=== PATIENT | female | born 1995 | race Caucasian/White ===

== ENCOUNTER 2017-06-29 12:46 | Emergency (ER) | payer SELFPAY ==
[2017-06-29] MEDS ORDERED: METHYLPREDNISOLONE 125 MG INJ ONE (14:09)
[2017-06-29] MEDS ORDERED: ALBUTEROL 2.5 MG/3 ML NEB SOL ONE (14:09)
[2017-06-29] MEDS ORDERED: HYDROCODONE/CHLORPHEN 5 ML/OSYR ONE (14:10)
--- NOTE | 2017-06-29 14:14 | RAD REPORT ---
EXAM DESCRIPTION: RAD - Chest Single View - 06/29/2017 1:57 pm CLINICAL HISTORY: Cough and chest pain. COMPARISON: 09/28/2016 FINDINGS: Portable technique limits examination quality. The lungs are grossly clear. The heart is normal in size. No displaced fractures. IMPRESSION: No acute intrathoracic process suspected.
--- NOTE | 2017-06-29 14:25 | EDPHYS ---
Physician Documentation [facility] Name: Ben Rosa Age: 22 yrs Sex: Female : 1995 Arrival Date: 06/29/2017 Time: 12:50 Bed 25 Private MD: ED Physician Roman Florez HPI: 06/29 13:39 This 22 yrs old Female presents to ER via Ambulatory with complaints of jr8 Congestion. 13:39 The patient reports fever, with an emergency department temperature of 99.6 degrees jr8 Fahrenheit. Onset: The symptoms/episode began/occurred gradually, 2 day(s) ago. Modifying factors: The patient has had contact with sick son. Associated signs and symptoms: Pertinent positives: chest pain, cough, nausea, runny nose, sinus congestion, shortness of breath, sore throat, vomiting. Severity of symptoms: At their worst the symptoms were moderate in the emergency department the symptoms are unchanged. The patient has not experienced similar symptoms in the past. The patient has not recently seen a physician. 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 - Social history:: Smoking status: Patient uses tobacco products, smokes one-half pack cigarettes per day. ROS: 13:39 Eyes: Negative for injury, pain, redness, and discharge, Neck: Negative for injury, jr8 pain, and swelling, Back: Negative for injury and pain, MS/Extremity: Negative for injury and deformity, Skin: Negative for injury, rash, and discoloration, Neuro: Negative for headache, weakness, numbness, tingling, and seizure. 13:39 Constitutional: Positive for body aches, chills, fever, malaise. 13:39 ENT: Positive for rhinorrhea, sinus congestion, sore throat, Negative for drainage from ear(s), ear pain, nasal discharge. 13:39 Cardiovascular: Positive for chest pain, with cough, Negative for edema, orthopnea, palpitations, paroxysmal nocturnal dyspnea. 13:39 Respiratory: Positive for cough, shortness of breath. 13:39 Abdomen/GI: Positive for nausea and vomiting, Negative for abdominal pain, diarrhea, constipation, abdominal cramps, abdominal distension, anorexia, dysphagia, hematemesis, black/tarry stool, rectal pain, rectal bleeding, bowel incontinence, flatulence. Exam: 13:39 Head/Face: Normocephalic, atraumatic. Eyes: Pupils equal round and reactive to light, jr8 extra-ocular motions intact. Lids and lashes normal. Conjunctiva and sclera are non-icteric and not injected. Cornea within normal limits. Periorbital areas with no swelling, redness, or edema. Neck: Trachea midline, no thyromegaly or masses palpated, and no cervical lymphadenopathy. Supple, full range of motion without nuchal rigidity, or vertebral point tenderness. No Meningismus. Cardiovascular: Regular rate and rhythm with a normal S1 and S2. No gallops, murmurs, or rubs. Normal PMI, no JVD. No pulse deficits. Abdomen/GI: Soft, non-tender, with normal bowel sounds. No distension or tympany. No guarding or rebound. No evidence of tenderness throughout. Back: No spinal tenderness. No costovertebral tenderness. Full range of motion. Skin: Warm, dry with normal turgor. Normal color with no rashes, no lesions, and no evidence of cellulitis. MS/ Extremity: Pulses equal, no cyanosis. Neurovascular intact. Full, normal range of motion. Neuro: Awake and alert, GCS 15, oriented to person, place, time, and situation. Cranial nerves II-XII grossly intact. Motor strength 5/5 in all extremities. Sensory grossly intact. Cerebellar exam normal. Normal gait. 13:39 ENT: Exam is negative for earache, ear discharge, TM abnormalities, Nose: External nose: no obvious acute abnormality, Nasal septum: is midline, Nasal mucosa: erythematous, moist, Turbinates: are swollen bilaterally, Mouth: Lips: moist, Oral mucosa: pink and intact, moist, Gums: pink, Tongue: is moist, Posterior pharynx: Airway: patent, Tonsils: are normal in appearance, no enlargement, no erythema, no exudate, no ulcerations, Uvula: midline, non-edematous, no erythema, swelling, is not appreciated, erythema, that is mild. 13:39 Respiratory: the patient does not display signs of respiratory distress, Respirations: normal, symetrical, no use of accessory muscles, no grunting, no evidence of nasal flaring, no prolonged exhalations, no pursed lip breathing, no retractions, no shallow respirations, no splinting, no tachypnea, Breath sounds: bronchial sounds, that are mild, are heard diffusely. Vital Signs: 13:00 BP 128 / 95; Pulse 85; Resp 16; Temp 99.6(TE); Pulse Ox 100% ; Weight 74.84 kg; Height hb 5 ft. 4 in. (162.56 cm); Pain 4/10; 13:39 BP 114 / 68; Pulse 80; Resp 18; Temp 99.9; Pulse Ox 100% ; tl3 14:31 BP 102 / 82; Pulse 76; Resp 18; Pulse Ox 100% ; tl3 13:00 Body Mass Index 28.32 (74.84 kg, 162.56 cm) hb MDM: 13:14 Patient medically screened. jr8 14:24 Data reviewed: vital signs, nurses notes, lab test result(s), Flu: negative radiologic jr8 studies, plain films, and as a result, I will discharge patient. Data interpreted: Pulse oximetry: on room air is 100 %. Interpretation: normal. Counseling: I had a detailed discussion with the patient and/or guardian regarding: the historical points, exam findings, and any diagnostic results supporting the discharge/admit diagnosis, lab results, radiology results, the need for outpatient follow up, a family practitioner, to return to the emergency department if symptoms worsen or persist or if there are any questions or concerns that arise at home. 06/29 13:23 Order name: Flu; Complete Time: 14:25 jr8 06/29 13:23 Order name: Strep; Complete Time: 14:25 jr8 06/29 13:23 Order name: XRAY Chest (1 view); Complete Time: 14:15 jr8 06/29 14:25 Order name: Throat Culture EDMS Administered Medications: 13:53 Drug: Tussionex Pennkinetic ER 5 ml Route: PO; tl3 14:37 Follow up: Response: No adverse reaction; Marked relief of symptoms; Pain is decreased tl3 13:55 Drug: Albuterol 2.5 mg Route: Inhalation; tl3 14:38 Follow up: Response: No adverse reaction; Marked relief of symptoms tl3 14:02 Drug: SOLU-Medrol 125 mg Route: IM; Site: left gluteus; tl3 14:38 Follow up: Response: No adverse reaction; Marked relief of symptoms tl3 Disposition: 15:26 Co-signature as Attending Physician, Roman Florez MD I agree with the assessment and kdr plan of care. Disposition: 06/29/17 14:24 Discharged to Home. Impression: Acute bronchitis, Acute pharyngitis. - Condition is Stable. - Discharge Instructions: Acute Bronchitis. - Prescriptions for Zithromax Z- Real 250 mg Oral Tablet - take 1 tablet by ORAL route as directed for 5 days Day 1 - take two (2) tablets one time. Day 2, 3, 4 , 5 take one (1) tablet once daily.; 6 tablet. Albuterol Sulfate 90 mcg/actuation - inhale 1-2 puff by INHALATION route every 4-6 hours; 1 Inhaler. Guaifenesin AC 10- 100 mg/5 mL Oral Liquid - take 10 milliliter by ORAL route every 4 hours As needed; 240 milliliter. - Medication Reconciliation Form, Thank You Letter, Antibiotic Education, Prescription Opioid Use form. - Follow up: Private Physician; When: 2 - 3 days; Reason: Recheck today's complaints, Continuance of care, Re-evaluation by your physician. - Problem is new. - Symptoms have improved. Signatures: Dispatcher [employer] EDIN Roman Florez MD MD kdr Roszak, Josh, PA PA jr8 Bharati Bella RN RN Mary Mahoney RN RN tl3
--- NOTE | 2017-06-29 14:25 | ER ---
Nurse's Notes [facility] Name: Ben Rosa Age: 22 yrs Sex: Female : 1995 Arrival Date: 06/29/2017 Time: 12:50 Bed 25 Private MD: Diagnosis: Acute bronchitis;Acute pharyngitis Presentation: 06/29 13:01 Presenting complaint: Patient states: Nonproductive cough, pain with cough, sinus hb congestin x 4 days. 13:03 Transition of care: patient was not received from another setting of care. Onset of hb symptoms is unknown. Care prior to arrival: None. 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 - Social history:: Smoking status: Patient uses tobacco products, smokes one-half pack cigarettes per day. Screenin:39 Abuse screen: Denies threats or abuse. Nutritional screening: No deficits noted. tl3 Tuberculosis screening: No symptoms or risk factors identified. Fall Risk None identified. Assessment: 13:39 General: Appears uncomfortable, well groomed, well developed, well nourished, Behavior tl3 is cooperative, appropriate for age, anxious. Pain: Complains of pain in chest and throat Pain currently is 8 out of 10 on a pain scale. Neuro: Level of Consciousness is awake, alert, obeys commands, Oriented to person, place, time, situation, Appropriate for age. Cardiovascular: Denies Heart tones S1 S2 present Capillary refill < 3 seconds in right in left in bilateral. Respiratory: Reports cough that is productive, hacking, persistent. GI: No signs and/or symptoms were reported involving the gastrointestinal system. GI: No signs and/or symptoms were reported involving the gastrointestinal system. Reports posttussive emesis. : No signs and/or symptoms were reported regarding the genitourinary system. EENT: No signs and/or symptoms were reported regarding the EENT system. Derm: No signs and/or symptoms reported regarding the dermatologic system. Musculoskeletal: No signs and/or symptoms reported regarding the musculoskeletal system. 14:31 Reassessment: Patient and/or family updated on plan of care and expected duration. Pain tl3 level reassessed. Patient is alert, oriented x 3, equal unlabored respirations, skin warm/dry/pink. pt breathing much easier, states that throat is still a little sore from all the coughing but overall she was feeling much better Patient states feeling better. Vital Signs: 13:00 BP 128 / 95; Pulse 85; Resp 16; Temp 99.6(TE); Pulse Ox 100% ; Weight 74.84 kg; Height hb 5 ft. 4 in. (162.56 cm); Pain 4/10; 13:39 BP 114 / 68; Pulse 80; Resp 18; Temp 99.9; Pulse Ox 100% ; tl3 14:31 BP 102 / 82; Pulse 76; Resp 18; Pulse Ox 100% ; tl3 13:00 Body Mass Index 28.32 (74.84 kg, 162.56 cm) hb ED Course: 12:50 Patient arrived in ED. mr 13:03 Triage completed. hb 13:04 Arm band placed on right wrist. hb 13:14 Mj Smith PA is PHCP. jr8 13:14 Roman Florez MD is Attending Physician. jr8 13:39 Mary Mahoney, JORGE LUIS is Primary Nurse. tl3 13:39 No apparent distress. Resting quietly. tl3 13:39 Patient has correct armband on for positive identification. Bed in low position. Call tl3 light in reach. Side rails up X 1. Adult w/ patient. Warm blanket given. 13:39 No provider procedures requiring assistance completed. tl3 13:57 XRAY Chest (1 view) In Process Unspecified. EDMS 14:37 Throat Culture Sent. tl3 14:40 Patient did not have IV access during this emergency room visit. tl3 Administered Medications: 13:53 Drug: Tussionex Pennkinetic ER 5 ml Route: PO; tl3 14:37 Follow up: Response: No adverse reaction; Marked relief of symptoms; Pain is decreased tl3 13:55 Drug: Albuterol 2.5 mg Route: Inhalation; tl3 14:38 Follow up: Response: No adverse reaction; Marked relief of symptoms tl3 14:02 Drug: SOLU-Medrol 125 mg Route: IM; Site: left gluteus; tl3 14:38 Follow up: Response: No adverse reaction; Marked relief of symptoms tl3 Outcome: 14:24 Discharge ordered by MD. joel 14:38 Discharged to home ambulatory. tl3 14:38 Condition: good 14:38 Discharge instructions given to patient, Instructed on discharge instructions, follow up and referral plans. medication usage, Demonstrated understanding of instructions, follow-up care, medications, Prescriptions given X 3, demonstrated proper inhaler use, stressed fluid intake 14:40 Patient left the ED. tl3 Signatures: Dispatcher [employer] EDNupur Grant Josh, PA PA jr8 Bharati Bella, RN RN Mary Mahoney RN RN tl3 Corrections: (The following items were deleted from the chart) 13:59 13:39 BP 114 / 68; Pulse 80bpm; Resp 80bpm; Pulse Ox 100%; Temp 99.9F; tl3 tl3
== END 2017-06-29 14:40 | disposition home or self-care (01) ==
LOC: ER 12:46
DX: J20.9 Acute bronchitis, unspecified (principal); J02.9 Acute pharyngitis, unspecified; F17.210 Nicotine dependence, cigarettes, uncomplicated; Z88.0 Allergy status to penicillin; Z88.1 Allergy status to other antibiotic agents
CPT/HCPCS: 71045; 87070; 87081; 87804; 96372; 99284; J2930

== ENCOUNTER 2019-12-23 07:37 | Day surgery (SDC) | payer BC ==
--- OUTSIDE RECORDS SUMMARY | 2019-12-23 07:47 | XMS REPORT | Continuity of Care Document ---
:[address] [facility] t Address [address] [place] [address] Care Team Providers Name Role Phone Res-Colpo/Leep Attending Clinician Unavailable Doctor Unassigned, Name Attending Clinician Unavailable Problems This patient has no known problems. Allergies, Adverse Reactions, Alerts This patient has no known allergies or adverse reactions. Medications This patient has no known medications. Procedures This patient has no known procedures. Encounters Start End Encounter Admission Attending Care Care Encounter Source Date/Time Date/Time Type Type Clinicians Facility Department ID 2019-10-28 2019-10-30 Office Res-Colpo/L [facility] [id number] 10:03:42 10:59:07 Visit Roslyn campbell [id number] [facility] [id number] 2019-10-29 2019-10-29 Orders Doctor ZAMARRIPA [id number] 30 00:00:00 00:00:00 Only UnassignedYONATAN [id number] [place] [facility] [id number] Results This patient has no known results.
[2019-12-23] MEDS ORDERED: Ringers Lactate 1,000 ML IV ONE ×2 (08:18→10:17)
[2019-12-23] MEDS ORDERED: LIDOCAINE 2% MPF 5 ML VIAL ONE (09:07)
[2019-12-23] MEDS ORDERED: propofoL 200 MG/20 ML VIAL IV ONE (09:07)
[2019-12-23] MEDS ORDERED: FENTANYL CITR 100 MCG/2 ML ONE ×2 (09:07)
[2019-12-23] MEDS ORDERED: MIDAZOLAM HCL 2 MG/2 ML INJ ONE (09:07)
[2019-12-23] MEDS ORDERED: KETOROLAC 30 MG/ML INJ ONE (09:07)
[2019-12-23] MEDS ORDERED: KETAMINE HCL 500 MG/5 ML VIAL ONE (09:07)
[2019-12-23] MEDS ORDERED: ONDANSETRON 4 MG/2 ML VIAL ONE (09:07)
[2019-12-23] MEDS ORDERED: dexAMETHasone 10 MG/ML VIAL ONE (09:07)
[2019-12-23] MEDS ORDERED: HYDROMORPHONE HCL 1 MG/ML INJ ONE (09:09)
[2019-12-23] MEDS ORDERED: CIPROFLOXACIN 400mg IV 400 MG/200 ML BAG IV ONE (09:12)
[2019-12-23] MEDS ORDERED: NS 0.9% VIAL 10 ML ONE (09:31)
--- NOTE | 2019-12-23 09:35 | P.BOP ---
Preoperative diagnosis: perianal abscess Postoperative diagnosis: same Primary procedure: EUA, anoscopy, rigid proctoscopy, I &D perianal abscess Estimated blood loss: <10cc Specimen: pus Findings: abscess Anesthesia: General Complications: None Transferred to: Recovery Room Condition: Good
[2019-12-23] MEDS: HYDROMORPHONE HCL 1 MG/ML INJ ONE ×2 (10:35→10:40)
[2019-12-23] MEDS ORDERED: PROMETHAZINE INJ 25 MG/ML AMP ONE (10:49)
--- NOTE | 2019-12-23 11:31 | OP ---
Surgeon: Juan Carrion MD Diagnosis: Perianal abscess. Procedures: EUA, anoscopy, proctoscopy, incision and drainage of perianal abscess. Disposition: Home. Packing: Nu Gauze 1 quarter of an inch daily. The patient has taken already Cipro. We are going to give her Ultram for pain and a normal saline kyra ttle. MATTI/MERCEDES Voice ID: [id number] Report ID: [id number]
--- NOTE | 2019-12-23 11:34 | OP ---
Date of Procedure: 12/23/2019 Surgeon: Juan Carrion MD Preoperative Diagnosis: Perianal abscess. Postoperative Diagnosis: Perianal abscess. Procedures: Examination under anesthesia, anoscopy, rigid proctoscopy, incision and drainage of damian anal abscess. Anesthesia: General plus local. Packing: Iodoform quarter of an inch. Indications: This is the case of a female, who comes to us with history of Crohn disease, history of previous fistulas. Now, she has a perianal abscess. Not too long ago, we have to take care of 1 of her fistulous abscess and she improved from that when she healed completely. Now, this is a new 1 i n the anterior perianal region. It is tender. She can barely sit, so she was seen few hours ago. S he wants to have this done as soon as possible. So, we booked emergently for the above procedure wit h benefits, alternatives, and risks including, but not limited to infection, bleeding, damage to marky cent structures, anesthesia complication, recurrence, anal stricture and incontinence, bowel perforat ion, DC, and even . She also understands this may not relieve any symptoms. She might need mor e than one surgical intervention. She understands she should go back to the [employer] sure her Crohn disease or inflammatory bowel disease are treated properly to avoid flare-up in ca se this are related to fistulas or sometimes associated with inflammatory bowel disease. She underst ood and signed the consent. Description Of Procedure: The patient was brought to the operating room, placed in supine position, anesthesia was done without complication. The patient was placed in lithotomy position with proper p rotection. A time-out was called. Perianal area was prepped and draped in usual sterile fashion. R ectal examination was done followed by rigid proctoscopy all the way about a 13 cm limited by amount of stools present. After that, I proceeded to place an anoscope weaned on the side. This allowed me to visualize the anal canal. We did not see any connection of this abscess to the rectum. So, at t hat time, we made an incision in the anterior perianal region and we found a large amount of pus pres ent. The loculations were explored and opened. Irrigation was done. Hemostasis was obtained. Loca l anesthesia was applied. The area was packed with iodoform quarter of an inch. The patient tolerat ed the procedure well. The patient sent to recovery in stable condition. MATTI/MERCEDES Voice ID: [id number] Report ID: [id number]
[2019-12-23] MEDS ORDERED: TRAMADOL HCL 50 MG TAB ONE (12:41)
[2019-12-23 12:46] VITALS: BP 101/59; TEMP 97.6; O2SAT 96
== END 2019-12-23 12:45 | disposition home or self-care (01) ==
LOC: PRE 07:37 → DS 12:45
PROVIDERS: ATTEND Surgery
PROC: 0D9Q0ZZ Drainage of Anus, Open Approach (ICD-10-PCS; 2019-12-23)
PROC: 0DJD8ZZ Inspection of Lower Intestinal Tract, Via Natural or Artificial Opening Endoscopic (ICD-10-PCS; principal; 2019-12-23 09:00)
DX: K61.0 Anal abscess (principal); F17.210 Nicotine dependence, cigarettes, uncomplicated
CPT/HCPCS: 87070; 87205; 87075; 46050; 45300; J2704; J2550; J2250; J3010 ×2; J1100; J1170 ×2; J7120 ×2; J2405; J0744

== ENCOUNTER 2020-02-19 13:29 | Inpatient (IN) | payer BC ==
--- OUTSIDE RECORDS SUMMARY | 2020-02-19 14:05 | XMS REPORT | Continuity of Care Document ---
:[address] [facility] t Address [address] [place] [address] Care Team Providers Name Role Phone Res-Colpo/Leep [...] ID 2019-10-28 2019-10-30 Office Res-Colpo/L [facility] [id number] 10:03:42 10:59:07 Visit shannan [facility] [id number] [facility] [id number] 2019-10-29 2019-10-29 Orders Doctor ZAMARRIPA [id number] 30 00:00:00 00:00:00 Only UnassignedYONATAN [id number] [place] [facility] [id number] Results This patient has no known results.
[2020-02-19 15:11] LABS: Urine Blood NEGATIVE (NEG); Urine Glucose NEGATIVE (NEG); Urine Protein NEGATIVE (NEG); Urine Specific Gravity 1.015 (1.005-1.030)
[2020-02-19] MEDS ORDERED: ONDANSETRON 4 MG/2 ML VIAL ONE ×2 (15:15→19:30)
[2020-02-19] MEDS ORDERED: NA CHLORIDE 0.9% 1,000 ML ONE (15:15)
[2020-02-19] MEDS ORDERED: MORPHINE 4 MG/ML SYR ONE ×2 (15:15→20:05)
[2020-02-19] MEDS ORDERED: FAMOTIDINE 20 MG/2 ML VIAL IV ONE (15:15)
[2020-02-19 15:41] LABS: Absolute Lymphocytes (CBC) 2.9 K/uL (0.7-4.9); Basophils % 0.7 % (0-1.3); Hematocrit 39.3 % (36.0-45.0); Lymphocytes % 26.2 % (15.3-44.8); MPV 10.5 fL (7.6-11.3); RBC Red Blood Cell Count 4.29 M/uL (3.86-4.86)
[2020-02-19 15:51] LABS: ALT/SGPT 31 U/L (12-78); AST/SGOT 18 U/L (15-37); Albumin 3.8 g/dL (3.4-5.0); Alkaline Phosphatase 74 U/L (45-117); BUN Blood Urea Nitrogen 15 mg/dL (7-18); Bicarbonate 29 mmol/L (21-32); Bilirubin Direct < 0.1 mg/dL (0-0.2); Bilirubin Total 0.4 mg/dL (0.2-1.0); Glucose Level 78 mg/dL (74-106); Lipase 67 U/L (73-393); Potassium 3.7 mmol/L (3.5-5.1); Protein, Total 7.8 g/dL (6.4-8.2); Sodium Level 139 mmol/L (136-145)
--- NOTE | 2020-02-19 16:20 | RAD REPORT ---
EXAM DESCRIPTION: CTAbdomen Pelvis W Contrast - 02/19/2020 4:07 pm CLINICAL HISTORY: Abdominal pain. abdominal pain, rectal pain COMPARISON: Abdomen Pelvis W Contrast dated 10/30/2015; Abdomen Pelvis W Contrast dated 09/27/2015 TECHNIQUE: Biphasic CT imaging of the abdomen and pelvis was performed with 100 ml non-ionic IV cont rast. All CT scans are performed using dose optimization technique as appropriate and may include automated exposure control or mA/KV adjustment according to patient size. FINDINGS: The lung bases are clear. The liver, spleen, pancreas, adrenal glands and kidneys are within normal limits. No bowel obstruction, free air, free fluid or abscess. The appendix is normal. No evidence of signi ficant lymphadenopathy. No suspicious bony findings. 25 mm Bartholin's cyst along the right. Perianal soft tissues appear prominent without discrete perianal abscess seen. There may be a promine nt fistulous tract seen in the right medial buttock. IMPRESSION: Prominent perianal soft tissues are present probable fistulous tract in the medial right buttocks soft tissues. No evidence of perianal abscess.
[2020-02-19] MEDS ORDERED: Levofloxacin 750mg IV 750 MG/150 ML BAG IV ONE (17:51)
--- NOTE | 2020-02-19 18:41 | EDPHYS ---
Physician Documentation [facility] Name: Ben Rosa Age: 24 yrs Sex: Female : 1995 Arrival Date: 02/19/2020 Time: 13:30 Bed 16 Private MD: ED Physician Arcenio Chua HPI: 02/18 14:53 This 24 yrs old Female presents to ER via Ambulatory with complaints of jmm Nausea, Anal Fistula. 14:53 The patient presents to the emergency department with nausea, vomiting, abdominal pain. jmm Onset: The symptoms/episode began/occurred gradually. Possible causes: flare up of bowel problem. The symptoms are aggravated by nothing. The symptoms are alleviated by nothing. Associated signs and symptoms: Pertinent negatives: fever. The patient has experienced similar episodes in the past. 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 - Social history:: Smoking status: Patient denies any tobacco usage or history of. ROS: 14:53 Constitutional: Negative for fever, chills, and weight loss, Cardiovascular: Negative jmm for chest pain, palpitations, and edema, Respiratory: Negative for shortness of breath, cough, wheezing, and pleuritic chest pain. 14:53 Abdomen/GI: Positive for abdominal pain, rectal pain. 14:53 All other systems are negative. Exam: 14:53 Constitutional: This is a well developed, well nourished patient who is awake, alert, jmm and in no acute distress. Head/Face: atraumatic. Eyes: EOMI, no conjunctival erythema appreciated ENT: Moist Mucus Membranes Neck: Trachea midline, Supple Chest/axilla: Normal chest wall appearance and motion. Cardiovascular: Regular rate and rhythm. No edema appreciated Respiratory: Normal respirations, no respiratory distress appreciated Abdomen/GI: Non distended, soft Back: Normal ROM Skin: General appearance color normal MS/ Extremity: Moves all extremities, no obvious deformities appreciated, no edema noted to the lower extremities Neuro: Awake and alert, normal gait Psych: Behavior is normal, Mood is normal, Patient is cooperative and pleasant 14:53 Abdomen/GI: Palpation: soft, moderate abdominal tenderness, in the left upper quadrant and left lower quadrant. 14:53 Back: ROM is normal. 14:53 Musculoskeletal/extremity: ROM: intact in all extremities. 14:53 Skin: Appearance: Color: normal in color. 14:53 Neuro: Orientation: is normal, Mentation: is normal, Memory: is normal. 14:53 Psych: Behavior/mood is pleasant, cooperative. Vital Signs: 14:23 BP 115 / 67; Pulse 67; Resp 16; Temp 98.2; Pulse Ox 100% on R/A; Weight 91.63 kg (R); iw Height 5 ft. 4 in. (162.56 cm); Pain 4/10; 15:30 BP 110 / 81; Pulse 71; Resp 16 S; Pulse Ox 100% ; ca1 16:35 BP 109 / 53; Pulse 81; Resp 16 S; Pulse Ox 100% on R/A; ca1 17:35 BP 103 / 61; Pulse 79; Resp 16 S; Pulse Ox 100% on R/A; ca1 18:32 BP 122 / 86; Pulse 91; Resp 16 S; Pulse Ox 100% on R/A; ca1 19:50 BP 114 / 74; Pulse 70; Resp 16 S; Pulse Ox 100% on R/A; ca1 14:23 Body Mass Index 34.67 (91.63 kg, 162.56 cm) iw MDM: 14:31 Patient medically screened. caro 18:37 Data reviewed: vital signs, nurses notes. Counseling: I had a detailed discussion with jose l the patient and/or guardian regarding: the historical points, exam findings, and any diagnostic results supporting the discharge/admit diagnosis, radiology results, the need for further work-up and treatment in the hospital. ED course: I discussed the patient with Dr. Carrion whom will consult on admission. I discussed the patient with Mj Márquez PA-C whom accepted the patient to Dr. Souza's service. . 02/18 14:48 Order name: Basic Metabolic Panel; Complete Time: 15:54 [facility] 02/18 14:48 Order name: CBC with Diff; Complete Time: 15:54 [facility] 02/18 14:48 Order name: Hepatic Function; Complete Time: 15:54 [facility] 02/18 14:48 Order name: Lipase; Complete Time: 15:54 [facility] 02/18 15:08 Order name: Urine Dipstick--Ancillary (enter results); Complete Time: 15:46 [facility] 02/18 15:08 Order name: Urine --Ancillary (enter results); Complete Time: 15:46 [facility] 02/18 14:48 Order name: CT Abd/Pelvis - IV Contrast Only; Complete Time: 16:23 [facility] 02/18 14:48 Order name: IV Saline Lock; Complete Time: 15:10 [facility] 02/18 14:48 Order name: Labs collected and sent; Complete Time: 15:10 [facility] 02/18 14:48 Order name: Urine Dipstick-Ancillary (obtain specimen); Complete Time: 15:06 [facility] 02/18 14:48 Order name: Urine Test (obtain specimen); Complete Time: 15:06 [facility] 02/18 18:48 Order name: CONS Physician Consult EDMS Administered Medications: 15:09 Drug: NS 0.9% 1000 ml Route: IV; Rate: 1 bolus; Site: left antecubital; ca1 16:10 Follow up: Response: No adverse reaction; IV Status: Completed infusion; IV Intake: ca1 1000ml 15:10 Drug: Pepcid 20 mg Route: IVP; Site: left antecubital; ca1 16:00 Follow up: Response: No adverse reaction ca1 15:12 Drug: Zofran (Ondansetron) 4 mg Route: IVP; Site: left antecubital; ca1 17:35 Follow up: Response: No adverse reaction; Nausea is decreased; RASS: Alert and Calm (0) ca1 15:14 Drug: morphine 4 mg {Note: rass 0.} Route: IVP; Site: left antecubital; ca1 16:00 Follow up: Response: No adverse reaction; Pain is decreased; RASS: Alert and Calm (0) ca1 17:40 Drug: LevaQUIN 750 mg Volume: 150 ml; Route: IVPB; Infused Over: 90 mins; Site: left ca1 antecubital; 19:55 Follow up: Response: No adverse reaction; IV Status: Completed infusion ca1 19:21 Drug: Zofran (Ondansetron) 4 mg Route: IVP; Site: left antecubital; ca1 20:00 Follow up: Response: No adverse reaction; Nausea is decreased ca1 19:55 Drug: morphine 4 mg {Note: rass 0.} Route: IVP; Site: left antecubital; ca1 20:30 Follow up: Response: No adverse reaction; Pain is decreased; RASS: Alert and Calm (0) ca1 19:58 Drug: vancoMYCIN 1 grams Route: IVPB; Infused Over: 2 hrs; Site: left antecubital; ca1 20:55 Follow up: Response: No adverse reaction; IV Status: Infusion continued upon admission ca1 Disposition: 02/19 06:00 Co-signature as Attending Physician, Arcenio Chua MD I agree with the assessment and [facility] plan of care. Disposition: 02/19/20 18:40 Hospitalization ordered by Ascenc[facility] Souza for Observation. Preliminary diagnosis are Perineal Cellulitis, Intractable Pain, Vomiting. - Bed requested for Telemetry/MedSurg (observation). - Status is Observation. jd3 - Condition is Stable. - Problem is an acute exacerbation. - Symptoms are unchanged. Signatures: Dispatcher [employer] Alida Gonzales RN RN dw Anderson, Corey, MD MD cha Mickail, Joel, PA PA jmm Roszak, Josh, PA PA [id number] Alhaji Redman RN RN jd3 Cierra Sosa RN RN ca1 Corrections: (The following items were deleted from the chart) 02/18 19:52 18:40 Hospitalization Ordered by Ascencion Souza for Observation. Preliminary diagnosis dw is Perineal Cellulitis; Intractable Pain; Vomiting. Bed requested for Telemetry/MedSurg (observation). Status is Observation. Condition is Stable. Problem is an acute exacerbation. Symptoms are unchanged. [facility] 20:02 19:52 02/19/2020 18:40 Hospitalization Ordered by Ascencion Souza for Observation. dw Preliminary diagnosis is Perineal Cellulitis; Intractable Pain; Vomiting. Bed requested for Telemetry/MedSurg (observation). Status is Observation. Condition is Stable. Problem is an acute exacerbation. Symptoms are unchanged. 20:55 20:02 02/19/2020 18:40 Hospitalization Ordered by Ascencion Souza for Observation. jd3 Preliminary diagnosis is Perineal Cellulitis; Intractable Pain; Vomiting. Bed requested for Telemetry/MedSurg (observation). Status is Observation. Condition is Stable. Problem is an acute exacerbation. Symptoms are unchanged.
--- NOTE | 2020-02-19 18:41 | ER ---
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 i cant stop throwing up as well. I called the GI center and Dr. Carrion and they told me to come here. Coronavirus screen: At this time, unable to obtain information related to travel outside the [place] Ebola Screen: No symptoms or risks identified at this time. 14:21 Method Of Arrival: Ambulatory iw 14:23 Initial Sepsis Screen: Does the patient meet any 2 criteria? No. Patient's initial iw sepsis screen is negative. Does the patient have a suspected source of infection? No. Patient's initial sepsis screen is negative. Risk Assessment: Do you want to hurt yourself or someone else? Patient reports no desire to harm self or others. Onset of symptoms is unknown. 14:23 Acuity: JOSE 3 iw Triage Assessment: 20:05 GI: Reports. ca1 20:31 General: Behavior is. 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 - Social history:: Smoking status: Patient denies any tobacco usage or history of. Screenin:45 Abuse screen: Denies threats or abuse. Denies injuries from another. Nutritional ca1 screening: No deficits noted. Tuberculosis screening: No symptoms or risk factors identified. Fall Risk IV access (20 points). Assessment: 14:30 General: Appears in no apparent distress. comfortable. Pain: Complains of pain in left ca1 lower quadrant and left upper quadrant Pain currently is 7 out of 10 on a pain scale. Neuro: Level of Consciousness is awake, alert, obeys commands, Oriented to person, place, time, situation. Cardiovascular: Heart tones S1 S2 present Capillary refill < 3 seconds Patient's skin is warm and dry. Respiratory: Airway is patent Respiratory effort is even, unlabored, Respiratory pattern is regular, symmetrical, Breath sounds are clear bilaterally. GI: Abdomen is round non-distended, Bowel sounds present X 4 quads. Abd is soft and non tender X 4 quads. : No signs and/or symptoms were reported regarding the genitourinary system. EENT: No signs and/or symptoms were reported regarding the EENT system. Derm: Skin is intact, is healthy with good turgor, Skin is pink, warm \T\ dry. Musculoskeletal: Circulation, motion, and sensation intact. Capillary refill < 3 seconds. 15:30 Reassessment: Patient appears in no apparent distress at this time. Patient and/or ca1 family updated on plan of care and expected duration. Pain level reassessed. Patient is alert, oriented x 3, equal unlabored respirations, skin warm/dry/pink. 16:35 Reassessment: Patient appears in no apparent distress at this time. Patient and/or ca1 family updated on plan of care and expected duration. Pain level reassessed. Patient is alert, oriented x 3, equal unlabored respirations, skin warm/dry/pink. 17:35 Reassessment: Patient appears in no apparent distress at this time. Patient and/or ca1 family updated on plan of care and expected duration. Pain level reassessed. Patient is alert, oriented x 3, equal unlabored respirations, skin warm/dry/pink. 18:35 Reassessment: Patient appears in no apparent distress at this time. Patient and/or ca1 family updated on plan of care and expected duration. Pain level reassessed. Patient is alert, oriented x 3, equal unlabored respirations, skin warm/dry/pink. 19:35 Reassessment: Patient appears in no apparent distress at this time. Patient and/or ca1 family updated on plan of care and expected duration. Pain level reassessed. Patient is alert, oriented x 3, equal unlabored respirations, skin warm/dry/pink. Vital Signs: 14:23 BP 115 / 67; Pulse 67; Resp 16; Temp 98.2; Pulse Ox 100% on R/A; Weight 91.63 kg (R); iw Height 5 ft. 4 in. (162.56 cm); Pain 4/10; 15:30 BP 110 / 81; Pulse 71; Resp 16 S; Pulse Ox 100% ; ca1 16:35 BP 109 / 53; Pulse 81; Resp 16 S; Pulse Ox 100% on R/A; ca1 17:35 BP 103 / 61; Pulse 79; Resp 16 S; Pulse Ox 100% on R/A; ca1 18:32 BP 122 / 86; Pulse 91; Resp 16 S; Pulse Ox 100% on R/A; ca1 19:50 BP 114 / 74; Pulse 70; Resp 16 S; Pulse Ox 100% on R/A; ca1 14:23 Body Mass Index 34.67 (91.63 kg, 162.56 cm) iw ED Course: 13:30 Patient arrived in ED. ag5 14:23 Triage completed. iw 14:23 Arm band placed on right wrist. iw 14:25 Sony Hudson PA is PHCP. jmm 14:25 Arcenio Chua MD is Attending Physician. jmm 14:42 Cierra Sosa, JORGE LUIS is Primary Nurse. ca1 15:05 Inserted saline lock: 22 gauge in left antecubital area, using aseptic technique. ca1 ,using aseptic technique. by Alpa, process control tech Blood collected. 15:45 Patient has correct armband on for positive identification. Placed in gown. Bed in low ca1 position. Call light in reach. Side rails up X 1. Pulse ox on. NIBP on. Warm blanket given. 15:45 No provider procedures requiring assistance completed. ca1 16:06 CT Abd/Pelvis - IV Contrast Only In Process Unspecified. EDMS 18:39 Ascencion Souza is Hospitalizing Provider. jmm 20:30 Patient admitted, IV remains in place. ca1 Administered Medications: 15:09 Drug: NS 0.9% 1000 ml Route: IV; Rate: 1 bolus; Site: left antecubital; ca1 16:10 Follow up: Response: No adverse reaction; IV Status: Completed infusion; IV Intake: ca1 1000ml 15:10 Drug: Pepcid 20 mg Route: IVP; Site: left antecubital; ca1 16:00 Follow up: Response: No adverse reaction ca1 15:12 Drug: Zofran (Ondansetron) 4 mg Route: IVP; Site: left antecubital; ca1 17:35 Follow up: Response: No adverse reaction; Nausea is decreased; RASS: Alert and Calm (0) ca1 15:14 Drug: morphine 4 mg {Note: rass 0.} Route: IVP; Site: left antecubital; ca1 16:00 Follow up: Response: No adverse reaction; Pain is decreased; RASS: Alert and Calm (0) ca1 17:40 Drug: LevaQUIN 750 mg Volume: 150 ml; Route: IVPB; Infused Over: 90 mins; Site: left ca1 antecubital; 19:55 Follow up: Response: No adverse reaction; IV Status: Completed infusion ca1 19:21 Drug: Zofran (Ondansetron) 4 mg Route: IVP; Site: left antecubital; ca1 20:00 Follow up: Response: No adverse reaction; Nausea is decreased ca1 19:55 Drug: morphine 4 mg {Note: rass 0.} Route: IVP; Site: left antecubital; ca1 20:30 Follow up: Response: No adverse reaction; Pain is decreased; RASS: Alert and Calm (0) ca1 19:58 Drug: vancoMYCIN 1 grams Route: IVPB; Infused Over: 2 hrs; Site: left antecubital; ca1 20:55 Follow up: Response: No adverse reaction; IV Status: Infusion continued upon admission ca1 Intake: 16:10 IV: 1000ml; Total: 1000ml. ca1 Outcome: 18:40 Decision to Hospitalize by Provider. jose l 20:30 Admitted to Tele accompanied by [facility], via wheelchair, room 410, with chart, Report ca1 called to JORGE LUIS Cornell 20:30 Condition: stable ca1 20:30 Instructed on the need for admit. 20:55 Patient left the ED. [email or web address] Signatures: Dispatcher [employer] EDMS Sony Hudson PA PA jmm Williams, Irene, RN Alhaji Collins RN RN jCierra Grimaldo RN RN ca1 Shannan, Jeremy [facility]
[2020-02-19] MEDS ORDERED: VANCOMYCIN 1 GM/VIAL ONE (19:13)
[2020-02-19] MEDS ORDERED: NA CHLORIDE 0.9% 250 ML ONE (19:14)
[2020-02-19] MEDS ORDERED: ACETAMINOPHEN 500 MG TAB PO PRN (20:39)
[2020-02-19] MEDS: NA CHLORIDE 0.9% 1,000 ML IV SCH (22:00)
[2020-02-19 22:01] VITALS: BMI 34.7
[2020-02-20] MEDS ORDERED: VANCOMYCIN 1 GM/VIAL ONE (03:51)
[2020-02-20] MEDS ORDERED: NA CHLORIDE 0.9% 250 ML ONE (03:52)
[2020-02-20] MEDS ORDERED: VANCOMYCIN/NS 1 gm 1 GM/250 ML BAG IVPB SCH (04:00)
--- NOTE | 2020-02-20 04:50 | P.HP ---
Certification for Inpatient Patient admitted to: Inpatient With expected LOS: >2 Midnights Patient will require the following post-hospital care: None Practitioner: I am a practitioner with admitting privileges, knowledge of patient current condition, hospital course, and medical plan of care. Services: Services provided to patient in accordance with Admission requirements found in Title 42 Section 412.3 of the Code of Federal Regulations <Christian Smith - Last Filed: 02/20/20 04:42> Patient History Date of Service: 02/20/20 Primary Care Provider: Dr. Lanza Reason for admission: Perennial cellulitis History of Present Illness: This is a 24-year-old female with history of perianal abscess in the past. Patient subsequently was also supposed to be following up with gastroenterology for undiagnosed lower GI problems. Patient has had several bouts of cysts and perianal abscesses which have been concerning for other lower GI processes such as ulcerative colitis or Crohn's disease. General surgery had referred to GI but patient has not been able to have a colonoscopy secondary to COVID. The patient presented to the emergency room today for pain to the lower pelvic and buttock region. Patient stated that she was started on oral antibiotics by her surgeon but that the pain was getting worse so was referred to the emergency room. Patient was worked up in the emergency room and found to have soft tissue swelling around the buttocks and perineal region. No discernible abscess noted. Patient with 11,000 white cell count but no other acute blood work findings. At this time hospital medicine was consulted for admission. Patient was assessed by myself in the emergency room and found to have approximate only 2 mm hole to the perineum with scant purulent discharge and induration noted. As such patient will be admitted and put on antibiotics in general surgery will be consulted. Home medications list reviewed: Yes - Past Medical/Surgical History Has patient received pneumonia vaccine in the past: Yes Diabetic: No -: Fistula surgery 3x -: 3 adenoid surgery -: tonsillectomy - Family History Family History: Reviewed- Non-Contributory - Family History Father -: Heart disease, Hypertension Mother -: Hypertension, Seizures, Other (see notes) - Social History Smoking Status: Former smoker Smoking therapy provided: No Alcohol use: No CD- Drugs: No Caffeine use: Yes Place of Residence: Home <LuisChristian - Last Filed: 02/20/20 04:42> Date of Service: 02/20/20 <janeen buenrostro - Last Filed: 02/20/20 18:15> Allergies Penicillins Allergy (Verified 02/20/20 02:36) Unknown sulfamethoxazole [From Bactrim] Allergy (Verified 02/20/20 02:36) Unknown trimethoprim [From Bactrim] Allergy (Verified 02/20/20 02:36) Unknown Home Medications: NK [No Home Meds] 02/20/20 Review of Systems General: Unremarkable Eyes: Unremarkable ENT: Unremarkable Respiratory: Unremarkable Cardiovascular: Unremarkable Gastrointestinal: Unremarkable Genitourinary: Unremarkable Musculoskeletal: Unremarkable Integumentary: As per HPI Neurological: Unremarkable <Christian Smith - Last Filed: 02/20/20 04:42> Physical Examination - Vital Signs Temperature: 98.3 F Blood Pressure: 108/53 Pulse: 75 Respirations: 16 Pulse Ox (%): 96 - Physical Exam General: Alert, In no apparent distress, Oriented x3 HEENT: Normocephalic, PERRLA, Mucous membr. moist/pink, EOMI Neck: Supple, JVD not distended, No Thyromegaly Respiratory: Clear to auscultation bilaterally, Normal air movement Cardiovascular: No edema, Normal pulses, Regular rate/rhythm, Normal S1 S2, No gallops, No rubs, No murmurs Capillary refill: <2 Seconds Gastrointestinal: Normal bowel sounds, Soft and benign, Non-distended, No ascit es, No tenderness, No masses, No rebound, No guarding Musculoskeletal: No clubbing, No swelling, No contractures, No erythema, No tenderness, No warmth Integumentary: No rashes, No breakdown, No significant lesion, No tenderness/swelling, No erythema, No warmth, No cyanosis Neurological: Normal speech, Normal strength at 5/5 x4 extr, Normal tone, Sensation intact, Cranial nerves 3-12 intact, Normal affect Lymphatics: No axilla or inguinal lymphadenopathy External genitalia: No edema, No lesions, No masses, Non-tender Rectal: Other (Anus and perianal region without acute findings. Small noninflamed hemorrhoids noted. Perineum region with approximate 2 mm hole noted with scant purulent drainage and induration.) - Studies Laboratory Data (last 24 hrs) 02/19/20 14:58: WBC 11.2 H, Hgb 13.1, Hct 39.3, Plt Count 252 02/19/20 14:58: Sodium 139, Potassium 3.7, BUN 15, Creatinine 0.81, Glucose 78, Total Bilirubin 0.4, AST 18, ALT 31, Alkaline Phosphatase 74, Lipase 67 L <Christian Smith - Last Filed: 02/20/20 04:42> Assessment and Plan - Problems (Diagnosis) (1) Cellulitis, perineum Current Visit: Yes Status: Acute (2) Superficial abscess of perineum Current Visit: Yes Status: Acute - Plan 1. Patient will be on broad-spectrum antibiotics for cellulitis 2. Patient will have surgery consulted. I have spoke to Dr. Carrion will see patient today 3. Patient will be monitored for worsening of symptoms 4. Labs drawn in a.m. 5. Pain control and light fluids via IV Discharge Plan: Home Plan to discharge in: Greater than 2 days - Advance Directives Does patient have a Living Will: No Does patient have a Durable POA for Healthcare: No - Code Status/Comfort Care Code Status Assessed: Yes Code Status: Full Code Critical Care: No Time Spent Managing Pts Care (In Minutes): 70 <Christian Smith - Last Filed: 02/20/20 04:42> Physician Review: Patient Assessed, Agree with Above Assessment and Plan Physician Review Additional Text: Perineal abscess vs fistula. Plan: IV antibiotic-IV vancomycin, Levaquin and Flagyl. IV opioid for pain management. Awaiting general surgery consult. <janeen buenrostro - Last Filed: 02/20/20 18:15>
[2020-02-20 04:54] LABS: Absolute Lymphocytes (CBC) 2.6 K/uL (0.7-4.9); Basophils % 0.6 % (0-1.3); Hematocrit 34.9 % (36.0-45.0); Lymphocytes % 27.6 % (15.3-44.8); MPV 10.4 fL (7.6-11.3); RBC Red Blood Cell Count 3.84 M/uL (3.86-4.86)
[2020-02-20 05:11] LABS: Potassium 4.1 mmol/L (3.5-5.1)
[2020-02-20] MEDS ORDERED: NA CHLORIDE 0.9% 0 ML ONE (08:19)
[2020-02-20] MEDS: METRONIDAZOLE 500mg IVPB 500 MG/100 ML BAG IV SCH ×2 (09:28→16:28)
[2020-02-20] MEDS: NA CHLORIDE 0.9% 1,000 ML IV SCH (09:29)
[2020-02-20] MEDS: MORPHINE 4 MG/ML SYR IV PRN ×3 (10:20→18:54)
[2020-02-20] MEDS: ONDANSETRON 4 MG/2 ML VIAL IV PRN ×2 (10:20→16:34)
--- NOTE | 2020-02-20 13:45 | P.PN ---
Date of Service: 02/20/20 Patient seen and examined. She is complaining of anal area. She has been seen by Dr. Carrion who recommends antibiotics for now. Patient started on a diet. Continued antibiotics. Flagyl added to cover anaerobes.
[2020-02-20] MEDS: Levofloxacin500mg IV 500 MG/100 ML BAG IV SCH (16:27)
[2020-02-20] MEDS: ENOXAPARIN 40 MG/0.4 ML SQ SCH (16:28)
[2020-02-20] MEDS: VANCOMYCIN 1.5 GM in NA CHLORIDE 0.9% 500 ML IVPB SCH (17:31)
[2020-02-20] MEDS ORDERED: SODIUM CHLORIDE 0.9% 10ML INJ IV PRN (20:13)
[2020-02-20] MEDS: PROMETHAZINE INJ 25 MG/ML AMP IV PRN (20:25)
[2020-02-20] MEDS: PANTOPRAZOLE 40 MG INJ IVP SCH (20:26)
[2020-02-21] MEDS: METRONIDAZOLE 500mg IVPB 500 MG/100 ML BAG IV SCH ×3 (01:05→16:14)
[2020-02-21] MEDS: VANCOMYCIN 1.5 GM in NA CHLORIDE 0.9% 500 ML IVPB SCH ×2 (05:09→16:40)
[2020-02-21] MEDS: PANTOPRAZOLE 40 MG INJ IVP SCH (08:32)
[2020-02-21] MEDS: PROMETHAZINE INJ 25 MG/ML AMP IV PRN ×2 (09:50→15:01)
[2020-02-21] MEDS: MORPHINE 4 MG/ML SYR IV PRN (09:56)
--- NOTE | 2020-02-21 10:49 | P.PN ---
Subjective Date of Service: 02/21/20 Primary Care Provider: Dr. Lanza Chief Complaint: Perennial cellulitis Patient reports intermittent pain in the perineal area. No fever. Physical Examination - Vital Signs Temperature: 97.9 F Blood Pressure: 101/48 Pulse: 57 Respirations: 18 Pulse Ox (%): 96 - Physical Exam General: Alert, In no apparent distress HEENT: Mucous membr. moist/pink Respiratory: Clear to auscultation bilaterally, Normal air movement Cardiovascular: No edema, Regular rate/rhythm, Normal S1 S2 Gastrointestinal: Normal bowel sounds, Soft and benign, No tenderness Musculoskeletal: No swelling, No tenderness Integumentary: No rashes, No erythema Assessment And Plan - Current Problems (Diagnosis) (1) Cellulitis, perineum Current Visit: Yes Status: Acute (2) Superficial abscess of perineum Current Visit: Yes Status: Acute - Plan Continue current antibiotics. Patient seen by general surgeon-Dr. Carrion who recommends antibiotics for the next couple of days and then he will re-evaluate. Pain management with IV morphine and IV Toradol. Diet as tolerated.
[2020-02-21] MEDS: NA CHLORIDE 0.9% 1,000 ML IV SCH (11:36)
[2020-02-21] MEDS ORDERED: KETOROLAC 30 MG/ML INJ IV PRN (13:03)
[2020-02-21] MEDS: ENOXAPARIN 40 MG/0.4 ML SQ SCH (16:40)
[2020-02-21] MEDS: Levofloxacin500mg IV 500 MG/100 ML BAG IV SCH (17:00)
[2020-02-22] MEDS: METRONIDAZOLE 500mg IVPB 500 MG/100 ML BAG IV SCH ×3 (00:32→16:43)
[2020-02-22] MEDS: PROMETHAZINE INJ 25 MG/ML AMP IV PRN ×3 (00:34→16:46)
[2020-02-22] MEDS: NA CHLORIDE 0.9% 1,000 ML IV SCH ×3 (01:59→15:19)
[2020-02-22] MEDS: VANCOMYCIN 1.5 GM in NA CHLORIDE 0.9% 500 ML IVPB SCH ×2 (05:01→15:20)
[2020-02-22] MEDS: PANTOPRAZOLE 40 MG INJ IVP SCH (08:38)
[2020-02-22] MEDS: MORPHINE 4 MG/ML SYR IV PRN ×3 (09:12→22:07)
--- NOTE | 2020-02-22 10:45 | P.PN ---
Subjective Date of Service: 02/22/20 Primary Care Provider: Dr. Lanza Chief Complaint: Perennial cellulitis Patient complaining of more pain in the damian-anal area and quite frustrated with her pain. No fever. Physical Examination - Vital Signs Temperature: 98.1 F Blood Pressure: 108/55 Pulse: 57 Respirations: 16 Pulse Ox (%): 99 - Physical Exam General: Alert, In no apparent distress HEENT: Mucous membr. moist/pink Respiratory: Normal air movement Cardiovascular: No edema, Regular rate/rhythm Gastrointestinal: Non-distended Musculoskeletal: No swelling, No erythema Integumentary: No rashes Neurological: Other (Nonfocal) Assessment And Plan - Current Problems (Diagnosis) (1) Cellulitis, perineum Current Visit: Yes Status: Acute (2) Superficial abscess of perineum Current Visit: Yes Status: Acute - Plan Continue current antibiotics. Case discussed with Dr. Carrion who plans to examine the patient under anesthesia tomorrow. Pain management with IV morphine and IV Toradol. Diet as tolerated. NPO at midnight.
[2020-02-22] MEDS: Levofloxacin500mg IV 500 MG/100 ML BAG IV SCH (16:43)
[2020-02-22] MEDS: ENOXAPARIN 40 MG/0.4 ML SQ SCH (16:48)
[2020-02-22] MEDS ORDERED: MELATONIN 5 MG TABLET PO PRN (20:56)
[2020-02-22] MEDS: ONDANSETRON 4 MG/2 ML VIAL IV PRN (22:07)
[2020-02-23] MEDS: METRONIDAZOLE 500mg IVPB 500 MG/100 ML BAG IV SCH ×3 (01:02→10:45)
[2020-02-23] MEDS: VANCOMYCIN 1.5 GM in NA CHLORIDE 0.9% 500 ML IVPB SCH (04:35)
[2020-02-23] MEDS: NA CHLORIDE 0.9% 1,000 ML IV SCH ×2 (04:39→13:02)
[2020-02-23] MEDS: PANTOPRAZOLE 40 MG INJ IVP SCH (09:04)
[2020-02-23] MEDS ORDERED: Ringers Lactate 1,000 ML IV ONE (09:26)
[2020-02-23] MEDS ORDERED: FENTANYL CITR 100 MCG/2 ML ONE ×2 (09:41→10:41)
[2020-02-23] MEDS ORDERED: MIDAZOLAM HCL 2 MG/2 ML INJ ONE (10:41)
[2020-02-23] MEDS ORDERED: propofoL 200 MG/20 ML VIAL IV ONE (10:41)
[2020-02-23] MEDS ORDERED: LIDOCAINE 2% MPF 5 ML VIAL ONE (10:43)
[2020-02-23] MEDS ORDERED: ONDANSETRON 4 MG/2 ML VIAL ONE (10:43)
--- NOTE | 2020-02-23 11:39 | P.BOP ---
Preoperative diagnosis: Perianal abcess, hx of perianal fistulas Postoperative diagnosis: same, new fistula, perianal abscess, Int and Ext hemorrhoid Primary procedure: EUA, Anoscopy, rigid proctoscopy, I&D perianal abscess Estimated blood loss: <10cc Specimen: culture Findings: anterior complex fistula, perianal abscess, int and ext hemorrhoids Anesthesia: General Complications: None Transferred to: Recovery Room Condition: Good
[2020-02-23] MEDS ORDERED: MEPERIDINE HCL 25 MG/ML SYR ONE (11:43)
--- NOTE | 2020-02-23 11:47 | P.PN ---
Subjective Date of Service: 02/23/20 Primary Care Provider: Dr. Lanza Chief Complaint: Perennial cellulitis No major changes from yesterday Patient underwent examination under anesthesia this morning. I and D of prerieanal abcess done. Other postop diagnosis: Anterior complex fistula. Hemorrhoid. Physical Examination - Vital Signs Temperature: 97.5 F Blood Pressure: 99/53 Pulse: 57 Respirations: 17 Pulse Ox (%): 99 - Physical Exam General: Alert, In no apparent distress Cardiovascular: Regular rate/rhythm Gastrointestinal: Non-distended Musculoskeletal: No swelling, No erythema Neurological: Other (Nonfocal) Assessment And Plan - Current Problems (Diagnosis) (1) Cellulitis, perineum Current Visit: Yes Status: Acute (2) Superficial abscess of perineum Current Visit: Yes Status: Acute - Plan Continue cefepime and Flagyl. Discontinue vancomycin. Follow I and D culture result and adjust antibiotics. Dr. Carrion input appreciated. Pain management with IV morphine and IV Toradol. Diet as tolerated.
[2020-02-23] MEDS: HYDROMORPHONE HCL 1 MG/ML INJ ONE ×6 (11:53→12:19)
[2020-02-23] MEDS ORDERED: PROMETHAZINE INJ 25 MG/ML AMP ONE (11:59)
[2020-02-23] MEDS ORDERED: HYDROMORPHONE HCL 1 MG/ML INJ ONE (11:59)
[2020-02-23] MEDS: FENTANYL CITR 100 MCG/2 ML ONE ×3 (12:12→12:21)
[2020-02-23 12:25] VITALS: O2SAT 99
--- NOTE | 2020-02-23 12:29 | OP ---
Date of Procedure: 02/23/2020 Surgeon: Juan Carrion MD Preoperative Diagnosis: Perianal abscess, history of an anal fistula. Postoperative Diagnosis: Perianal abscess, history of an anal fistula plus new anterior fistula, perianal abscess, internal an d external hemorrhoids. Procedure: Examination under anesthesia, anoscopy, rigid proctoscopy, incision and drainage of peria nal abscess. Estimated Blood Loss: Less than 10 mL. Specimen: Culture. Findings: Patient has anterior complex fistula, perianal abscess, internal and external hemorrhoids. Anesthesia: General plus local. Indication: This is a case of a 24-year-old patient who comes to us with multiple problems. 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 She was advised to see GI doctor to rule out inflammato ry bowel disease, specifically Crohn disease, although she explained to do so and at 1 point even rosanna led, due to financial reasons, she has not been able to have the complete evaluation including the co lonoscopy. She came few days ago once again with a perianal cellulitis. At that moment, we could no t see the fistula. CAT scan did not show the abscess and started on IV antibiotics, but it got worse last night. So we offered her examination under anesthesia, anoscopy, proctoscopy, I and D of the p erianal abscess. She understands that we may not find a fistula. We may not be able to take care of a fistula at this time due to the inflammation and infection over that area, difficult to find exact ly the part of it, and we do not want to damage her sphincter, which is 1 of the reasons, we explaine d the benefits, alternatives, and risks, which include, but not limited to infection, bleeding, damag e to adjacent structures, anesthesia complication, anal stricture, anal incontinence, bowel perforati on, OK, and even . She also understands this may not relieve her symptoms. She might need more than one surgical intervention and if we find a fistula, she will have to see proper care. We chandra sted to her previously colorectal surgeons, but she has not been able to get there. Procedure In Detail: The patient was brought to the operating room, placed in supine position. Anes thesia was done without complication. The patient was placed in lithotomy position with proper prote ction. Perianal area was prepped and draped in a sterile fashion. Rectal examination was done follo bela by rigid proctoscopy, limited by the amount of stool present in that area up to about 10 cm. We noted the patient to have a perianal fistula anteriorly, and when we proved that area, there is a com plex fistula involving the center. So we probed the fistula, it is present. Then have an abscess to the right of that and abscess does not lead us to the delineation of the area properly. So, we proc eeded to drain the abscess with the counter incision and clean the hernia tract of the fistula but to remove this completely and to open it, we were afraid that we might damage the sphincter. For that reason, we are going to drain the abscess, let the swelling goes done in perfection and then sent her to colorectal surgeon to address the complex fistula. The abscess was drained. Culture was obtaine d. The irrigation was done and the area was packed with iodoform quarter of an inch. The patient to lerated the procedure well. Patient was sent to Recovery in stable condition. If she goes home today, if she has no primary doctor or tomorrow. She was advised once again to maral ow with Dr. Pacheco, colorectal surgeon or any colorectal surgeon of her choice and remove the packing t omorrow and then keep the dressings on top. Continue her antibiotics by mouth and see a GI doctor al so to rule out inflammatory bowel disease as 1 of the causes of multiple recurrence of fistulas. MATTI/MERCEDES Voice ID: [id number] Report ID: [id number]
[2020-02-23 15:52] VITALS: BP 105/54; TEMP 98
[2020-02-23] MEDS: ENOXAPARIN 40 MG/0.4 ML SQ SCH (16:02)
[2020-02-23] MEDS: Levofloxacin500mg IV 500 MG/100 ML BAG IV SCH (16:02)
--- NOTE | 2020-02-23 16:18 | P.DS ---
Admission Date: 02/19/20 Discharge Date: 02/23/20 Primary Care Provider: Dr. Lanza Disposition: ROUTINE DISCHARGE Discharge Condition: GOOD Reason for Admission: Perennial cellulitis - Problems (1) Cellulitis, perineum Current Visit: Yes Status: Acute (2) Anal fistula Current Visit: Yes Status: Acute (3) Perianal abscess Current Visit: Yes Status: Acute Brief History of Present Illness: 24 year old woman with a history recurrent any fistula and abscesses presented to the emergency department with a complaint of pain and swelling in in the perineal area. Patient saw Dr. Carrion who examined her earlier in the office and prescribed antibiotics. She was supposed to follow with a director of surgery to evaluate her for any inflammatory bowel disease given her multiple fistulas but she has been unable to do that. Patient was noted to have an induration and a small opening with purulent discharge in the perianal area when she came to the ED. She was subsequently admitted for further management of perianal abscess. Hospital Course: Patient admitted to the medical floor and treated with broad-spectrum antibiotics including vancomycin, Levaquin and Flagyl. She was evaluated by general surgery-Dr. Carrion. She was kept on IV antibiotics over the weekend and had examination under anesthesia with anoscopy and proctoscopy. I and D of perianal abscess was performed. Patient also noted to have a fistula. Patient deemed stable for discharge per Dr. Carrion on oral antibiotics. She will be prescribed oral ciprofloxacin and Flagyl. Dr. Carrion has given her wound care instructions. He recommend patient to follow up with him within 1 week. Vital Signs/Physical Exam: Temp Pulse Resp BP Pulse Ox 98.0 F 69 17 105/54 L 98 02/23/20 16:00 02/23/20 16:00 02/23/20 16:00 02/23/20 16:00 02/23/20 16:00 General: Alert, In no apparent distress Cardiovascular: No edema, Regular rate/rhythm, Normal S1 S2 Musculoskeletal: No swelling, No erythema Integumentary: No rashes Laboratory Data at Discharge: WBC 9.4 K/uL (4.3-10.9) D 02/20/20 04:17 Hgb 12.1 g/dL (12.0-15.0) 02/20/20 04:17 Hct 34.9 % (36.0-45.0) L 02/20/20 04:17 Plt Count 197 K/uL (152-406) D 02/20/20 04:17 Sodium 139 mmol/L (136-145) 02/20/20 04:17 Potassium 4.1 mmol/L (3.5-5.1) 02/20/20 04:17 BUN 12 mg/dL (7-18) 02/20/20 04:17 Creatinine 0.88 mg/dL (0.55-1.3) 02/21/20 15:12 Glucose 87 mg/dL (74-106) 02/20/20 04:17 Total Bilirubin 0.4 mg/dL (0.2-1.0) 02/19/20 14:58 AST 18 U/L (15-37) 02/19/20 14:58 ALT 31 U/L (12-78) 02/19/20 14:58 Alkaline Phosphatase 74 U/L (45-117) 02/19/20 14:58 Lipase 67 U/L (73-393) L 02/19/20 14:58 Home Medications: Ciprofloxacin HCl [Cipro 500 MG Tablet] 500 mg PO BID #20 tab 02/23/20 Codeine/APAP [Tylenol W/Codeine #3 tab] 1 tab PO Q6HP PRN #30 tab 02/23/20 Ibuprofen [Advil] 400 mg PO TID PRN #30 tablet 02/23/20 metroNIDAZOLE [Flagyl] 500 mg PO Q8H #30 tablet 02/23/20 New Medications: Codeine/APAP [Tylenol W/Codeine #3 tab] 1 tab PO Q6HP PRN #30 tab PRN Reason: Pain Ibuprofen [Advil] 400 mg PO TID PRN #30 tablet PRN Reason: Pain Ciprofloxacin HCl [Cipro 500 MG Tablet] 500 mg PO BID #20 tab metroNIDAZOLE [Flagyl] 500 mg PO Q8H #30 tablet Patient Discharge Instructions: Nugauze 04/05" to perianal area daily Diet: AHA Activity: No lifting more than 10 lbs Followup: German Mace MD [Primary Care Provider] - Juan Carrion MD [ACTIVE - CAN ADMIT] - 1 Week Time spent managing pt's care (in minutes): 35
--- NOTE | 2020-04-07 09:31 | P.CNS ---
Date of Consult: 02/20/20 Primary Care Provider: Dr. Lanza Chief Complaint: Perineal/parianal tenderness, cellulitis possible abscess History of Present Illness: case of 24 y/o female with h/o of perianal fistulas and recurrent perianal abscess with a new area of tenderness and induration over perineum/parianal area. Pt pain was enough for her to look at ER for option since she failed outpt treatment. No trauma. Allergies Penicillins Allergy (Verified 02/20/20 02:36) Unknown sulfamethoxazole [From Bactrim] Allergy (Verified 02/20/20 02:36) Unknown trimethoprim [From Bactrim] Allergy (Verified 02/20/20 02:36) Unknown Home Medications: Ciprofloxacin HCl [Cipro 500 MG Tablet] 500 mg PO BID #20 tab 02/23/20 Codeine/APAP [Tylenol W/Codeine #3 tab] 1 tab PO Q6HP PRN #30 tab 02/23/20 Ibuprofen [Advil] 400 mg PO TID PRN #30 tablet 02/23/20 metroNIDAZOLE [Flagyl] 500 mg PO Q8H #30 tablet 02/23/20 - Past Medical/Surgical History Diabetic: No -: Fistula surgery 3x -: 3 adenoid surgery -: tonsillectomy - Family History Father Medical History: Heart disease, Hypertension Mother Medical History: Hypertension, Seizures, Other (see notes) - Social History Smoking Status: Current every day smoker Alcohol use: No CD- Drugs: No Caffeine use: Yes Place of Residence: Home Review of Systems General: Weakness, Malaise Respiratory: Shortness of Breath (no) Cardiovascular: Chest Pain (no), Palpitations (no) Gastrointestinal: As per HPI Genitourinary: Dysuria (no), Frequency (no), Urgency (no) Integumentary: As per HPI Lymphatics: Unremarkable Physical Examination Temp Pulse Resp BP Pulse Ox 98.0 F 69 17 105/54 L 98 02/23/20 16:00 02/23/20 16:00 02/23/20 16:00 02/23/20 16:00 02/23/20 16:00 General: Alert, Oriented x3, Cooperative HEENT: PERRLA, EOMI Neck: Supple Respiratory: Clear to auscultation bilaterally Cardiovascular: No edema, Normal pulses Gastrointestinal: Soft and benign Musculoskeletal: No erythema, No tenderness, No warmth Integumentary: No rashes, No breakdown, Erythema (perineal/perianal), Warmth, Cyanosis Rectal: Induration, Tenderness (perianal area. no fluctuancy) Conclusions/Impression: IV abx EUA, Anoscopy, rigid procto possible perineal/perianal abscess drainage fully explained including but but not limited to infection, bleeding, damage to adjacent structures, and stricture, anal incontinence, recurrence VT even . Pt advised a consult with colorectal surgery and GI ( for IBD) when possible
== END 2020-02-23 17:13 | disposition home or self-care (01) | DRG 581 ==
LOC: ER 13:29 → ERHOLD 18:45 → 4TH 20:31 → 2ND 02-23 10:09
PROVIDERS: ADMIT Internal Medicine; ATTEND Internal Medicine
PROC: 0D9Q8ZZ Drainage of Anus, Via Natural or Artificial Opening Endoscopic (ICD-10-PCS; principal; 2020-02-23 11:45)
DX: L03.315 Cellulitis of perineum (principal); L02.215 Cutaneous abscess of perineum; K60.3 Anal fistula; K64.8 Other hemorrhoids; K64.4 Residual hemorrhoidal skin tags; Z88.1 Allergy status to other antibiotic agents; Z87.891 Personal history of nicotine dependence; Z79.891 Long term (current) use of opiate analgesic; Z79.899 Other long term (current) drug therapy; Z20.828 Contact with and (suspected) exposure to other viral communicable diseases
CPT/HCPCS: 36415; 74177; 80048; 80076; 80202; 81003; 81025; 82565; 83690; 85025; 87070; 87075; 87205; 96361; 96365; 96366; 96367; 96375; 99285; C9113; J1170; J1650; J2175; J2250; J2405; J2550; J2704; J3010; J3370; J7030; J7040; J7050; J7120; Q9967; U0002

== ENCOUNTER 2021-06-10 08:59 | Emergency (ER) | payer BC, OTHER ==
--- OUTSIDE RECORDS SUMMARY | 2021-06-10 09:04 | XMS REPORT | Continuity of Care Document ---
:1995 Author Organization [facility] t Address [address] [place] [address] Care Team Providers Name Role Phone Shankia HUGHES Primary Care Physician Unavailable Omar SAAB Attending Clinician Unavailable Clay LONGORIA Attending Clinician Unavailable GABRIELLE RAYMOND Attending Clinician Unavailable JUANITO PENNY Attending Clinician Unavailable Von GALEANA, R Attending Clinician Kranthi Kohli DO Attending Clinician Omar Saab MD Attending Clinician Doctor Unassigned, Name Attending Clinician Unavailable Only, Test Attending Clinician Unavailable Pool, Resident Attending Clinician Unavailable Christianne GALEANA Attending Clinician Eliu Peralta MD Attending Clinician Juan GALEANA Attending Clinician CHRISTIANNE Attending Clinician Unavailable Res-Colpo/Leep Attending Clinician Unavailable Paula MANCIA S Attending Clinician Omar SAAB Admitting Clinician Unavailable Omar Saab MD Admitting Clinician Payers Payer Name Policy Type Policy Number Effective Date Expiration Date [facility] [id number] 2019 00:00:00 Advance Directives Directive Decision Effective Termination Comments Source Date Date Healthcare Agents on N/A Univ ersity FileNameRelationshipHealthcare [facility] Agent Medical RelationshipCommunicationM[facility] [phone] (Mobile) Problems Condition Condition Condition Status Onset Resolution Last Treating Co mments Source Name Details Category Date Date Treatment Clinician Date Encounter Encounter Disease Active Uni vers for for 8-04 ity of surveillan surveillan [place] ce of 00 Medical other other Branch contracept contracept madonna madonna 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) 00:00: [place] infection infection 00 [facility] Branch Class 1 Class 1 Disease Active Univers obesity obesity 804 ity of due to due to 00:00: [place] excess excess 00 Medical calories calories Branch with body with body mass index mass index (BMI) of (BMI) of 34.0 to 34.0 to 34.9 in 34.9 in adult, adult, unspecifie unspecifie d whether d whether serious serious comorbidit comorbidit y present y present History of History of Disease Active U elizabeth anxiety anxiety 804 ity of 00:00: [place] 00 Medical Branch Abnormal Abnormal Disease Active 2018-04 Overview: Un ana maría glandular glandular 04-22 Formattin i ty of Papanicola Papanicola 00:00: g of this [place] ou smear ou smear 00 note Medica l of cervix of cervix might be Br anch different from the original. 9- colpo done. No lesions seen Papanicola Papanicola Disease Active 2018-04 Overview : Univers ou smear ou smear 04-22 ity of of cervix of cervix 00:00: 9- colpo [place] with with 00 done. No Medical atypical atypical lesions Branc h squamous squamous seen cells cells cannot cannot exclude exclude high grade high grade squamous squamous intraepith intraepith elial elial lesion lesion (ASC-H) (ASC-H) Screening Screening Disease Active 2018-04 Uni vers examinatio examinatio 0-17 it y of n for STD n for STD [place] ([place]ually (sexually 00 [facility] transmitte transmitte Br anch d disease) d disease) IUD IUD Disease Active 2018-04 Univers (intrauter (intrauter 0-17 it y of ine ine 00:00: [place] device) in device) in [address] Branch BMI BMI Disease Active 2018-04 Univers 34.0-34.9, 34.0-34.9, 0-17 it y of adult adult 00:00: [place] 00 Medical Branch Other Other Disease Active 2018-04 Univers depression depression 0-17 it y of 00:00: Medical Branch Cyst of Cyst of Disease Active Univers Bartholin' Bartholin' 808 it y of s gland s gland 00:00: [place] 00 Medical Branch Allergies, Adverse Reactions, Alerts Allergy Allergy Status Severity Reaction(s) Onset Inactive Treating Comm ents Source Name Type Date Date Clinician IODINE DRUG Active Rash Univers INGREDI 7- ity of 00:00: [place] 00 Medical Branch Iodine Propensi Active Rash Univers ty to 7 ity of adverse 00:00: [place] reaction 00 Medical s Branch SULFA Drug Active Other-Cmnt Univer s (SULFONA Class 4-19 ity of MIDE 00:00: [place] ANTIBIOT 00 Medical ICS) Branch Sulfa Propensi Active Other - See Reports Un ana maría (Sulfona ty to comments 4-19 it only ity o f mide adverse 00:00: makes sx [place] Antibiot reaction 00 worse, Medica l ics) s does not Branch relieve sx. PENICILL Drug Active Anaphylaxis 2016-04 Uni vers INS Class 2-28 ity of 00:00: [place] 00 Medical Branch Penicill Propensi Active Anaphylaxis 2016-04 U nivers ins ty to 2-28 ity of adverse 00:00: [place] reaction 00 Medical s Branch Social History Social Habit Start Date Stop Date Quantity Comments Source Exposure to Not sure [facility] SARS-CoV-2 (event) [facility] Tobacco use and 2020-11-03 2020-11-03 Never used Universit y of exposure 00:00:00 00:00:00 [facility] Cigarettes smoked 2020-11-03 2020-11-03 Univers ity of current (pack per 00:00:00 00:00:00 [place] ) - Reported Branch Alcohol intake 2020-11-03 2020-11-03 Ex-drinker University 00:00:00 00:00:00 (finding) [facility] History of tobacco 2010 2018-04-02 Cigarette Smoker University use 00:00:00 00:00:00 [facility] Alcohol Comment 2017-07-19 2017-07-19 socially Universit y of 00:00:00 00:00:00 [facility] Sex [birth year] At [birth year] Universit y of 00:00:00 00:00:00 [facility] Smoking Status Start Date Stop Date Source Former smoker 2020-11-03 00:00:00 2020-11-03 00:00:00 Universi ty of [facility] Medications Ordered Filled Start Stop Current Ordering Indication Dosage Frequency Signature Comments Components Source Medication Medication Date Date Medication? Clinician (SIG) Name Name doxycycline Yes 50mg Take 50 mg Univers 50 mg 8-04 by mouth ity of capsule 16:17: every 12 [place] [address] (twelve) Medical hours. Branch pantoprazol Yes Take by Un ana maría e sodium 8-04 mouth. ity of (PANTOPRAZO 16:17: [place] LE ORAL) [address] [place] [address] Branch linaCLOtide Yes Take by Un ana maría (LINZESS) 8-04 mouth. ity of 145 mcg 16:17: [address] FLUoxetine Yes 10mg Take 10 mg U nivers (PROZAC) 10 8-04 by mouth ity of mg capsule 16:17: daily. [address] doxycycline Yes 50mg Take 50 mg Univers 50 mg 8-04 by mouth ity of capsule 16:17: every 12 [place] [address] (twelve) Medical hours. Branch pantoprazol Yes Take by Un ana maría e sodium 8-04 mouth. ity of (PANTOPRAZO 16:17: [place] LE ORAL) Medical Branch linaCLOtide Yes Take by Un ana maría (LINZESS) 8-04 mouth. ity of 145 mcg 16:17: [address] FLUoxetine Yes 10mg Take 10 mg U nivers (PROZAC) 10 8-04 by mouth ity of mg capsule 16:17: daily. [address] doxycycline Yes 50mg Take 50 mg Univers 50 mg 2-26 by mouth ity of capsule 17:51: every 12 [place] [address] (twelve) Medical hours. Branch pantoprazol Yes Take by Un ana maría e sodium 05-28 mouth. ity of (PANTOPRAZO 17:51: [place] LE ORAL) Medical Branch linaCLOtide Yes Take by Un ana maría (LINZESS) 05-28 mouth. ity of 145 mcg 17:51: [place] capsule Medical Branch doxycycline Yes 50mg Take 50 mg Univers 50 mg 05-28 by mouth ity of capsule 17:51: every 12 [place] [address] (twelve) Medical hours. Branch pantoprazol Yes Take by Un ana maría e sodium 05-28 mouth. ity of (PANTOPRAZO 17:51: [place] LE ORAL) Medical Branch linaCLOtide Yes Take by Un ana maría (LINZESS) 05-28 mouth. ity of 145 mcg 17:51: [place] capsule Medical Branch HYDROcodone Yes 1{tbl} 1 tablet, Univers -acetaminop 05-28 Oral, PRN, it y of hen (NORCO 16:20: 1 dose, [place] 5) 5-325 mg 21 Starting Medi rosanna tablet 1 Fri Branch tablet 05/28/20 at 1020, Until Discontinu ed, Routine, Pain (scale 7-10), DSU Recovery ibuprofen Yes 800mg 800 mg, Univ ers (IBU) 05-28 Oral, PRN, ity of tablet 800 16:20: 1 dose, [place] mg 18 Starting Medical Fri Branch 05/28/20 at 1020, Until Discontinu ed, Routine, Pain (scale 4-6), DSU Recovery proMETHazin Yes 25mg 25 mg, IV U nivers e 05-28 Piggyback, ity of (PHENERGAN) 15:55: Q4HPRN, Ced as 25 mg in 13 Starting Medical NaCl 0.9% Fri Branch (NS) 50 mL 05/28/20 at IV 0955, piggyback Until Discontinu ed, Routine, Nausea and Vomiting (N/V) traMADoL Yes 50mg 50 mg, Univers (ULTRAM) 05-28 Oral, PRN, ity o f tablet 50 15:47: 1 dose, [place] mg 39 Starting Medical Fri Branch 05/28/20 at 0947, Until Discontinu ed, Routine, Pain (scale 4-6), DSU Recovery traMADoL Yes 50mg 50 mg, Univers (ULTRAM) 05-28 Oral, ity of tablet 50 15:39: Q6HPRN, [place] mg 51 Starting Medical Fri Branch 05/28/20 at 0939, Until Discontinu ed, Routine, Pain (scale 1-3), PACU HYDROmorpho Yes .2mg 0.2 mg, Uni vers ne 05-28 Slow IV ity of (DILAUDID) 15:39: Push, [place] injection 51 Q5MIN PRN, Medi rosanna 0.2 mg 10 doses, Branch Starting 05/28/20 at 0939, Until Discontinu ed, Routine, Pain (scale 7-10), PACU
Us e approved by (Faculty): PACU USE -ANESTHESI A SERVICE-HY DROMORPHON E INJECTIONS FENTanyl PF No 25ug 25 mcg, Un ana maría (SUBLIMAZE 05-28 02-26 Slow IV ity o f (PF)) 15:39: 16:27 Push, [place] injection 51 :00 Q5MIN PRN, Medi rosanna 25 mcg 4 doses, Branch Starting 05/28/20 at 0939, Until Discontinu ed, Routine, Pain (scale 4-6), PACU traMADoL 50 2020-0 2020- No [id number] 50mg Take 1 Uni vers mg tablet 05-28 03-06 tablet by ity of 00:00: 05:59 mouth [place] 00 :00 every 6 Medical (six) Branch hours as needed for Pain (scale 4-6) or Pain (scale 7-10) for up to 7 days. Indication s: acute pain doxycycline Yes 50mg Take 50 mg Univers 50 mg 2-19 by mouth ity of capsule 15:46: every 12 [place] 53 (twelve) Medical hours. Branch pantoprazol Yes Take by Un ana maría e sodium 2-19 mouth. ity of (PANTOPRAZO 15:46: [place] LE ORAL) 53 Medical Branch linaCLOtide Yes Take by Un ana maría (LINZESS) 2-19 mouth. ity of 145 mcg 15:46: [place] capsule 53 Medical Branch doxycycline Yes 50mg Take 50 mg Univers 50 mg 2-19 by mouth ity of capsule 15:46: every 12 [place] [address] (twelve) Medical hours. Branch pantoprazol Yes Take by Un ana maría e sodium 2-19 mouth. ity of (PANTOPRAZO 15:46: [place] LE ORAL) 53 Medical Branch linaCLOtide Yes Take by Un ana maría (LINZESS) 2-19 mouth. ity of 145 mcg 15:46: [place] capsule 53 Medical Branch doxycycline Yes 50mg Take 50 mg Univers 50 mg 2-19 by mouth ity of capsule 15:46: every 12 [place] [address] (twelve) Medical hours. Branch pantoprazol Yes Take by Un ana maría e sodium 2-19 mouth. ity of (PANTOPRAZO 15:46: [place] LE ORAL) 53 Medical Branch linaCLOtide Yes Take by Un ana maría (LINZESS) 2-19 mouth. ity of 145 mcg 15:46: [place] capsule 53 Medical Branch copper 0 2020- No [id number] 1{IUD} Uni vers (PARAGARD T 10-28 ity of 380A) IUD 1 21:30: 20:00 [place] Intra 00 :00 Medical Uterine Branch Device copper 0 2020- No [id number] 1{IUD} 1 Intra Univers (PARAGARD T 10-28 Uterine ity of 380A) IUD 1 21:30: 20:00 [place], [place] Intra 00 :00 Intrauteri Medical Uterine ne, ONCE, Branch Device 1 dose, Sun10/29/19 at 1630, Routine copper 2020- No [id number] 1{IUD} Uni vers (PARAGARD T 10-28 ity of 380A) IUD 1 21:30: 20:00 [place] Intra 00 :00 Medical Uterine Branch Device copper 0 2020- No [id number] 1{IUD} 1 Intra Univers (PARAGARD T 10-28 Uterine ity of 380A) IUD 1 21:30: 20:00 [place], [place] Intra 00 :00 Intrauteri Medical Uterine ne, ONCE, Branch Device 1 dose, Sun10/29/19 at 1630, Routine linaCLOtide 2018-04 Yes Take by Un ana maría (LINZESS) 1-21 mouth. ity of 145 mcg 19:11: [place] capsule 21 Medical Branch linaCLOtide 2018- Yes Take by Un ana maría (LINZESS) 1-21 mouth. ity of 145 mcg 19:11: [place] capsule 21 Medical Branch linaCLOtide 2018- Yes Take by Un ana maría (LINZESS) 1-21 mouth. ity of 145 mcg 19:11: [place] capsule 21 Medical Branch linaCLOtide 2018- Yes Take by Un ana maría (LINZESS) 1-21 mouth. ity of 145 mcg 19:11: [place] capsule 21 Medical Branch linaCLOtide 2018- Yes Take by Un ana maría (LINZESS) 1-21 mouth. ity of 145 mcg 19:11: [place] capsule 21 Medical Branch linaCLOtide 2018- Yes Take by Un ana maría (LINZESS) 1-21 mouth. ity of 145 mcg 19:11: [place] capsule 21 Medical Branch linaCLOtide 2018- Yes Take by Un ana maría (LINZESS) 1-21 mouth. ity of 145 mcg 19:11: [place] capsule 21 Medical Branch linaCLOtide 2018- Yes Take by Un ana maría (LINZESS) 1-21 mouth. ity of 145 mcg 19:11: [place] capsule 21 Medical Branch linaCLOtide 2018- Yes Take by Un ana maría (LINZESS) 1-21 mouth. ity of 145 mcg 19:11: [place] capsule 21 Medical Branch linaCLOtide 2018- Yes Take by Un ana maría (LINZESS) 1-21 mouth. ity of 145 mcg 19:11: [place] capsule 21 Medical Branch linaCLOtide 2018- Yes Take by Un ana maría (LINZESS) 1-21 mouth. ity of 145 mcg 19:11: [place] capsule 21 Medical Branch linaCLOtide 2018- Yes Take by Un ana maría (LINZESS) 1-21 mouth. ity of 145 mcg 19:11: [place] capsule 21 Medical Branch linaCLOtide 2018- Yes Take by Un ana maría (LINZESS) 1-21 mouth. ity of 145 mcg 19:11: [place] capsule 21 Medical Branch linaCLOtide 2018- Yes Take by Un ana maría (LINZESS) 1-21 mouth. ity of 145 mcg 19:11: [place] capsule 21 Medical Branch linaCLOtide 2018-04 Yes Take by Un ana maría (LINZESS) 1-21 mouth. ity of 145 mcg 19:11: [place] capsule 21 Medical Branch linaCLOtide 2018-04 Yes Take by Un ana maría (LINZESS) 1-21 mouth. ity of 145 mcg 19:11: [place] capsule 21 Medical Branch linaCLOtide 2018-04 Yes Take by Un ana maría (LINZESS) 1-21 mouth. ity of 145 mcg 19:11: [place] capsule 21 Medical Branch linaCLOtide 2018-04 Yes Take by Un ana maría (LINZESS) 1-21 mouth. ity of 145 mcg 19:11: [place] capsule 21 Medical Branch multivitami 2018- 2020- No [id number] 1{tbl} Take 1 Univers n tablet 1-21 11-21 tablet by ity o f 00:00: 05:59 mouth [place] 00 :00 daily. Medical Branch multivitami 2018- 2020- No [id number] 1{tbl} Take 1 Univers n tablet 1-21 11-21 tablet by ity o f 00:00: 05:59 mouth [place] 00 :00 daily. Medical Branch multivitami 2018- 2020- No [id number] 1{tbl} Take 1 Univers n tablet 1-21 11-21 tablet by ity o f 00:00: 05:59 mouth [place] 00 :00 daily. Medical Branch multivitami 2018- 2020- No [id number] 1{tbl} Take 1 Univers n tablet 1-21 11-21 tablet by ity o f 00:00: 05:59 mouth [place] 00 :00 daily. Medical Branch multivitami 2018- 2020- No [id number] 1{tbl} Take 1 Univers n tablet 1-21 11-21 tablet by ity o f 00:00: 05:59 mouth [place] 00 :00 daily. Medical Branch multivitami 2018- 2020- No [id number] 1{tbl} Take 1 Univers n tablet 1-21 11-21 tablet by ity o f 00:00: 05:59 mouth [place] 00 :00 daily. Medical Branch multivitami 2018- 2020- No [id number] 1{tbl} Take 1 Univers n tablet 1-21 11-21 tablet by ity o f 00:00: 05:59 mouth [place] 00 :00 daily. Medical Branch multivitami 2018-04 2020- No [id number] 1{tbl} Take 1 Univers n tablet 1-21 11-21 tablet by ity o f 00:00: 05:59 mouth [place] 00 :00 daily. Medical Branch multivitami 2018-04 2020- No [id number] 1{tbl} Take 1 Univers n tablet 1-21 11-21 tablet by ity o f 00:00: 05:59 mouth [place] 00 :00 daily. Medical Branch multivitami 2018-04- No [id number] 1{tbl} Take 1 Univers n tablet 1-21 11-21 tablet by ity o f 00:00: 05:59 mouth [place] 00 :00 daily. Medical Branch doxycycline 2018-04 Yes 50mg Take 50 mg Univers 50 mg 0-17 by mouth ity of capsule 13:48: every 12 [place] (twelve) Medical hours. Branch pantoprazol 2018-04 Yes Take by Un ana maría e sodium 0-17 mouth. ity of (PANTOPRAZO 13:48: [place] LE ORAL) 39 Medical Branch doxycycline 2018-04 Yes 50mg Take 50 mg Univers 50 mg 0-17 by mouth ity of capsule 13:48: every 12 [place] 39 (twelve) Medical hours. Branch pantoprazol 2018-04 Yes Take by Un ana maría e sodium 0-17 mouth. ity of (PANTOPRAZO 13:48: [place] LE ORAL) 39 Medical Branch doxycycline 2018-04 Yes 50mg Take 50 mg Univers 50 mg 0-17 by mouth ity of capsule 13:48: every 12 [place] (twelve) Medical hours. Branch pantoprazol 2018-04 Yes Take by Un ana maría e sodium 0-17 mouth. ity of (PANTOPRAZO 13:48: [place] LE ORAL) 39 Medical Branch doxycycline 2018-04 Yes 50mg Take 50 mg Univers 50 mg 0-17 by mouth ity of capsule 13:48: every 12 [place] 39 (twelve) Medical hours. Branch pantoprazol 2018-04 Yes Take by Un ana maría e sodium 0-17 mouth. ity of (PANTOPRAZO 13:48: [place] LE ORAL) 39 Medical Branch doxycycline 2018-04 Yes 50mg Take 50 mg Univers 50 mg 0-17 by mouth ity of capsule 13:48: every 12 [place] 39 (twelve) Medical hours. Branch pantoprazol 2018-04 Yes Take by Un ana maría e sodium 0-17 mouth. ity of (PANTOPRAZO 13:48: [place] LE ORAL) 39 Medical Branch doxycycline 2018-04 Yes 50mg Take 50 mg Univers 50 mg 0-17 by mouth ity of capsule 13:48: every 12 [place] [address] (twelve) Medical hours. Branch pantoprazol 2018-04 Yes Take by Un ana maría e sodium 0-17 mouth. ity of (PANTOPRAZO 13:48: [place] LE ORAL) 39 Medical Branch doxycycline 2018-04 Yes 50mg Take 50 mg Univers 50 mg 0-17 by mouth ity of capsule 13:48: every 12 [place] [address] (twelve) Medical hours. Branch pantoprazol 2018-04 Yes Take by Un ana maría e sodium 0-17 mouth. ity of (PANTOPRAZO 13:48: [place] LE ORAL) 39 Medical Branch doxycycline 2018-04 Yes 50mg Take 50 mg Univers 50 mg 0-17 by mouth ity of capsule 13:48: every 12 [place] [address] (twelve) Medical hours. Branch pantoprazol 2018-04 Yes Take by Un ana maría e sodium 0-17 mouth. ity of (PANTOPRAZO 13:48: [place] LE ORAL) 39 Medical Branch doxycycline 2018-04 Yes 50mg Take 50 mg Univers 50 mg 0-17 by mouth ity of capsule 13:48: every 12 [place] [address] (twelve) Medical hours. Branch pantoprazol 2018-04 Yes Take by Un ana maría e sodium 0-17 mouth. ity of (PANTOPRAZO 13:48: [place] LE ORAL) 39 Medical Branch doxycycline 2018-04 Yes 50mg Take 50 mg Univers 50 mg 0-17 by mouth ity of capsule 13:48: every 12 [place] [address] (twelve) Medical hours. Branch pantoprazol 2018-04 Yes Take by Un ana maría e sodium 0-17 mouth. ity of (PANTOPRAZO 13:48: [place] LE ORAL) 39 Medical Branch doxycycline 2018-04 Yes 50mg Take 50 mg Univers 50 mg 0-17 by mouth ity of capsule 13:48: every 12 [place] [address] (twelve) Medical hours. Branch pantoprazol 2018-04 Yes Take by Un ana maría e sodium 0-17 mouth. ity of (PANTOPRAZO 13:48: [place] LE ORAL) 39 Medical Branch doxycycline 2018-04 Yes 50mg Take 50 mg Univers 50 mg 0-17 by mouth ity of capsule 13:48: every 12 [place] [address] (twelve) Medical hours. Branch pantoprazol 2018-04 Yes Take by Un ana maría e sodium 0-17 mouth. ity of (PANTOPRAZO 13:48: [place] LE ORAL) 39 Medical Branch doxycycline 2018-04 Yes 50mg Take 50 mg Univers 50 mg 0-17 by mouth ity of capsule 13:48: every 12 [place] [address] (twelve) Medical hours. Branch pantoprazol 2018-04 Yes Take by Un ana maría e sodium 0-17 mouth. ity of (PANTOPRAZO 13:48: [place] LE ORAL) 39 Medical Branch doxycycline 2018-04 Yes 50mg Take 50 mg Univers 50 mg 0-17 by mouth ity of capsule 13:48: every 12 [place] [address] (twelve) Medical hours. Branch pantoprazol 2018-04 Yes Take by Un ana maría e sodium 0-17 mouth. ity of (PANTOPRAZO 13:48: [place] LE ORAL) 39 Medical Branch doxycycline 2018-04 Yes 50mg Take 50 mg Univers 50 mg 0-17 by mouth ity of capsule 13:48: every 12 [place] [address] (twelve) Medical hours. Branch pantoprazol 2018-04 Yes Take by Un ana maría e sodium 0-17 mouth. ity of (PANTOPRAZO 13:48: [place] LE ORAL) 39 Medical Branch doxycycline 2018-04 Yes 50mg Take 50 mg Univers 50 mg 0-17 by mouth ity of capsule 13:48: every 12 [place] [address] (twelve) Medical hours. Branch pantoprazol 2018-04 Yes Take by Un ana maría e sodium 0-17 mouth. ity of (PANTOPRAZO 13:48: [place] LE ORAL) 39 Medical Branch doxycycline 2018-04 Yes 50mg Take 50 mg Univers 50 mg 0-17 by mouth ity of capsule 13:48: every 12 [place] [address] (twelve) Medical hours. Branch pantoprazol 2018-04 Yes Take by Un ana maría e sodium 0-17 mouth. ity of (PANTOPRAZO 13:48: [place] LE ORAL) 39 Medical Branch doxycycline 2018-04 Yes 50mg Take 50 mg Univers 50 mg 0-17 by mouth ity of capsule 13:48: every 12 [place] [address] (twelve) Medical hours. Branch pantoprazol 2018-04 Yes Take by Un ana maría e sodium 0-17 mouth. ity of (PANTOPRAZO 13:48: [place] LE ORAL) 39 Medical Branch acetaminoph Yes 1{tbl} Take 1 Un ana maría en-codeine 8-14 tablet by ity of 300-30 mg 00:00: mouth [place] tablet 00 every 6 Medical (six) Branch hours as needed for Pain (scale 7-10). acetaminoph 2018-0 Yes 1{tbl} Take 1 Un ana maría en-codeine 8-14 tablet by ity of 300-30 mg 00:00: mouth [place] tablet 00 every 6 Medical (six) Branch hours as needed for Pain (scale 7-10). acetaminoph 2018-0 Yes 1{tbl} Take 1 Un ana maría en-codeine 8-14 tablet by ity of 300-30 mg 00:00: mouth [place] tablet 00 every 6 Medical (six) Branch hours as needed for Pain (scale 7-10). acetaminoph 2018-0 Yes 1{tbl} Take 1 Un ana maría en-codeine 8-14 tablet by ity of 300-30 mg 00:00: mouth [place] tablet 00 every 6 Medical (six) Branch hours as needed for Pain (scale 7-10). acetaminoph 2017-0 Yes 1{tbl} Take 1 Un ana maría en-codeine 8-14 tablet by ity of 300-30 mg 00:00: mouth [place] tablet 00 every 6 Medical (six) Branch hours as needed for Pain (scale 7-10). acetaminoph 2017-0 Yes 1{tbl} Take 1 Un ana maría en-codeine 8-14 tablet by ity of 300-30 mg 00:00: mouth [place] tablet 00 every 6 Medical (six) Branch hours as needed for Pain (scale 7-10). acetaminoph 2018-0 Yes 1{tbl} Take 1 Un ana maría en-codeine 8-14 tablet by ity of 300-30 mg 00:00: mouth [place] tablet 00 every 6 Medical (six) Branch hours as needed for Pain (scale 7-10). acetaminoph 2018-0 Yes 1{tbl} Take 1 Un ana maría en-codeine 8-14 tablet by ity of 300-30 mg 00:00: mouth [place] tablet 00 every 6 Medical (six) Branch hours as needed for Pain (scale 7-10). acetaminoph 2018-0 Yes 1{tbl} Take 1 Un ana maría en-codeine 8-14 tablet by ity of 300-30 mg 00:00: mouth [place] tablet 00 every 6 Medical (six) Branch hours as needed for Pain (scale 7-10). acetaminoph 2018-0 Yes 1{tbl} Take 1 Un ana maría en-codeine 8-14 tablet by ity of 300-30 mg 00:00: mouth [place] tablet 00 every 6 Medical (six) Branch hours as needed for Pain (scale 7-10). acetaminoph 2018-0 Yes 1{tbl} Take 1 Un ana maría en-codeine 8-14 tablet by ity of 300-30 mg 00:00: mouth [place] tablet 00 every 6 Medical (six) Branch hours as needed for Pain (scale 7-10). acetaminoph 2018-0 Yes 1{tbl} Take 1 Un ana maría en-codeine 8-14 tablet by ity of 300-30 mg 00:00: mouth [place] tablet 00 every 6 Medical (six) Branch hours as needed for Pain (scale 7-10). acetaminoph 2018-0 Yes 1{tbl} Take 1 Un ana maría en-codeine 8-14 tablet by ity of 300-30 mg 00:00: mouth [place] tablet 00 every 6 Medical (six) Branch hours as needed for Pain (scale 7-10). acetaminoph 2018-0 Yes 1{tbl} Take 1 Un ana maría en-codeine 8-14 tablet by ity of 300-30 mg 00:00: mouth [place] tablet 00 every 6 Medical (six) Branch hours as needed for Pain (scale 7-10). acetaminoph 2018-0 Yes 1{tbl} Take 1 Un ana maría en-codeine 8-14 tablet by ity of 300-30 mg 00:00: mouth [place] tablet 00 every 6 Medical (six) Branch hours as needed for Pain (scale 7-10). acetaminoph 2018-0 Yes 1{tbl} Take 1 Un ana maría en-codeine 8-14 tablet by ity of 300-30 mg 00:00: mouth [place] tablet 00 every 6 Medical (six) Branch hours as needed for Pain (scale 7-10). acetaminoph 2018-0 Yes 1{tbl} Take 1 Un ana maría en-codeine 8-14 tablet by ity of 300-30 mg 00:00: mouth [place] tablet 00 every 6 Medical (six) Branch hours as needed for Pain (scale 7-10). acetaminoph Yes 1{tbl} Take 1 Un ana maría en-codeine 8-14 tablet by ity of 300-30 mg 00:00: mouth [place] tablet 00 every 6 Medical (six) Branch hours as needed for Pain (scale 7-10). acetaminoph Yes 1{tbl} Take 1 Un ana maría en-codeine 8-14 tablet by ity of 300-30 mg 00:00: mouth [place] tablet 00 every 6 Medical (six) Branch hours as needed for Pain (scale 7-10). acetaminoph Yes 1{tbl} Take 1 Un ana maría en-codeine 8-14 tablet by ity of 300-30 mg 00:00: mouth [place] tablet 00 every 6 Medical (six) Branch hours as needed for Pain (scale 7-10). acetaminoph Yes 1{tbl} Take 1 Un ana maría en-codeine 8-14 tablet by ity of 300-30 mg 00:00: mouth [place] tablet 00 every 6 Medical (six) Branch hours as needed for Pain (scale 7-10). acetaminoph Yes 1{tbl} Take 1 Un ana maría en-codeine 8-14 tablet by ity of 300-30 mg 00:00: mouth [place] tablet 00 every 6 Medical (six) Branch hours as needed for Pain (scale 7-10). acetaminoph Yes 1{tbl} Take 1 Un ana maría en-codeine 8-14 tablet by ity of 300-30 mg 00:00: mouth [place] tablet 00 every 6 Medical (six) Branch hours as needed for Pain (scale 7-10). acetaminoph Yes 1{tbl} Take 1 Un ana maría en-codeine 8-14 tablet by ity of 300-30 mg 00:00: mouth [place] tablet 00 every 6 Medical (six) Branch hours as needed for Pain (scale 7-10). acetaminoph Yes 1{tbl} Take 1 Un ana maría en-codeine 8-14 tablet by ity of 300-30 mg 00:00: mouth [place] tablet 00 every 6 Medical (six) Branch hours as needed for Pain (scale 7-10). Immunizations Ordered Filled Immunization Date Status Comments [facility] e Immunization Name Name TDAP (ADACEL) 2014-05-31 Completed University of VACCINE 00:00:00 [place] [facility] TDAP (ADACEL) 2014-05-31 Completed University of VACCINE 00:00:00 [place] [facility] TDAP (ADACEL) 2014-05-31 Completed University of VACCINE 00:00:00 [place] [facility] TDAP (ADACEL) 2014-05-31 Completed University of VACCINE 00:00:00 [place] [facility] TDAP (ADACEL) 2014-05-31 Completed University of VACCINE 00:00:00 [place] [facility] TDAP (ADACEL) 2014-05-31 Completed University of VACCINE 00:00:00 [place] [facility] TDAP (ADACEL) 2014-05-31 Completed University of VACCINE 00:00:00 [place] [facility] TDAP (ADACEL) 2014-05-31 Completed University of VACCINE 00:00:00 [place] [facility] TDAP (ADACEL) 2014-05-31 Completed University of VACCINE 00:00:00 [facility] TDAP (ADACEL) 2014-05-31 Completed University of VACCINE 00:00:00 [place] [facility] TDAP (ADACEL) 2014-05-31 Completed University of VACCINE 00:00:00 [facility] Branch TDAP (ADACEL) 2014-05-31 Completed University of VACCINE 00:00:00 [facility] Branch TDAP (ADACEL) 2014-05-31 Completed University of VACCINE 00:00:00 [place] [facility] TDAP (ADACEL) 2014-05-31 Completed University of VACCINE 00:00:00 [facility] Branch TDAP (ADACEL) 2014-05-31 Completed University of VACCINE 00:00:00 [place] [facility] TDAP (ADACEL) 2014-05-31 Completed University of VACCINE 00:00:00 [place] [facility] TDAP (ADACEL) 2014-05-31 Completed University of VACCINE 00:00:00 [place] [facility] TDAP (ADACEL) 2014-05-31 Completed University of VACCINE 00:00:00 [place] [facility] TDAP (ADACEL) 2014-05-31 Completed University of VACCINE 00:00:00 [place] [facility] TDAP (ADACEL) 2014-05-31 Completed University of VACCINE 00:00:00 [facility] Branch TDAP (ADACEL) 2014-05-31 Completed University of VACCINE 00:00:00 [place] [facility] TDAP (ADACEL) 2014-05-31 Completed University of VACCINE 00:00:00 [place] [facility] TDAP (ADACEL) 2014-05-31 Completed University of VACCINE 00:00:00 [facility] TDAP (ADACEL) 2014-05-31 Completed University of VACCINE 00:00:00 [facility] TDAP (ADACEL) 2014-05-31 Completed University of VACCINE 00:00:00 [facility] Vital Signs Vital Name Observation Time Observation Value Comments Source Systolic blood 2020-11-03 15:58:00 120 mm[Hg] Univer sity of pressure [facility] Diastolic blood 2020-11-03 15:58:00 82 mm[Hg] Unive rsity of pressure [facility] Heart rate 2020-11-03 15:58:00 56 /min Universi ty of [facility] Body temperature 2020-11-03 15:58:00 36.89 [facility] Respiratory rate 2020-11-03 15:58:00 16 /min [facility] Body height 2020-11-03 15:58:00 165.1 cm Universi ty of [facility] Body weight 2020-11-03 15:58:00 93.759 kg Universi ty of [facility] BMI 2020-11-03 15:58:00 34.40 kg/m2 Universi ty of [facility] Systolic blood 2020-05-28 17:30:00 124 mm[Hg] Univer sity of pressure [facility] Diastolic blood 2020-05-28 17:30:00 87 mm[Hg] Unive rsity of [facility] Heart rate 2020-05-28 17:30:00 75 /min Universi ty of [facility] Respiratory rate 2020-05-28 17:30:00 12 /min [facility] Oxygen saturation in 2020-05-28 17:30:00 100 /min [facility] Arterial blood by [facility] Pulse oximetry Branch Body temperature 2020-05-28 15:49:00 36.28 Sharda [facility] ersity of [facility] Body height 2020-05-28 11:20:00 165.1 cm Universi ty of [facility] Body weight 2020-05-28 11:13:00 91.8 kg Universi ty of [facility] BMI 2020-05-28 11:13:00 33.68 kg/m2 Universi ty of [place] [facility] Systolic blood 2020-04-30 20:35:00 116 mm[Hg] Univer sity of pressure [place] [facility] Diastolic blood 2020-04-30 20:35:00 72 mm[Hg] Unive rsity of pressure [place] [facility] Heart rate 2020-04-30 20:35:00 82 /min Universi ty of [place] [facility] Body temperature 2020-04-30 20:35:00 37.17 Sharda Univ ersity of [place] [facility] Respiratory rate 2020-04-30 20:35:00 19 /min Univ ersity of [place] [facility] Body height 2020-04-30 20:35:00 162.6 cm Universi ty of [place] [facility] Body weight 2020-04-30 20:35:00 91.264 kg Universi ty of [place] [facility] BMI 2020-04-30 20:35:00 34.54 kg/m2 Universi ty of [place] [facility] Systolic blood 2020-04-07 20:36:00 124 mm[Hg] Univer sity of pressure [place] [facility] Diastolic blood 2020-04-07 20:36:00 80 mm[Hg] Unive rsity of pressure [place] [facility] Heart rate 2020-04-07 20:36:00 68 /min Universi ty of [place] [facility] Body temperature 2020-04-07 20:36:00 37 Sharda Univ ersity of [place] [facility] Respiratory rate 2020-04-07 20:36:00 18 /min Univ ersity of [place] [facility] Body height 2020-04-07 20:36:00 162.6 cm Universi ty of [place] [facility] Body weight 2020-04-07 20:36:00 90.583 kg Universi ty of [place] [facility] BMI 2020-04-07 20:36:00 34.28 kg/m2 Universi ty of [place] [facility] Systolic blood 2019-10-28 15:17:00 112 mm[Hg] Univer sity of pressure [place] [facility] Diastolic blood 2019-10-28 15:17:00 74 mm[Hg] Unive rsity of pressure [place] [facility] Heart rate 2019-10-28 15:17:00 78 /min Universi ty of [place] [facility] Body temperature 2019-10-28 15:17:00 36.78 Sharda Univ ersity of [place] [facility] Respiratory rate 2019-10-28 15:17:00 18 /min Univ ersity of [place] [facility] Body height 2019-10-28 15:17:00 162.6 cm Universi ty of [place] [facility] Body weight 2019-10-28 15:17:00 91.581 kg Universi ty of [place] [facility] BMI 2019-10-28 15:17:00 34.66 kg/m2 Universi ty of [place] [facility] Systolic blood 2019-10-28 15:17:00 112 mm[Hg] Univer sity of pressure [place] [facility] Diastolic blood 2019-10-28 15:17:00 74 mm[Hg] Unive rsity of pressure [facility] Branch Heart rate 2019-10-28 15:17:00 78 /min Universi ty of [facility] Body temperature 2019-10-28 15:17:00 36.78 Sharda Univ ersity of [facility] Branch Respiratory rate 2019-10-28 15:17:00 18 /min Univ ersity of [facility] Body height 2019-10-28 15:17:00 162.6 cm Universi ty of [place] [facility] Body weight 2019-10-28 15:17:00 91.581 kg Universi ty of [place] [facility] BMI 2019-10-28 15:17:00 34.66 kg/m2 Universi ty of [place] [facility] Systolic blood 2019-10-29 19:41:00 110 mm[Hg] Univer sity of pressure [place] [facility] Diastolic blood 2019-10-29 19:41:00 76 mm[Hg] Unive rsity of pressure [facility] Branch Heart rate 2019-10-29 19:41:00 71 /min Universi ty of [facility] Branch Body temperature 2019-10-29 19:41:00 37.11 Sharda Univ ersity of [facility] Branch Respiratory rate 2019-10-29 19:41:00 18 /min Univ ersity of [facility] Body height 2019-10-29 19:41:00 162.6 cm Universi ty of [place] [facility] Body weight 2019-10-29 19:41:00 91.717 kg Universi ty of [place] [facility] BMI 2019-10-29 19:41:00 34.71 kg/m2 [facility] ty [facility] [place] [facility] Procedures Procedure Date / Time Performing Clinician Source Performed POCT TEST 2020-11-03 16:02:00 Codi Longoria [facility] ABORH CONFIRMATION 2020-05-28 12:26:00 Pastor Saab [facility] CBC WITH DIFF 2020-05-28 11:42:00 Russell Davies [facility] HB ABO GROUPING 2020-05-28 11:40:00 Russell Davies [facility] ASSIGNMENT OF BENEFITS 2020-05-28 11:04:29 Doctor Unassigned, No [facility] BCCS-RELATED 2020-02-28 06:01:00 Doctor Unassigned, No [facility] POCT TEST 2019-10-29 20:38:00 Bela Ryan [facility] DISCLOSURE AND CONSENT, 2019-10-29 05:01:00 Doctor Unassigned, N o [facility] MEDICAL AND SURGICAL [facility] nc PROCEDURES PAP SMEAR-LIQUID 2019-10-28 16:21:00 Amyaa Middleton [facility] Encounters Start End Encounter Admission Attending Care Care Encounter Source Date/Time Date/Time Type Type Clinicians Facility Department ID 2021-01-29 Outpatient ALESHA [facility] SHIFT FOREMAN [id number] Univers 20:41:42 PASTOR [facility] 2021-01-28 Emergency [facility] [id number] Univers 08:49:29 [facility] 2021-07-11 2021-07-11 Outpatient Clay LONGORIA [facility] [id number] Univers 15:15:00 15:15:00 CODI [id number] ity o f [facility] 2021-05-10 2021-05-11 Emergency E MANDI, MHBL MHBL [id number] MHBL 23:46:00 03:29:00 REEVA 2021-04-29 2021-04-29 Outpatient DENIS PENNY MHSE [id number] MH 09:28:00 14:15:00 [facility] 2020-11-03 2020-11-03 Office Von [facility] [id number] Univers 10:18:48 12:09:43 Visit Codi Williamson MASONRY INSPECTOR [id number] ity [facility] 4.2.7.2.686 Ced as MATERNAL [id number] Med ical & CHILD [address] [place] [address] 2020-11-03 2020-11-03 [facility] [id number] Univers 10:30:00 10:30:00 ANNIENAVARRO wigginsy o [facility] 2020-11-03 2020-11-03 Outpatient [facility] [id number] Univers 08:15:00 08:15:00 TAMINAVARRO [id number] ity o [facility] 2020-11-03 2020-11-03 Outpatient [facility] [id number] Univers 08:15:00 08:15:00 ANNIEMARKParth wigginsy o [facility] 2020-06-22 2020-06-22 [email or web address] [id number] Univers 00:00:00 00:00:00 Outreach Sanjeev ASHTON [id number] i ty [facility] [place] [id number] Sd dical [address] 2020-06-11 2020-06-11 Outpatient R [facility] [id number] Univers 13:00:00 13:00:00 [id number] ity of [facility] 2020-06-11 2020-06-11 Outpatient R [facility] [id number] Univers 13:00:00 13:00:00 ity of [facility] 2020-05-28 2020-05-28 [facility] Barbara Saab [id number] Univers 05:05:00 11:48:00 Encounter Pastor Graham [id number] ity of [facility] 4.2.7.2.686 Ced [place] [id number] [address] 2020-05-28 2020-05-28 Orders Doctor ADLLIN 1.2.840.114 [id number] Univers 00:00:00 00:00:00 Only Unassigned, YONATAN 350.1.13.10 ity of [facility] 4.2.7.2.686 Ced as [id number] [facility] 009 Branch 2020-05-27 2020-05-27 Laboratory Only, [facility] Test UNIVERSIT 1.2.84 0.114 [id number] Univers 15:54:09 16:09:09 Only Pastor Saab HEALTH 350.1.13.10 ity [place] [id number] [facility] 316 Branch 2020-05-27 2020-05-27 Outpatient [facility] [id number] Univers 16:00:00 16:00:00 [id number] ity [facility] 2020-05-27 2020-05-27 [facility]patient [facility] [id number] Univers 16:00:00 16:00:00 [facility] 2020-04-30 2020-04-30 Office Pool, [facility] Resident UNIVERSIT 1.2.8 40.114 [id number] Univers 14:17:56 15:57:41 Visit Pastor Saab [facility] HEALTH 350.1.13.10 ity [place] [id number] [facility] 113 Branch 2020-04-30 2020-04-30 Outpatient R [facility] [id number] Univers 14:15:00 14:15:00 [id number] ity [facility] 2020-04-30 2020-04-30 [facility]patient [facility] [id number] Univers 14:15:00 14:15:00 PASTOR ity [facility] 2020-04-28 2020-04-28 Outpatient R [facility] [id number] Univers 13:45:00 13:45:00 [id number] ity [facility] 2020-04-12 2020-04-12 Telephone Young Faust UNIVERSIT 1.2.840.114 [id number] Univers 00:00:00 00:00:00 Y HEALTH 350.1.13.10 i ty [place] [id number] [facility] 113 Branch 2020-04-07 2020-04-07 Office Pool, [facility] Resident UNIVERSIT 1.2.8 40.114 [id number] Univers 14:13:55 15:07:04 Visit Yani Peralta HEALTH 350.1.13. 10 ity [place] [id number] [address] 2020-04-07 2020-04-07 Outpatient R [facility] [id number] Univers 14:00:00 14:00:00 [id number] ity of [facility] 2020-04-07 2020-04-07 Outpatient R [facility] [id number] Univers 14:00:00 14:00:00 ity of [facility] 2020-03-05 2020-03-05 Telephone CLAYTON Martinez 1.2.840.114 [id number] Univers 00:00:00 00:00:00 [facility] 350.1.13.10 i ty [place] [id number] [address] 2020-02-28 2020-02-28 Case Juan [facility] [id number] Univers 00:00:00 00:00:00 Management [facility] 350.1.13.10 ity [place] [id number] [address] 2020-02-28 2020-02-28 Orders Doctor DALLIN 1.2.840.114 [id number] Univers 00:00:00 00:00:00 Only Unassigned, YONATAN 350.1.13.10 ity of [facility] 4.2.7.2.686 [place]ed [place] [id number] [place] [address] Branch 2020-02-19 2020-02-19 Outpatient R YOUNG FAUST [facility] [id number] Univers 13:00:00 13:00:00 ity of [facility] 2020-02-19 2020-02-19 Outpatient R VON [facility] [id number] Univers 10:30:00 10:30:00 CODI [id number] ity o f [facility] 2019-10-28 2019-10-30 Office Res-Colpo/Leep, [facility] UNIVERSI T 1.2.840.114 [id number] Univers 10:03:42 10:59:07 Visit Pastor Saab Y HEALTH 350.1.13.10 ity [place] [id number] [address] 2019-10-28 2019-10-30 Office Res-Colpo/L UNIVERSIT 1.2.840.114 [id number] 10:03:42 10:59:07 Visit eep, Y HEALTH 350.1.13.10 [facility] CLINICS 4.2.7.2.686 [id number] 113 2019-10-29 2019-10-29 Office Pool, [facility] Resident UNIVERSIT 1.2.8 40.114 [id number] Univers 14:15:21 15:43:38 Visit Pastor Saab HEALTH 350.1.13.10 ity [place] [id number] [address] 2019-10-29 2019-10-29 Outpatient R [facility] [id number] Univers 14:15:00 14:15:00 [id number] ity of [facility] 2019-10-29 2019-10-29 Outpatient R [facility] [id number] Univers 14:15:00 14:15:00 ity of [facility] 2019-10-29 2019-10-29 Orders Doctor ZAMARRIPA 1.2.840.114 [id number] Univers 00:00:00 00:00:00 Only Unassigned, YONATAN 350.1.13.10 ity of [facility] 4.2.7.2.686 Ced [place] [id number] [address] 2019-10-29 2019-10-29 Orders Doctor ZAMARRIPA 1.2.840.114 [id number] 00:00:00 00:00:00 Only Unassigned, YONATAN 350.1.13.10 [facility] 4.2.7.2.686 [id number] 2019-10-28 2019-10-28 Outpatient R [facility] [id number] Univers 10:00:00 10:00:00 [id number] ity of [facility] 2019-10-28 2019-10-28 Outpatient R [facility] [id number] Univers 10:00:00 10:00:00 [facility] 2019-10-26 2019-10-26 Emergency Paula [facility] [id number] Univers 01:04:14 01:05:00 Sofiya Dickson 350.1.13.10 [facility] 4.2.7.2.686 [facility] [id number] [place] [address] Branch 2019-09-02 2019-09-02 Outpatient R [facility] [id number] -[id number] Univers 09:00:00 09:00:00 [facility] 2019-09-02 2019-09-02 Outpatient R [facility] [id number] Univers 09:00:00 09:00:00 [facility] 2019-08-21 2019-08-21 Outpatient R [facility] [id number] Univers 10:00:00 10:00:00 [id number] [facility] 2019-08-21 2019-08-21 Outpatient R [facility] [id number] Univers 10:00:00 10:00:00 [facility] Results Test Description Test Time Test Comments Results Result Comments Source POCT TEST 2020-11-03 16:02:00 Test Item Value Reference Range Interpretation Comme nts POCT PREG (test code = 1605) Negative On board controls acceptable with C Line (test code = 3574) Yes POCT PREG LOT # (test code = 3575) POCT PREG TEST DATE (test code = 3576) Lab Interpretation (test code = 06685-7) [id number] 16:02:00 Test Item Value Reference Range Interpretation Comments POCT PREG (test code = 1605) Negative On board controls acceptable with C Yes Line (test code = 3574) POCT PREG LOT # (test code = 3575) POCT PREG TEST DATE (test code = 3576) Lab Interpretation (test code = Normal 98914-0) [facility] [id number] 12:45:37 Test Item Value Reference Range Interpretation Comments ABO & RH (test code A Positive Performe d at [facility] = 20) Laboratory [facility] Blood Bank3 [address] [facility] [address]Uqyh Free: [phone] A No. [id number] [facility] - The Type and Screen expires at midnight on the 3rd day after it was drawn. A current Type and Screen is required when RBCs are requested. For all other blood products, a Type and Scre en performed during the current hospitalizati...2020-05-28 12:28:34 Test Item Value Reference Range Interpretation Comments ABO & RH (test code A POSITIVE Performe d at [facility] = 20) Laboratory [facility] Blood [facility] [address] [place] [address]Xvmm Free: [phone] A No. [id number] IAT (test code = Negative Performed a t [facility] 1185) Laboratory [facility] Blood [facility] [address] [place] [address]Ahrf Free: [phone] A No. [id number] [facility] WITH [id number] 11:57:00 Test Item Value Reference Range Interpretation Comments WBC (test code = See_Comment [Automated message] 6690-2) The system [employer] generated this result transmitted ref erence range: 4.30 - 1 1.10 10*3/?L. The re ference range was not u sed to interpret this result as normal/abnor mal. RBC (test code = See_Comment [Automated message] 789-8) The system [employer] generated this result transmitted ref erence range: 3.93 - 5 .25 10*6/?L. The re ference range was not u sed to interpret this result as normal/abnor mal. HGB (test code = 12.7 g/dL 11.6-15 718-7) HCT (test code = 38.2 % 35.7-45.2 4544-3) MCV (test code = 92.7 fL 80.6-95.5 787-2) MCH (test code = 30.8 pg 25.9-32.8 785-6) MCHC (test code = 33.2 g/dL 31.6-35.1 786-4) RDW-SD (test code 41.5 fL 39-49.9 = 33597-3) RDW-CV (test code 12.2 % 12-15.5 = 788-0) PLT (test code = See_Comment [Automated message] 777-3) The system [employer] generated this result transmitted ref erence range: 166 - 35 8 10*3/?L. The re ference range was not u sed to interpret this result as normal/abnor mal. MPV (test code = 11.6 fL 9.5-12.9 46953-9) NRBC/100 WBC (test See_Comment [Automat ed message] code = 6892609814) The syste m which generated this result transmitted ref erence range: 0.0 - 10 .0 /100 WBCs. The refer ence range was not u sed to interpret this result as normal/abnor mal. NRBC x10^3 (test <0.01 See_Comment [Automated message] code = 3090684283) The syste m which generated this result transmitted ref erence range: 10*3/?L. The reference range was not used to interpr et this result as normal/abnormal . GRAN MAT (NEUT) % 58.7 % (test code = 770-8) IMM GRAN % (test 0.20 % code = 5116260896) LYMPH % (test code 30.6 % = 736-9) MONO % (test code 8.5 % = 5905-5) EOS % (test code = 1.8 % 713-8) BASO % (test code 0.2 % = 706-2) GRAN MAT 5.14 10*3/uL 1.88-7.09 x10^3(ANC) (test code = 3091585612) IMM GRAN x10^3 <0.03 0-0.06 (test code = 7394763955) LYMPH x10^3 (test 2.69 10*3/uL 1.32-3.29 code = 731-0) MONO x10^3 (test 0.75 10*3/uL 0.33-0.92 code = 742-7) EOS x10^3 (test 0.16 10*3/uL 0.03-0.39 code = 711-2) BASO x10^3 (test <0.03 0.01-0.07 code = 704-7) [facility] [id number] 20:38:00 Test Item Value Reference Range Interpretation Comments POCT PREG (test code = 1605) Negative On board controls acceptable with C Yes Line (test code = 3574) POCT PREG LOT # (test code = 3575) POCT PREG TEST DATE (test code = 3576) Lab Interpretation (test code = Normal 77240-7) [facility] [id number] 20:38:00 Test Item Value Reference Range Interpretation Comments POCT PREG (test code = 1605) Negative On board controls acceptable with C Yes Line (test code = 3574) POCT PREG LOT # (test code = 3575) POCT PREG TEST DATE (test code = 3576) Lab Interpretation (test code = Normal 35152-6) [facility]
[2021-06-10] MEDS ORDERED: ONDANSETRON 4 MG/2 ML VIAL ONE (10:09)
[2021-06-10] MEDS ORDERED: MORPHINE 4 MG/ML SYR ONE (10:09)
[2021-06-10] MEDS ORDERED: NA CHLORIDE 0.9% 500 ML ONE (10:09)
[2021-06-10 10:12] LABS: Absolute Lymphocytes (CBC) 2.5 K/uL (0.7-4.9); Hematocrit 37.4 % (36.0-45.0); Lymphocytes % 29.4 % (15.3-44.8); MPV 9.5 fL (7.6-11.3); RBC Red Blood Cell Count 4.14 M/uL (3.86-4.86)
[2021-06-10 10:31] LABS: ALT/SGPT 38 U/L (12-78); AST/SGOT 26 U/L (15-37); Albumin 3.3 g/dL (3.4-5.0); Alkaline Phosphatase 78 U/L (45-117); BUN Blood Urea Nitrogen 13 mg/dL (7-18); Bicarbonate 28 mmol/L (21-32); Bilirubin Total 0.3 mg/dL (0.2-1.0); Glucose Level 90 mg/dL (74-106); Lipase 79 U/L (73-393); Protein, Total 7.1 g/dL (6.4-8.2); Sodium Level 138 mmol/L (136-145)
[2021-06-10 10:33] LABS: Bilirubin Direct < 0.1 mg/dL (0-0.2)
[2021-06-10 11:02] LABS: Urine Blood Negative (Negative); Urine Glucose Negative (Negative); Urine Protein Negative (Negative); Urine Specific Gravity 1.015 (1.005-1.030)
--- NOTE | 2021-06-10 12:31 | RAD REPORT ---
EXAM DESCRIPTION: CTAbdomen Pelvis Wo Contrast - 06/10/2021 12:23 pm CLINICAL HISTORY: Perirectal pain status post fistula repair COMPARISON: Abdomen Pelvis W Contrast dated 02/19/2020; Abdomen Pelvis W Contrast dated 6; Abdomen Pelvis W Contrast dated 09/27/2015 TECHNIQUE: CT of the abdomen and pelvis was performed. All CT scans are performed using dose optimization technique as appropriate and may include automated exposure control or mA/KV adjustment according to patient size. FINDINGS: Lower chest: No acute abnormality. Liver: No acute abnormality or suspicious lesions. Biliary: No biliary ductal dilatation. Stomach: No significant focal abnormality. Duodenum: No significant focal abnormality. Pancreas: No significant abnormality. Spleen: No significant abnormality. Adrenal: No suspicious lesions. Kidney/ureter: No hydronephrosis. No renal calculi. Retroperitoneum: No retroperitoneal adenopathy. Vascular: No aneurysm. Bowel: No significant focal abnormality. Normal appendix . Peritoneum: No ascites or free air. Bladder: Grossly unremarkable. Reproductive: No adnexal masses. IUD. Bones: No acute fracture. Other: Perianal soft tissue. Linear foreign bodies at the right perianal region at approximately 7-8 o'clock may be either anastomotic suture or wire traversing the reported fistulas. No fluid collectio n is identified. IMPRESSION: Post surgical changes in the perianal region. Within the limits of a noncontrast CT, no complicating features are identified at the surgical site. No acute intra-abdominal abnormality is id entified either. Normal appendix.
--- NOTE | 2021-06-10 13:18 | ER ---
Nurse's Notes [facility] Name: Ben Rosa Age: 25 yrs Sex: Female : 1995 Arrival Date: 06/10/2021 Time: 09:02 Bed 15 Private MD: Diagnosis: Rectal pain Presentation: 06/10 09:09 Chief complaint: Patient states: Perianal fistula surgery on 04/29/21, bleeding and jl7 pressure from wound site, epigastric and LLQ abdominal pain since yesterday, called Dr. Sanches, colorectal specialist in [place] and he's in surgery today so they told me to come be evaluated at the ER. Hx of perianal fistula repairs x 8. Coronavirus screen: At this time, the client does not indicate any symptoms associated with coronavirus-19. Ebola Screen: No symptoms or risks identified at this time. Initial Sepsis Screen: Does the patient meet any 2 criteria? No. Patient's initial sepsis screen is negative. Does the patient have a suspected source of infection? No. Patient's initial sepsis screen is negative. Risk Assessment: Do you want to hurt yourself or someone else? Patient reports no desire to harm self or others. Onset of symptoms was June 09, 2021. 09:09 Method Of Arrival: Ambulatory jl7 09:09 Acuity: JOSE 3 jl7 Triage Assessment: 09:12 General: Appears in no apparent distress. uncomfortable, Behavior is calm, cooperative, jl7 appropriate for age. Pain: Complains of pain in epigastric area and left lower quadrant Pain currently is 7 out of 10 on a pain scale. 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 - Social history:: Smoking status: Patient denies any tobacco usage or history of. Screenin:47 Abuse screen: Denies threats or abuse. Nutritional screening: No deficits noted. ll1 Tuberculosis screening: No symptoms or risk factors identified. 09:48 Fall Risk Total Mathews Fall Scale indicates No Risk (0-24 pts). ll1 Assessment: 09:47 Reassessment: No changes from previously documented assessment. Patient and/or family ll1 updated on plan of care and expected duration. Pain level reassessed. Patient is alert, oriented x 3, equal unlabored respirations, skin warm/dry/pink. rectal exam with Dr. Florez. Tolerated well. 10:45 Reassessment: No changes from previously documented assessment. Patient and/or family ll1 updated on plan of care and expected duration. Pain level reassessed. Patient is alert, oriented x 3, equal unlabored respirations, skin warm/dry/pink. 11:23 Reassessment: No changes from previously documented assessment. Patient and/or family ll1 updated on plan of care and expected duration. Pain level reassessed. Patient is alert, oriented x 3, equal unlabored respirations, skin warm/dry/pink. 12:20 Reassessment: No changes from previously documented assessment. Patient and/or family ll1 updated on plan of care and expected duration. Pain level reassessed. Patient is alert, oriented x 3, equal unlabored respirations, skin warm/dry/pink. 13:20 Reassessment: No changes from previously documented assessment. Patient and/or family ll1 updated on plan of care and expected duration. Pain level reassessed. Patient is alert, oriented x 3, equal unlabored respirations, skin warm/dry/pink. Vital Signs: 09:09 BP 110 / 59; Pulse 70; Resp 19; Temp 98.2; Pulse Ox 98% on R/A; Weight 102.06 kg; jl7 Height 5 ft. 1 in. (154.94 cm); Pain 7/10; 11:22 BP 119 / 91; Pulse 67; Resp 16; ll1 13:39 BP 121 / 81; Pulse 74; Resp 17; ll1 09:09 Body Mass Index 42.51 (102.06 kg, 154.94 cm) jl7 ED Course: 09:02 Patient arrived in ED. kz 09:12 Triage completed. jl7 09:12 Arm band placed on right wrist. jl7 09:18 Roman Florez MD is Attending Physician. kdr 09:47 Ginger العلي, RN is Primary Nurse. ll1 09:48 Patient has correct armband on for positive identification. Bed in low position. Call ll1 light in reach. Side rails up X 1. Pulse ox on. NIBP on. 10:02 Inserted saline lock: 22 gauge in right antecubital area, using aseptic technique. ll1 Blood collected. 12:23 CT Abd/Pelvis - Without Contrast In Process Unspecified. EDMS 13:40 No provider procedures requiring assistance completed. IV discontinued, intact, ll1 bleeding controlled, No redness/swelling at site. Pressure dressing applied. Administered Medications: 10:14 Drug: NS 0.9% 500 ml Route: IV; Rate: bolus; Site: right antecubital; ll1 13:35 Follow up: Response: No adverse reaction; IV Status: Completed infusion; IV Intake: ll1 500ml 10:15 Drug: morphine 4 mg {Note: rass 0.} Route: IVP; Site: right antecubital; ll1 11:24 Follow up: Response: No adverse reaction ll1 10:15 Drug: Zofran (Ondansetron) 4 mg Route: IVP; Site: right antecubital; ll1 11:24 Follow up: Response: No adverse reaction ll1 Intake: 13:35 IV: 500ml; Total: 500ml. ll1 Outcome: 13:17 Discharge ordered by . kdr 13:40 Discharged to home ambulatory. ll1 13:40 Condition: stable 13:40 Discharge instructions given to patient, family, Instructed on discharge instructions, follow up and referral plans. Demonstrated understanding of instructions, follow-up care. 13:40 Patient left the ED. ll1 Signatures: Dispatcher [employer] EDMS Roman Florez MD MD kdr Hemal Schmitz RN RN jl7 Ginger العلي, RN RN ll1 Bela Daniels Corrections: (The following items were deleted from the chart) :14 09:12 PMHx: Bacterial Vaginosis; sky swanson
--- NOTE | 2021-06-10 13:18 | EDPHYS ---
Physician Documentation [facility] Name: Ben Rosa Age: 25 yrs Sex: Female : 1995 Arrival Date: 06/10/2021 Time: 09:02 Bed 15 Private MD: ED Physician Roman Florez HPI: 06/10 10:25 This 25 yrs old Female presents to ER via Ambulatory with complaints of Complications kdr with previous fistula surgery. 10:25 The patient presents to the emergency department with rectal bleeding, From fistulas. kdr Onset: The symptoms/episode began/occurred at an unknown time. This is an ongoing problem that the patient has had multiple surgeries for previously.. Abdominal pain: located in the epigastric area and left upper quadrant. Modifying factors: The symptoms are alleviated by nothing, the symptoms are aggravated by Sitting down. Associated signs and symptoms: Pertinent positives: constipation, Abdominal and rectal pain. Severity of symptoms: At their worst the symptoms were mild in the emergency department the symptoms are unchanged. The patient has not recently seen a physician. Patient states that she has had a recurrent fistula issues and had has had multiple surgeries to repair the fistulas. Stated couple days ago one of the fistula was ruptured and she had had some bleeding from that since. She also indicated that she is having increasing pain to her perirectal area and that it feels swollen. 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 - Social history:: Smoking status: Patient denies any tobacco usage or history of. ROS: 10:25 Constitutional: Negative for fever, chills, and weight loss, Eyes: Negative for injury, kdr pain, redness, and discharge, ENT: Negative for injury, pain, and discharge, Neck: Negative for injury, pain, and swelling, Cardiovascular: Negative for chest pain, palpitations, and edema, Respiratory: Negative for shortness of breath, cough, wheezing, and pleuritic chest pain, Back: Negative for injury and pain, : Negative for injury, bleeding, discharge, and swelling, MS/Extremity: Negative for injury and deformity, Skin: Negative for injury, rash, and discoloration, Neuro: Negative for headache, weakness, numbness, tingling, and seizure activity. Psych: Negative for depression, anxiety, suicide ideation, homicidal ideation, and hallucinations, Allergy/Immunology: Negative for hives, rash, and allergies, Endocrine: Negative for neck swelling, polydipsia, polyuria, polyphagia, and marked weight changes, Hematologic/Lymphatic: Negative for swollen nodes, abnormal bleeding, and unusual bruising. 10:25 Abdomen/GI: Positive for abdominal pain, nausea, constipation, Rectal pain and fullness. Exam: 10:25 Constitutional: This is a well developed, well nourished patient who is awake, alert, kdr and in no acute distress. Head/Face: Normocephalic, atraumatic. Eyes: Pupils equal round and reactive to light, extra-ocular motions intact. Lids and lashes normal. Conjunctiva and sclera are non-icteric and not injected. Cornea within normal limits. Periorbital areas with no swelling, redness, or edema. Neck: Trachea midline, no thyromegaly or masses palpated, and no cervical lymphadenopathy. Supple, full range of motion without nuchal rigidity, or vertebral point tenderness. No Meningismus. Chest/axilla: Normal chest wall appearance and motion. Nontender with no deformity. No lesions are appreciated. Cardiovascular: Regular rate and rhythm with a normal S1 and S2. No gallops, murmurs, or rubs. Normal PMI, no JVD. No pulse deficits. Respiratory: Lungs have equal breath sounds bilaterally, clear to auscultation and percussion. No rales, rhonchi or wheezes noted. No increased work of breathing, no retractions or nasal flaring. Back: No spinal tenderness. No costovertebral tenderness. Full range of motion. Skin: Warm, dry with normal turgor. Normal color with no rashes, no lesions, and no evidence of cellulitis. MS/ Extremity: Pulses equal, no cyanosis. Neurovascular intact. Full, normal range of motion. Neuro: Awake and alert, GCS 15, oriented to person, place, time, and situation. Cranial nerves II-XII grossly intact. Motor strength 5/5 in all extremities. Sensory grossly intact. Cerebellar exam normal. Normal gait. Psych: Awake, alert, with orientation to person, place and time. Behavior, mood, and affect are within normal limits. 10:25 Abdomen/GI: Inspection: obese Bowel sounds: active, all quadrants, Palpation: soft, mild abdominal tenderness, in the right upper quadrant, Rectal exam: rectal tone normal, Stool: garcia, guaiac negative, the exam is chaperoned by the nurse, On rectal exam, the patient has clear prior surgical incisions from the fistula repairs. There is also several areas where the sutures are prominent. Vital Signs: 09:09 BP 110 / 59; Pulse 70; Resp 19; Temp 98.2; Pulse Ox 98% on R/A; Weight 102.06 kg; jl7 Height 5 ft. 1 in. (154.94 cm); Pain 7/10; 11:22 BP 119 / 91; Pulse 67; Resp 16; ll1 13:39 BP 121 / 81; Pulse 74; Resp 17; ll1 09:09 Body Mass Index 42.51 (102.06 kg, 154.94 cm) jl7 MDM: 13:17 Patient medically screened. kdr 15:29 Data reviewed: vital signs, nurses notes. Counseling: I had a detailed discussion with kdr the patient and/or guardian regarding: the historical points, exam findings, and any diagnostic results supporting the discharge/admit diagnosis, lab results, radiology results, the need for outpatient follow up. 06/10 09:48 Order name: Basic Metabolic Panel; Complete Time: 11:14 kdr 06/10 09:48 Order name: CBC with Diff; Complete Time: 11:14 kdr 06/10 09:48 Order name: Hepatic Function; Complete Time: 11:14 kdr 06/10 09:48 Order name: Lipase; Complete Time: 11:14 kdr 06/10 09:48 Order name: CT Abd/Pelvis - Without Contrast; Complete Time: 13:14 kdr 06/10 11:01 Order name: Urine Dipstick-Ancillary; Complete Time: 11:14 EDMS 06/10 09:48 Order name: IV Saline Lock; Complete Time: 09:50 kdr 06/10 09:48 Order name: Labs collected and sent; Complete Time: 09:50 [facility] 06/10 09:56 Order name: Urine Dipstick-Ancillary (obtain specimen); Complete Time: 11:24 em1 06/10 09:56 Order name: Urine Test (obtain specimen); Complete Time: 11:24 em1 Administered Medications: 10:14 Drug: NS 0.9% 500 ml Route: IV; Rate: bolus; Site: right antecubital; ll1 13:35 Follow up: Response: No adverse reaction; IV Status: Completed infusion; IV Intake: ll1 500ml 10:15 Drug: morphine 4 mg {Note: rass 0.} Route: IVP; Site: right antecubital; ll1 11:24 Follow up: Response: No adverse reaction ll1 10:15 Drug: Zofran (Ondansetron) 4 mg Route: IVP; Site: right antecubital; ll1 11:24 Follow up: Response: No adverse reaction ll1 Disposition Summary: 06/10/21 13:17 Discharge Ordered Location: Home kdr Problem: new kdr Symptoms: have improved kdr Condition: Stable kdr Diagnosis - Rectal pain kdr Followup: kdr - With: Private Physician - When: 2 - 3 days - Reason: If symptoms return, Further diagnostic work-up, Recheck today's complaints, Continuance of care, Re-evaluation by your physician Discharge Instructions: - Discharge Summary Sheet kdr - Anorectal Abscess kdr Forms: - Medication Reconciliation Form kdr - Thank You Letter kdr - Work release form jl7 Signatures: Dispatcher [employer] Roman Pabon MD MD kdr Matias Carrion em1 Hemal Schmitz RN RN jl7 Ginger العلي RN RN ll1 Corrections: (The following items were deleted from the chart) :14 09:12 PMHx: Bacterial Vaginosis; jl7 jl7
[2021-06-10 13:47] VITALS: TEMP 98.2; O2SAT 98
[2021-06-10 13:50] VITALS: BP 121/81
== END 2021-06-10 13:40 | disposition home or self-care (01) ==
LOC: ER 08:59
DX: K62.89 Other specified diseases of anus and rectum (principal); R10.13 Epigastric pain; R10.32 Left lower quadrant pain; Z88.0 Allergy status to penicillin; Z88.1 Allergy status to other antibiotic agents; Z91.048 Other nonmedicinal substance allergy status
CPT/HCPCS: 96361; 85025; 80048; 36415; 80076; 81003; 83690; 74176; 96375; 96374; 99284; J7040; J2405

== ENCOUNTER 2022-04-04 20:00 | Emergency (ER) | payer BC ==
--- OUTSIDE RECORDS SUMMARY | 2022-04-04 20:05 | XMS REPORT | Continuity of Care Document ---
:1995 Author Organization [facility] t Address [address] [place] [address] Care Team Providers Name Role Phone DEEPA HUGHES Primary Care Physician Unavailable PASTOR SAAB Attending Clinician Unavailable Dilan Palacio Attending Clinician DILAN PALACIO Attending Clinician Unavailable CODI LONGORIA Attending Clinician Unavailable Codi Brand Attending Clinician Doctor Unassigned, [place] Attending Clinician Unavailable Lourdes Hodge Attending Clinician LOURDES HODGE Attending Clinician Unavailable Sanjeev Kohli DO Attending Clinician Pastor Saab MD Attending Clinician Only, [facility] Test Attending Clinician Unavailable Stephen [facility] Resident Attending Clinician Unavailable Young Payne Attending Clinician Yani Peralta MD Attending Clinician Nevaeh Abad Attending Clinician YOUNG FAUST Attending Clinician Unavailable Res-Colpo/Ngozi, [facility] Attending Clinician Unavailable Sofiya Mitchell MD Attending Clinician PASTOR SAAB Admitting Clinician Unavailable Pastor Saab MD Admitting Clinician Payers Payer Name Policy Type Policy Number Effective Date Expiration Date S hans [facility] [id number] 2019 00:00:00 [facility] [id number] 2021 PPO 00:00:00 Problems Condition Condition Condition Status Onset Resolution Last Treating Co mments Source Name Details Category Date Date Treatment Clinician Date UNK UNK Diagnosis Active 2021-10-24 Mem oria Active 10-13 07:06:00 l 10/13/2021 00:00: Khalif richardson [facility] 00 [place] EUA/1ST EUA/1ST Diagnosis Active 2021-10-26 Memoria STAGE FIST STAGE FIST 10-13 08:09:00 l Active 00:00: [place] 10/13/2021 00 [facility] POST OP POST OP Diagnosis Active 2021-05-11 Memoria ISSUES ISSUES 05-10 00:22:00 l Active 00:00: [place] 05/10/2021 00 [facility] FISTULOTOM FISTULOTO Diagnosis Active 2021-04-29 Memoria Y MY Active 04-27 09:30:00 l 04/27/2021 00:00: Khalif richardson 00 [facility] Encounter Encounter Disease Active Uni vers for for 11-03 ity of surveillan surveillan [place] of ce of 00 Medical other other Branch contracept contracept madonna madonna 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) 00:00: [place] infection infection 00 Medi rosanna Branch Class 1 Class 1 Disease Active Univers obesity obesity 804 ity of due to due to 00:00: [place] excess excess 00 Medical calories calories Branch with body with body mass index mass index (BMI) of (BMI) of 34.0 to 34.0 to 34.9 in 34.9 in adult, adult, unspecifie unspecifie d whether d whether serious serious comorbidit comorbidit y present y present History of History of Disease Active U nivers anxiety anxiety 8-04 ity of 00:00: [place] 00 Medical Branch Abnormal Abnormal Disease Active 2018-04 Overview: Un ana maría glandular glandular 1-21 Formattin i ty of Papanicola Papanicola 00:00: g of this [place] ou smear ou smear 00 note Medica l of cervix of cervix might be Br anch different from the original. 9- colpo done. No lesions seen IUD IUD Disease Active 2018-04 Univers (intrauter (intrauter 0-17 it y of ine ine 00:00: [place] device) in device) in [address] Branch Encounter Encounter Disease Active 2018-04 Uni vers for for 0-17 ity of insertion insertion 00:[place] mirena of mirena 00 Medi rosanna IUD IUD Branch BMI BMI Disease Active 2018-04 Univers 34.0-34.9, 34.0-34.9, 0-17 it y of adult adult 00:00: [place] 00 Medical Branch Other Other Disease Active 2018-04 Univers depression depression 0-17 it y of 00:00: [place] 00 Medical Branch Cyst of Cyst of Disease Active Univers Bartholin' Bartholin' 8-08 it y of s gland s gland 00:00: [place] 00 Medical Branch Anxiety Anxiety Problem Active 2021-12-18 Me moria (finding) (finding) 02:42:55 l Active [place] Problem [facility] Simple Problem Active 2021-12-18 Darryl nakul obesity obesity 02:42:55 l (disorder) (disorder) He rmann Active [facility] Disease Disease Problem Resolve 2021-12-18 2021-12-18 Memoria caused by caused by d 12-01 02:42:55 02:42:55 l 2018-nCoV nCo 00:00: Herm abe Resolved 00 12/01/2020 Problem [facility] History of Past Illness Condition Condition Condition Status Onset Resolution Last Treating Co mments Source Name Details Category Date Date Treatment Clinician Date 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 Hemorrhage Hemorrhag Problem 2021-05-13 2021-05-13 Memoria of anus e of anus 05-11 22:07:26 22:07:26 l and rectum and rectum 08:16: He rmann 05/11/2021 00 05/13/2021 [facility] Allergies, Adverse Reactions, Alerts Allergy Allergy Status Severity Reaction(s) Onset Inactive Treating Comm ents Source Name Type Date Date Clinician IODINE DRUG Active Rash Univers INGREDI 7- ity of 00:00: [place] 00 Medical Branch Iodine Propensi Active Rash Univers ty to 7 ity of adverse 00:00: [place] reaction 00 Medical s Branch Sulfa Propensi Active Other - See Reports Un ana maría (Sulfona ty to comments 4-19 it only ity o f mide adverse 00:00: makes sx [place] Antibiot reaction 00 worse, Medica l ics) s does not Branch relieve sx. SULFA Drug Active Other-Cmnt Univer s (SULFONA Class 4-19 ity of MIDE 00:00: [place] ANTIBIOT 00 Medical ICS) Branch Penicill Propensi Active Anaphylaxis 2016-04 U nivers ins ty to 2-28 ity of adverse 00:00: [place] reaction 00 Medical s Branch PENICILL Drug Active Anaphylaxis 2016-04 Uni vers INS Class 2-28 ity of 00:00: [place] 00 Medical Branch penicill penicill Active MO^Modera Mem oria in in te l [place] Bactrim Bactrim Active MO^Modera Memor ia te l [place] iodine iodine Active Memoria l [place] Latex Latex Active Memoria l [place] Social History Social Habit Start Date Stop Date Quantity Comments Source History [facility] o f Alcohol Frequency [place] M edical Branch History [facility] o f Alcohol Std Drinks [place] [facility] History [facility] o f Alcohol Binge [place] [facility] Exposure to 2021-08-26 2021-09-05 Not sure [facility] SARS-CoV-2 (event) 00:00:00 17:44:00 [facility] Alcohol intake 2021-09-05 2021-09-05 Ex-drinker University of 00:00:00 00:00:00 (finding) [facility] [place] [facility] Social History 2021-04-28 2021-04-28 [facility] ermann 14:20:35 14:20:35 Tobacco use and 2019-01-16 2019-01-16 Never used Universit y of exposure 00:00:00 00:00:00 [facility] [place] [facility] Cigarettes smoked 2019-01-16 2019-01-16 Univers ity of current (pack per 00:00:00 00:00:00 ) - Reported Branch History of tobacco 2010 2018-04-02 Cigarette Smoker University of use 00:00:00 00:00:00 [facility] [place] [facility] Alcohol Comment 2017-07-19 2017-07-19 socially Universit y of 00:00:00 00:00:00 [facility] [place] [facility] Sex Ass[birth year] At [birth year] Universit y of 00:00:00 00:00:00 [facility] Smoking Status Start Date Stop Date Source Former smoker 2019-01-16 00:00:00 2019-01-16 00:00:00 Universi ty [facility] Medications Ordered Filled Start Stop Current Ordering Indication Dosage Frequency Signature Comments Components Source Medication Medication Date Date Medication? Clinician (SIG) Name Name Robaxin-750 Yes 750 mg = 1 Memoria oral tablet 8-12 tab, PO, l 01:50: Q6H, PRN [place] 00 Spasms, X 7 day, # 28 tab, 0 Refill(s), Pharmacy: [facility] [id number], 165.1, cm, 11/10/21 9:51:00 CDT, Height, 112.273, kg, 11/10/21 9:51:00 CDT, Weight Phenergan No Notes: Do Mem oria 7-27 not give l 18:00: IV push. [place] 00 (Same as: Phenergan) Robaxin-750 Yes 750 mg = 1 Memoria oral tablet 7-27 tab, PO, l 17:00: Q6H, PRN [place] 00 Spasms, X 7 day, # 28 tab, 0 Refill(s), Pharmacy: [facility] [id number], 165.1, cm, 10/24/21 7:17:00 CDT, Height, 114.545, kg, 10/24/21 7:17:00 CDT, Weight [place] Yes 1 tab, PO, Memori a 7.5/325 10-26 Q6H, PRN l oral tablet 17:00: Pain, X 7 H erm day, # 28 tab, 0 Refill(s), Pharmacy: [facility] [id number], 165.1, cm, 10/24/21 7:17:00 CDT, Height, 114.545, kg, 10/24/21 7:17:00 CDT, Weight gabapentin Yes 400 mg = 1 M emoria 400 mg oral 10-26 cap, PO, l capsule 17:00: TID, Day 1: 1 cap daily; Day 2: 1 cap BID, Day 3 and later: 1 cap TID, # 42 cap, 0 Refill(s), Pharmacy: [facility] [id number], 165.1, cm, 10/24/21 7:17:00 CDT, Height, 114.545, kg, 10/24/21 7:17:00 CDT, Weight MiraLax Yes 17 gm, PO, Darryl nakul oral powder 10-26 BID, # 527 l for 17:00: gm, 0 [place] reconstit 00 Refill(s), ion Pharmacy: [facility] [id number], 165.1, cm, 10/24/21 7:17:00 CDT, Height, 114.545, kg, 10/24/21 7:17:00 CDT, Weight Robaxin No Notes: Memoria 7- (Same l 16:52: as:Robaxin ) gabapentin No Notes: Memor ia 400 mg oral 10-26 (Same as: l capsule 16:51: Neurontin) ANES No 10 mg, Memoria hydrALAZINE 10-26 Route: l 16:30: IVP, Q20Min, Dosing Weight 114.545, kg, PRN Elevated BP, Start date: 10/26/21 11:30:00 CDT, Duration: 2 doses or times, Stop date: Limited # of times ANES 2022-0 No 10 mg, Memoria labetalol 10-26 Route: l 16:30: IVP, [place] 00 Q5Min, Dosing Weight 114.545, kg, PRN Elevated BP, Start date: 10/26/21 11:30:00 CDT, Duration: 5 doses or times, Stop date: Limited # of times ANES 2021-0 No 5 mg, Memoria oxyCODONE 5 10-26 Route: PO, l mg 16:30: Drug form: [place] immediate 00 TAB, Q4H, release Dosing tablet Weight 114.545, kg, PRN Pain Score 4-6, Start date: 10/26/21 11:30:00 CDT, Duration: 30 day, Stop date: 11/25/21 11:29:00 CDT ANES 2021-0 No 25 Memoria fentaNYL 10-26 microgram, l 16:30: Route: [place] 00 IVP, Q5Min, Dosing Weight 114.545, kg, PRN Pain Score 4-6, Priority: Routine, Start date: 10/26/21 11:30:00 CDT, Duration: 4 doses or times, Stop date: Limited # of times ANES 2021-0 No 0.5 mg, Memoria HYDROmorpho 10-26 Route: l ne 16:30: IVP, [place] 00 Q5Min, Dosing Weight 114.545, kg, PRN Pain Score 7-10, Start date: 10/26/21 11:30:00 CDT, Duration: 4 doses or times, Stop date: Limited # of times ANES 2021-0 No 0.2 mg, Memoria flumazenil 10-26 Route: l 16:30: IVP, PRN, [place] 00 Dosing Weight 114.545, kg, PRN Benzodiaze pine Reversal, Initial dose, Start date: 10/26/21 11:30:00 CDT, Duration: 30 day, Stop date: 11/25/21 11:29:00 CDT ANES 2021-0 No 0.4 mg, Memoria naloxone 10-26 Route: l 16:30: IVP, [place] 00 Q2MIN, Dosing Weight 114.545, kg, PRN Narcotic Reversal, Start date: 10/26/21 11:30:00 CDT, Duration: 8 doses or times, Stop date: Limited # of times ANES 0 No 2.49 mg, Memoria albuterol 10-26 Route: l 0.083% 16:30: NEB, [place] inhalation 00 Q20Min, solution Dosing Weight 114.545, kg, PRN Wheezing, Start date: 10/26/21 11:30:00 CDT, Duration: 30 day, Stop date: 11/25/21 11:29:00 CDT ANES No 12.5 mg, Memoria diphenhydrA 10-26 Route: l MINE 16:30: IVP, Drug form: INJ, Q6H, Dosing Weight 114.545, kg, PRN Itching, Start date: 10/26/21 11:30:00 CDT, Duration: 30 day, Stop date: 11/25/21 11:29:00 CDT ANES No 4 mg, Memoria ondansetron 10-26 Route: l 16:30: IVP, ONCE, Dosing Weight 114.545, kg, PRN Nausea & Vomiting, Start date: 10/26/21 11:30:00 CDT ANES No 4 mg, Memoria dexamethaso 10-26 Route: l ne 16:30: IVP, ONCE, Dosing Weight 114.545, kg, PRN Nausea & Vomiting, Start date: 10/26/21 11:30:00 CDT Dilaudid No Route: IV, Mem oria (ANES) 10-26 Drug form: l 16:29: INJ, ONCE, Stop date: 10/26/21 11:29:00 CDT ondansetron No Route: IV, Memoria (ANES) 10-26 Drug form: l 16:29: INJ, ONCE, Stop date: 10/26/21 11:29:00 CDT ketOROLAC No IV, ONCE Darryl nakul (ANES) 10-26 l 16:29: 00 lidocaine No Route: IV, Me moria (ANES) 10-26 Drug form: l 16:18: INJ, ONCE, Stop date: 10/26/21 11:18:00 CDT propofol No Route: IV, Mem oria (ANES) 10-26 Drug form: l 16:18: INJ, ONCE, Stop date: 10/26/21 11:18:00 CDT fentaNYL No Route: IV, Mem oria (ANES) 10-26 Drug form: l 16:08: INJ, ONCE, Stop date: 10/26/21 11:08:00 CDT dexamethaso No Route: IV, Memoria ne (ANES) 10-26 Drug form: l 16:08: INJ, ONCE, Stop date: 10/26/21 11:08:00 CDT midazolam No Route: IV, Me moria (ANES) 10-26 Drug form: l 15:58: SOLN, ONCE, Stop date: 10/26/21 10:58:00 CDT Cleocin No Route: IV, Darryl nakul Phosphate 10-26 Drug form: l (ANES) 900 15:47: INJ, Start H ermann mg 00 date: 10/26/21 10:47:00 CDT, Stop date: 10/26/21 11:47:00 CDT Lactated No Route: IV, Mem oria Ringers 10-26 Total l Injection 15:25: Volume: Radha nn IV (ANES) 00 1,000, 1000 mL Start date: 10/26/21 10:25:00 CDT, Stop date: 10/26/21 11:25:00 CDT Lactated No 1,000 mL, Darryl nakul Ringers 10-26 Rate: 75 l Injection 13:35: ml/hr, Khalif n IV 1,000 mL 00 Infuse over: 13.3 hr, Route: IV, Dosing Weight 114.545 kg, Total Volume: 1,000, Start date: 10/26/21 8:35:00 CDT, Duration: 30 day, Stop date: 11/25/21 8:34:00 CDT, BSA: 2.33 m2, 0 Probiotic 2021- Yes PO, Daily, Me moria Formula 7 0 l 17:03: Refill(s) [place] 00 levonorgest 2021- No [id number] 1{devi Univers reL 09-06 e} ity of (MIRENA) 00:00: 22:57 [place] IUD 1 00 :07 [employer] Branch levonorgest 2021- No [id number] 1{devi Univers reL 09-06 e} ity of (LILETTA) 00:00: 23:09 [place] IUD 1 00 :00 [employer] Branch levonorgest 2021- No [id number] 1{devi 1 Device, Univers reL 09-06 e} Intrauteri ity of (LILETTA) 00:00: 23:09 [place], [place]CE, [place] 1 00 :00 1 dose, On [employer]structor 09/05/21 Branch at 1900, Routine tramadol Yes 50 mg = 1 Darryl nakul hydrochlori 1-28 tab, PO, l de 50 MG 21:02: Q6H, PRN Radha nn Oral Tablet 00 Pain, X 7 day, # 28 tab, 0 Refill(s), Pharmacy: [facility] [id number], 165.1, cm, 04/28/21 7:51:00 [employer], Height, 107.273, kg, 04/28/21 7:51:00 [employer], Weight gabapentin Yes 300 mg = 1 M emoria 300 MG Oral 1-28 cap, PO, l Capsule 19:33: TID, Day Khalif n 00 1: 1 cap daily; Day 2: 1 cap BID, Day 3 and later: 1 cap TID, # 42 cap, 0 Refill(s), Pharmacy: [facility] [id number], 165.1, cm, 04/28/21 7:51:00 [employer], Height, 107.273, kg, 04/28/21 7:51:00 [employer], Weight Methocarbam Yes 750 mg = 1 Memoria ol 750 MG 1-28 tab, PO, l Oral Tablet 19:33: Q6H, PRN Karlos rmann [Robaxin] 00 Spasms, X 7 day, # 28 tab, 0 Refill(s), Pharmacy: [facility] [id number], 165.1, cm, 04/28/21 7:51:00 [employer], Height, 107.273, kg, 04/28/21 7:51:00 [employer], Weight POLYETHYLEN 2021-0 Yes 17 gm, PO, Memoria E GLYCOL 04-29 BID, # 527 l 3350 142 19:33: gm, 0 [place] MG/ML Oral 00 Refill(s), Solution Pharmacy: [Miralax] [facility] [id number], 165.1, cm, 04/28/21 7:51:00 [employer], Height, 107.273, kg, 04/28/21 7:51:00 [employer], Weight Acetaminoph 2021-0 Yes 1 tab, PO, Memoria en 300 MG / 04-29 Q4H, PRN l Codeine 19:32: Pain, X 7 Radha nn Phosphate 00 day, # 42 30 MG Oral tab, 0 Tablet Refill(s), [Tylenol Pharmacy: with [facility]] PHARMACY [id number], 165.1, cm, 04/28/21 7:51:00 [employer], Height, 107.273, kg, 04/28/21 7:51:00 [employer], Weight Oxycodone 2021-0 No 10 mg, Memori a 04-29 Route: PO, l 19:14: ONCE, [place] 00 Dosing Weight 107.273, kg, PRN Pain Score 7-10, Start date: 04/29/21 13:14:00 [employer] Labetalol 2021-0 No 10 mg, Memori a 04-29 Route: l 18:46: IVP, [place] 00 Q5Min, Dosing Weight 107.273, kg, PRN Elevated BP, Start date: 04/29/21 12:46:00 [employer], Duration: 5 doses or times, Stop date: Limited # of times Ketorolac 2-0 No 30 mg, Memori a 04-29 Route: l 18:46: IVP, ONCE, [place] 00 Dosing Weight 107.273, kg, Start date: 04/29/21 12:46:00 [employer], Stop date: 04/29/21 12:46:00 [employer] Oxycodone 2-0 No 5 mg, Memoria Hydrochlori 04-29 Route: PO, l de 5 MG 18:46: Drug form: Herm aeb Oral Tablet 00 TAB, Q4H, Dosing Weight 107.273, kg, PRN Pain Score 1-3, Start date: 04/29/21 12:46:00 [employer], Duration: 30 day, Stop date: 05/29/21 12:45:00 [employer] Morphine 2-0 No 2 mg, Memoria 04-29 Route: l 18:46: IVP, [place] 00 Q5Min, Dosing Weight 107.273, kg, PRN Pain Score 4-6, Start date: 04/29/21 12:46:00 [employer], Duration: 5 doses or times, Stop date: Limited # of times Hydromorpho 2-0 No 0.5 mg, Mem oria ne 04-29 Route: l 18:46: IVP, [place] 00 Q5Min, Dosing Weight 107.273, kg, PRN Pain Score 7-10, Start date: 04/29/21 12:46:00 [employer], Duration: 4 doses or times, Stop date: Limited # of times Flumazenil 2-0 No 0.2 mg, Darryl nakul 04-29 Route: l 18:46: IVP, PRN, [place] 00 Dosing Weight 107.273, kg, PRN Benzodiaze pine Reversal, Initial dose, Start date: 04/29/21 12:46:00 [employer], Duration: 30 day, Stop date: 05/29/21 12:45:00 [employer] Naloxone 2-0 No 0.4 mg, Memori a 04-29 Route: l 18:46: IVP, [place] 00 Q2MIN, Dosing Weight 107.273, kg, PRN Narcotic Reversal, Start date: 04/29/21 12:46:00 [employer], Duration: 8 doses or times, Stop date: Limited # of times Albuterol 2-0 No 2.49 mg, Darryl nakul 0.83 MG/ML 04-29 Route: l Inhalant 18:46: NEB, [place] Solution 00 Q20Min, Dosing Weight 107.273, kg, PRN Wheezing, Start date: 04/29/21 12:46:00 [employer]ER, Duration: 30 day, Stop date: 05/29/21 12:45:00 [employer] Diphenhydra 2-0 No 12.5 mg, Me moria mine 04-29 Route: l 18:46: IVP, Drug form: INJ, Q6H, Dosing Weight 107.273, kg, PRN Itching, Start date: 04/29/21 12:46:00 [employer]ER, Duration: 30 day, Stop date: 05/29/21 12:45:00 [employer] Meperidine 0 No 12.5 mg, Mem oria 04-29 Route: l 18:46: IVP, Q30Min, Dosing Weight 107.273, kg, PRN Other -See Comment, For shivering, Start date: 04/29/21 12:46:00 [employer]ER, Duration: 2 doses or times, Stop date: Limited # of times Ondansetron 0 No 4 mg, Memor ia 04-29 Route: l 18:46: IVP, ONCE, Dosing Weight 107.273, kg, PRN Nausea & Vomiting, Start date: 04/29/21 12:46:00 [employer] fentaNYL No Route: IV, Mem oria (ANES) 04-29 Drug form: l 18:41: INJ, ONCE, Stop date: 04/29/21 12:41:00 [employer] propofol 2021-0 No Route: IV, Mem oria (ANES) 04-29 Drug form: l 18:41: INJ, ONCE, Stop date: 04/29/21 12:41:00 [employer] lidocaine 0 No Route: IV, Me moria (ANES) 04-29 Drug form: l 18:41: INJ, ONCE, Stop date: 04/29/21 12:41:00 [employer] cefOXitin 0 No Route: IV, Me moria (ANES) 04-29 Drug form: l 18:41: INJ, ONCE, Stop date: 04/29/21 12:41:00 [employer] ondansetron 0 No Route: IV, Memoria (ANES) 04-29 Drug form: l 18:41: INJ, ONCE, Stop date: 04/29/21 12:41:00 B[employer]ER ketOROLAC 2021-0 No IV, ONCE Darryl nakul (ANES) 04-29 l 18:41: midazolam No Route: IV, Me moria (ANES) 04-29 Drug form: l 18:40: SOLN, [place] 00 ONCE, Stop date: 04/29/21 12:40:00 [employer]ALL [employer]ER Lactated No Route: IV, Mem oria Ringers 04-29 Total l Injection 17:52: Volume: Radha nn IV (ANES) 00 1,000, 1000 mL Start date: 04/29/21 11:52:00 BASKET[employer]ALL [employer]ER, Stop date: 04/29/21 12:52:00 [employer]ER Calcium No 1,000 mL, Memor ia Chloride 04-29 Rate: 75 l 0.0014 15:40: ml/hr, [place] MEQ/ML / 00 Infuse Potassium over: 13.3 Chloride hr, Route: 0.004 IV, Dosing MEQ/ML / Weight Sodium 107.273 Chloride kg, Total 0.103 Volume: MEQ/ML / 1,000, Sodium Start Lactate date: 0.028 04/29/21 MEQ/ML 9:40:00 Injectable [employer]ER, Solution Duration: 30 day, Stop date: 05/29/21 9:39:00 [employer]ER, BSA: 2.25 m2 doxycycline Yes 50mg Take 50 mg Univers 50 mg 8-04 by mouth ity of capsule 11:17: every 12 [place] [id number] (twelve) Medical hours. Branch pantoprazol Yes Take by Uni vers e sodium 8-04 mouth. ity of (PANTOPRAZO 11:17: [place] LE ORAL) Medical Branch linaCLOtide Yes Take by Uni vers (LINZESS) 8-04 mouth. ity of 145 mcg 11:17: [place] capsule Medical Branch FLUoxetine Yes 10mg Take 10 mg U nivers (PROZAC) 10 8-04 by mouth ity of mg capsule 11:17: daily. [address] acetaminoph Yes 1{tbl} Take 1 Un ana maría en-codeine 8-14 tablet by ity of 300-30 mg 00:00: mouth [place] tablet 00 every 6 Medical (six) Branch hours as needed for Pain (scale 7-10). Immunizations Ordered Filled Immunization Date Status Comments [facility] e Immunization Name Name TDAP (ADACEL) 2014-05-31 Completed [place] of VACCINE 00:00:00 [facility] Vital Signs Vital Name Observation Time Observation Value Comments Source Systolic blood 2021-09-05 22:46:00 118 mm[Hg] Univer sity of pressure [facility] Diastolic blood 2021-09-05 22:46:00 76 mm[Hg] Unive rsity of [facility] Heart rate 2021-09-05 22:46:00 78 /min [facility] Body temperature 2021-09-05 22:45:00 36.56 [facility] 2021-09-05 22:45:00 16 /min [facility] Body height 2021-09-05 22:45:00 165.1 cm [facility] Body weight 2021-09-05 22:45:00 111.585 kg [facility] BMI 2021-09-05 22:45:00 40.94 kg/m2 [facility] Heart Rate 2021-12-15 14:37:00 [facility] [place] Systolic (mm Hg) 2021-12-15 14:37:00 Darryl rial [place] Diastolic (mm Hg) 2021-12-15 14:37:00 Mem orial [place] Height 2021-12-15 14:37:00 165.1 cm [facility] [place] Weight 2021-12-15 14:37:00 [facility] [place] BMI Calculated 2021-12-15 14:37:00 Memori al [place] Heart Rate 2021-11-10 14:51:00 [facility] [place] Systolic (mm Hg) 2021-11-10 14:51:00 Darryl rial [place] Diastolic (mm Hg) 2021-11-10 14:51:00 Mem orial [place] Height 2021-11-10 14:51:00 165.1 cm [facility] [place] Weight 2021-11-10 14:51:00 [facility] [place] BMI Calculated 2021-11-10 14:51:00 Memori al [place] Respitory Rate 2021-10-26 19:30:00 Memori al [place] Systolic (mm Hg) 2021-10-26 19:30:00 Darryl rial [place] Diastolic (mm Hg) 2021-10-26 19:30:00 Mem orial [place] Respitory Rate 2021-10-26 19:15:00 Memori al [place] Systolic (mm Hg) 2021-10-26 19:15:00 Darryl rial [place] Diastolic (mm Hg) 2021-10-26 19:15:00 Mem orial [place] Respitory Rate 2021-10-26 19:00:00 Memori al [place] Systolic (mm Hg) 2021-10-26 19:00:00 Darryl rial [place] Diastolic (mm Hg) 2021-10-26 19:00:00 Mem orial [place] Height 2021-10-24 12:17:00 165.1 cm [facility] [place] Weight 2021-10-24 12:17:00 [facility] [place] BMI Calculated 2021-10-24 12:17:00 Memori al [place] Height 2021-10-18 18:13:00 165.1 cm [facility] [place] Weight 2021-10-18 18:13:00 [facility] [place] BMI Calculated 2021-10-18 18:13:00 Memori al [place] Heart Rate 2021-10-13 16:22:00 [facility] [place] Systolic (mm Hg) 2021-10-13 16:22:00 Darryl rial [place] Diastolic (mm Hg) 2021-10-13 16:22:00 [facility] [place] Height 2021-10-13 16:22:00 165.1 cm [facility] Weight 2021-10-13 16:22:00 [facility] BMI Calculated 2021-10-13 16:22:00 [facility] Heart Rate 2021-05-19 14:28:00 [facility] Systolic (mm Hg) 2021-05-19 14:28:00 [facility] Diastolic (mm Hg) 2021-05-19 14:28:00 [facility] Height 2021-05-19 14:28:00 165.1 cm [facility] Weight 2021-05-19 14:28:00 [facility] BMI Calculated 2021-05-19 14:28:00 [facility] [place] Systolic (mm Hg) 2021-05-11 09:25:00 [facility] [place] Diastolic (mm Hg) 2021-05-11 09:25:00 [facility] Respitory Rate 2021-05-11 09:25:00 [facility] Heart Rate 2021-05-11 09:25:00 [facility] [place] Height 2021-05-11 05:52:00 165.1 cm [facility] BMI Calculated 2021-05-11 05:52:00 [facility] [place] Weight 2021-05-11 05:52:00 [facility] [place] Systolic (mm Hg) 2021-05-11 05:52:00 Darryl rial [place] Diastolic (mm Hg) 2021-05-11 05:52:00 Mem orial [place] Heart Rate 2021-05-11 05:52:00 [facility] [place] Respitory Rate 2021-05-11 05:52:00 [facility] Temperature Oral (F) 2021-05-11 05:52:00 97.8 F [facility] Respitory Rate 2021-04-29 19:58:00 [facility] [place] Systolic (mm Hg) 2021-04-29 19:58:00 Darryl [facility] [place] Diastolic (mm Hg) 2021-04-29 19:58:00 Mem [facility] [place] Respitory Rate 2021-04-29 19:08:00 [facility] [place] Systolic (mm Hg) 2021-04-29 19:08:00 Darryl rial [place] Diastolic (mm Hg) 2021-04-29 19:08:00 Mem orial [place] Respitory Rate 2021-04-29 19:00:00 [facility] [place] Systolic (mm Hg) 2021-04-29 19:00:00 Darryl rial [place] Diastolic (mm Hg) 2021-04-29 19:00:00 [facility] [place] Heart Rate 2021-04-29 15:58:00 [facility] Height 2021-04-28 13:51:00 165.1 cm [facility] [place] Weight 2021-04-28 13:51:00 [facility] [place] BMI Calculated 2021-04-28 13:51:00 [facility] [place] Heart Rate 2021-04-27 21:38:00 [facility] Systolic (mm Hg) 2021-04-27 21:38:00 Darryl [facility] [place] Diastolic (mm Hg) 2021-04-27 21:38:00 Mem o[facility] [place] Height 2021-04-27 21:38:00 165.1 cm [facility] [place] Weight 2021-04-27 21:38:00 Sathya Cordovaann BMI Calculated 2021-04-27 21:38:00 Janis Garza Procedures Procedure Date / Time Performed Performing Clinician Sour e Anoscopy; diagnostic, 2021-10-13 17:03:00 Janis Garaz including collection of specimen(s) by brushing or washing, when performed (separate procedure) Chemical cauterization of 2021-05-19 14:58:00 Ut morisourav Moody granulation tissue (ie, proud flesh) Epidural block<sup>1</sup> [facility] Tonsillectomy and [facility]ha nn adenoidectomy Anal fistulotomy Sathya Cuadra n Drainage of [facility] gland Encounters Start End Encounter Admission Attending Care Care Encounter Source Date/Time Date/Time Type Type Clinicians Facility Department ID 2021-01-29 Outpatient [facility] COMPLIANCE TESTING ANALYST [id number] [facility] 20:[facility]-28 Emergency [facility] [id number] Univers 08:49:[facility] 2021-12-15 2021-12-16 Outpatient nullFlavo [facility] Multi 55 [id number] Memoria 14:30:00 04:59:59 r Specialty 07 gretchen Moody 2021-12-15 2021-12-15 Outpatient MINI Palacio [facility] [id number] 09:30:00 23:59:59 Mohummed 07 Nelson 2021-12-15 2021-12-15 Outpatient KELVIN WARREN [id number] Memoria 09:30:00 09:30:00 07 gretchen Moody 2021-11-10 2021-11-11 Outpatient nullFlavo [facility] Multi 55 [id number] Memoria 14:45:00 04:59:59 r Specialty 06 gretchen Moody 2021-11-10 2021-11-10 Outpatient MINI Palacio [facility] [id number] 09:45:00 23:59:59 Mohummed 06 Nelson 2021-11-10 2021-11-10 Outpatient KELVIN WARREN [id number] Memoria 09:45:00 09:45:00 06 gretchen Moody 2021-10-26 2021-10-26 Day nullFlavo [facility] [id number] Memoria 13:09:00 19:42:00 Surgery [facility] 02 [facility] 2021-10-26 2021-10-26 Outpatient PIA, MHBL MHBL [id number] MHBL 08:09:00 14:42:00 MOHUMMED 2021-10-26 2021-10-26 Outpatient Pia, MHPL MHPL [id number] 08:09:00 14:42:00 [facility] 2021-10-26 2021-10-26 Outpatient Pia, MHPL MHPL [id number] 08:09:00 14:42:00 Mohummed 02 [facility] 2021-10-26 2021-10-26 Outpatient MHIE MHIE [id number] Memoria 10:30:00 10:30:00 05 [facility] 2021-10-17 2021-10-17 Outpatient Clay LONGORIA [facility] [id number] [facility] 08:15:00 08:15:00 ROSNDA ity o [facility] 2021-10-17 2021-10-17 Outpatient Clay LONGORIA [facility] [id number] [facility] 08:15:00 08:15:00 [facility] 2021-10-13 2021-10-[address] [facility] 55 [id number] Memoria 15:45:00 04:59:59 r Specialty 04 [facility] 2021-10-13 2021-10-13 Outpatient Pia, MHMG MG [id number] 10:45:00 23:59:59 Mohummed 04 [facility] 2021-10-13 2021-10-13 Outpatient MHIE MHIE [id number] Memoria 10:45:00 10:45:00 04 [facility] 2021-09-05 2021-09-05 Outpatient Clay LONGORIA [facility] [id number] Univers 17:30:00 18:08:47 [facility] 2021-09-05 2021-09-05 Office LongoriaRUST 1.2.840.114 [id number] Univers 17:30:00 18:08:47 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 350.1.13.10 ity of [facility] 4.2.7.2.686 Ced as MATERNAL [phone] Med ical & CHILD [address] [place] [address] 2021-09-05 2021-09-05 Outpatient Clay VON [facility] [id number] Univers 17:30:00 18:08:47 ANNIEPIETRO ity o f [facility] 2021-09-05 2021-09-05 Orders Doctor DALLIN 1.2.840.114 [id number] Univers 00:00:00 00:00:00 Only Unassigned, YONATAN 350.1.13.10 ity of [place] [facility] 4.2.7.2.686 Ced as [phone] [address] 2021-08-18 2021-08-18 Ambulatory nullFlavo [facility] Multi 55 [id number] Memoria 15:00:00 15:00:00 Pre-Reg r Specialty 03 l Phil [place] 2021-08-18 2021-08-18 Outpatient Pia, MHMG MHMG [id number] 10:00:00 10:00:00 Mohummed [facility] 2021-08-18 2021-08-18 Outpatient MHIE MHIE [id number] Memoria 08:30:00 08:30:00 03 gretchen Moody 2021-06-10 2021-06-12 Phone nullFlavo [facility] Multi [id number] Memoria 15:15:33 05:59:59 Message r Specialty 00 l Phil Moody 2021-06-10 2021-06-11 Outpatient MHMG MHMG [id number] 09:15:33 23:59:59 00 2021-05-19 2021-05-20 Outpatient nullFlavo [facility] Multi 55 [id number] Memoria 14:00:00 05:59:59 r Specialty 02 l Phil Moody 2021-05-19 2021-05-19 Outpatient Pia, MHMG MHMG [id number] 08:00:00 23:59:59 Mohummed [facility] 2021-05-19 2021-05-19 Outpatient MHIE MHIE [id number] Memoria 08:00:00 08:00:00 02 [place] 2021-05-11 2021-05-11 Emergency nullFlavo [facility] [id number] Memoria 05:46:19 09:29:00 [place] 01 l [facility] 2021-05-10 2021-05-11 Outpatient Naveen, MHPL MHPL [id number] 23:46:19 03:29:00 Reeva 01 Jose Maria 2021-05-10 2021-05-11 Emergency E NAVEEN, MHBL MHBL [id number] MHBL 23:46:00 03:29:00 REEVA 2021-04-29 2021-04-29 Day nullFlavo [facility] [id number] Memoria 15:28:00 20:15:00 Surgery [place] [address] [facility] 2021-04-29 2021-04-29 Outpatient Pia, MHSE MHSE [id number] 09:28:00 14:15:00 [facility]ummed [facility] 2021-04-29 2021-04-29 Outpatient Khani, MHSE MHSE [id number] 09:28:00 14:15:00 Mohummed [facility] 2021-04-29 2021-04-29 Outpatient KHANI, MHSE MHSE [id number] 09:28:00 14:15:00 MOHUMMED [facility] 2021-04-29 2021-04-29 Outpatient MHIE MHIE [id number] Memoria 11:30:00 11:30:00 01 [facility] 2021-04-27 2021-04-28 Outpatient nullFlavo [facility] 55 [id number] Memoria 21:15:00 05:59:59 r Specialty 00 [facility] 2021-04-27 2021-04-27 Outpatient Khani, MHMG MHMG [id number] 15:15:00 23:59:59 Mohummed 00 [facility] 2021-04-27 2021-04-27 Outpatient MHIE MHIE [id number] Memoria 15:15:00 15:15:00 00 [facility] 2020-11-03 2020-11-03 Office [facility] 1.2.840.[id number] [place] [address] 10:18:48 12:09:43 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 350.1.13.10 ity of [facility] 4.2.7.2.686 Ced as MATERNAL [phone] Med ical & CHILD [address] [place] [address] 2020-11-03 2020-11-03 [facility] [id number] Univers 10:30:00 10:30:00 ANNIEPIETRO arcos o [facility] 2020-11-03 2020-11-03 Outpatient R [facility] [id number] Univers 08:15:00 08:15:00 ANNIEPIETRO narvaez [facility] 2020-06-22 2020-06-22 Patient Seun [facility] 1.2.840.114 [id number] Univers 00:00:00 00:00:00 Outreach [facility] 350.1.13.10 i ty of [facility] [place] [id number] Ut dical [address] 2020-06-11 2020-06-11 Outpatient R [facility] [id number] Univers 13:00:00 13:00:00 ity of [facility] 2020-05-28 2020-05-28 Hospital Barbara Saab [id number] Univers 05:05:00 11:48:00 Encounter Pastor Graham 350.1.13.10 ity of [facility] 4.2.7.2.686 Ced as [phone] [facility] [address] [place] 2020-05-28 2020-05-28 Orders Doctor DALLIN 1.2.840.114 [id number] Univers 00:00:00 00:00:00 Only Unassigned, YONATAN 350.1.13.10 ity of [place] [facility] 4.2.7.2.686 Ced as [phone] [facility] [address] [place] 2020-05-27 2020-05-27 Laboratory Only, [facility] Test UNIVERSIT 1.2.84 0.114 [id number] Univers 15:54:09 16:09:09 Only Pastor Saab [facility] 350.1.13.10 ity [place] [id number] [facility] [address] [place] 2020-05-27 2020-05-27 Outpatient R [facility] [id number] Univers 16:00:00 16:00:00 [facility] 2020-04-30 2020-04-30 Office [place], [facility] Resident UNIVERSIT 1.2.8 40.114 [id number] Univers 14:17:56 15:57:41 Visit Pastor Saab HEALTH 350.1.13.10 ity [place] [id number] [address] 2020-04-30 2020-04-30 Outpatient R [facility] [id number] Univers 14:15:00 14:15:00 [place] ity [facility] 2020-04-12 2020-04-12 Telephone Young Faust UNIVERSIT 1.2.840.114 [id number] Univers 00:00:00 00:00:00 Y HEALTH 350.1.13.10 i ty [place] [id number] [address] 2020-04-07 2020-04-07 Office [place], [facility] Resident UNIVERSIT 1.2.8 40.114 [id number] Univers 14:13:55 15:07:04 Visit Yani Peralta HEALTH 350.1.13. 10 ity [place] [id number] [address] 2020-04-07 2020-04-07 Outpatient R [facility] [id number] Univers 14:00:00 14:00:00 ity [facility] 2020-03-05 2020-03-05 Telephone MARICHUY Martinez 1.2.840.114 [id number] Univers 00:00:00 00:00:00 [facility] Y HEALTH 350.1.13.10 i ty [place] [id number] [address] 2020-02-28 2020-02-28 Case CLAYTON MartinezIT 1.2.290.392 [id number] Univers 00:00:00 00:00:00 Management Nevaeh Y HEALTH 350.1.13.10 ity [place] [id number] [address] 2020-02-28 2020-02-28 Orders Doctor DALLIN 1.2.840.114 [id number] Univers 00:00:00 00:00:00 Only Unassigned, YONATAN 350.1.13.10 ity of [place] [facility] 4.2.7.2.686 Ced as [id number] [address] 2020-02-19 2020-02-19 Outpatient R YOUNG FAUST [facility] [id number] Univers 13:00:00 13:00:00 ity of [facility] 2019-10-28 2019-10-30 Office Res-Colpo/L UNIVERSIT 1.2.840.114 [id number] 10:03:42 10:59:07 Visit eep, Y HEALTH 350.1.13.10 [facility] CLINICS 4.2.7.2.686 [id number] [facility] 2019-10-28 2019-10-30 Office Res-Colpo/Le[place], [facility] UNIVERSI T 1.2.840.114 [id number] Univers 10:03:42 10:59:07 Visit Pastor Saab L Y HEALTH 350.1.13.10 ity [place] [id number] [address] 2019-10-29 2019-10-29 Office Pool, [facility] Resident UNIVERSIT 1.2.8 40.114 [id number] Univers 14:15:21 15:43:38 Visit [facility] Pastor L Y HEALTH 350.1.13.10 ity of [place] [id number] [address] 2019-10-29 2019-10-29 Outpatient R [facility] [id number] Univers 14:15:00 14:15:00 ity of [facility] 2019-10-29 2019-10-29 Orders Doctor ZAMARRIPA 1.2.840.114 [id number] 00:00:00 00:00:00 Only Unassigned, YONATAN 350.1.13.10 [place] [facility] 4.2.7.2.686 [phone] [id number] 2019-10-29 2019-10-29 Orders Doctor DALLIN 1.2.840.114 [id number] Univers 00:00:00 00:00:00 Only Unassigned, YONATAN 350.1.13.10 ity of [place] [facility] 4.2.7.2.686 [facility] [id number] [facility] [address] 2019-10-28 2019-10-28 Outpatient R [facility] [id number] Univers 10:00:00 10:00:00 ity [facility] 2019-10-26 2019-10-26 Emergency [facility] 1.2.624.510 [id number] Univers 01:04:14 01:05:00 Sofiya Dickson 350.1.13.10 ity [facility] 4.2.7.2.686 [facility] [id number] [facility] [address] 2019-09-02 2019-09-02 Outpatient R [facility] [id number] Univers 09:00:00 09:00:00 ity [facility] 2019-08-21 2019-08-21 Outpatient R [facility] [id number] Univers 10:00:00 10:00:00 [facility] Results Test Description Test Time Test Comments Results Result Comments Source IMMUNOLOGY 2021-10-24 12:17:00 Test Item Value Reference Range Interpretation Comme nts Coronavirus (COVID-19) SONG (test code = Not Detected *NA*(10/24/21 7 :17 AM) Coronavirus (COVID-19) SONG) [facility]2022-07-25 12:17:00 Test Item Value Reference Range Interpretation Comments U Preg (test code = U Negative (10/24/21 7:17 Preg) AM) [facility] [employer] [id number] 07:05:00 Test Item Value Reference Range Interpretation Comments Chloride Lvl (test code = Chloride Lvl) 104 95-109 [facility] [employer] [id number] 07:05:00 Test Item Value Reference Range Interpretation Comments CO2 (test code = CO2) 26 24-32 [facility] [employer] [id number] 07:05:00 Test Item Value Reference Range Interpretation Comments Calcium Lvl (test code = Calcium Lvl) 9.0 8.5-10.5 [facility] [id number] 07:05:00 Test Item Value Reference Range Interpretation Comments Total Protein (test code = Total 7.9 6.4-8.4 Protein) [place] [id number] 07:05:00 Test Item Value Reference Range Interpretation Comments Albumin Lvl (test code = Albumin Lvl) 3.6 3.5-5.0 [facility] [id number] 07:05:00 Test Item Value Reference Range Interpretation Comments ALT (test code = ALT) 18 See_Comment [Auto mated message] The system which ge nerated this result transmit viji reference range : <=65. The reference range was not used to interpr et this result as brent l/abnormal. [facility] [id number] 07:05:00 Test Item Value Reference Range Interpretation Comments AST (test code = AST) 14 See_Comment [Auto mated message] The system which ge nerated this result transmit viji reference range : <=37. The reference range was not used to interpr et this result as brent l/abnormal. [facility] [id number] 07:05:00 Test Item Value Reference Range Interpretation Comments Alk Phos (test code = Alk Phos) 75 39-136 [facility] [id number] 07:05:00 Test Item Value Reference Range Interpretation Comments Bili Total (test code = Bili Total) 0.2 0.2-1.3 [facility] [id number] 07:05:00 Test Item Value Reference Range Interpretation Comments AGAP (test code = AGAP) 12.8 10.0-20.0 [facility] [id number] 07:05:00 Test Item Value Reference Range Interpretation Comments B/C Ratio (test code = B/C Ratio) 16 1 6-25 [facility] [id number] 07:05:00 Test Item Value Reference Range Interpretation Comments Globulin (test code = Globulin) 4.3 2.7-4.2 [facility] [id number] 07:05:00 Test Item Value Reference Range Interpretation Comments A/G Ratio (test code = A/G Ratio) 0.8 1 0.7-1.6 [facility]2022-02-09 07:05:00 Test Item Value Reference Range Interpretation Comments eGFR (test code = eGFR) 84 [facility]GdtijdiCGBMUBMTFGKIU2594-95-76 07:05:00 Test Item Value Reference Range Interpretation Comments S Preg (test code = S Negative *NA*(05/11/21 Preg) 1:05 AM) [facility]TbnlfhwSPIVSKBTFW1025-78-02 07:05:00 Test Item Value Reference Range Interpretation Comments Segs (test code = Segs) 61.9 45.0-75.0 [facility]landAxixpmrOQKCHNLPRR7759-34-00 07:05:00 Test Item Value Reference Range Interpretation Comments Lymphocytes (test code = Lymphocytes) 29.0 20.0-40.0 [facility]landMlcnuonWIPHKEXIQE7677-87-26 07:05:00 Test Item Value Reference Range Interpretation Comments Monocytes (test code = Monocytes) 7.2 2.0-12.0 [facility]landHrtczpdOPDSAAGPNW6381-89-20 07:05:00 Test Item Value Reference Range Interpretation Comments Eosinophils (test code = 1.3 See_Comment [A utomated message] The Eosinophils) system which ge nerated this result tra nsmitted reference range : <=4.0. The reference r bishnu was not used to int erpret this result as normal/abnormal . [facility]landUpuwmfaHLVPFFFLJE2648-72-20 07:05:00 Test Item Value Reference Range Interpretation Comments Basophils (test code = 0.6 See_Comment [Aut omated message] The Basophils) system which ge nerated this result tra nsmitted reference range : <=1.0. The reference r bishnu was not used to int erpret this result as normal/abnormal . [facility]landCirjrcwHOXVKHMIYE8813-14-06 07:05:00 Test Item Value Reference Range Interpretation Comments Neutrophils # (test code = Neutrophils 7.6 1.5-8.1 #) [facility]landBepcrhiATOEMKGAZS5674-28-19 07:05:00 Test Item Value Reference Range Interpretation Comments Lymphocytes # (test code = Lymphocytes 3.6 1.0-5.5 #) [id number] 07:05:00 Test Item Value Reference Range Interpretation Comments Monocytes # (test code 0.9 See_Comment [Aut omated message] The = Monocytes #) system which generated this result tra nsmitted reference range : <=0.8. The reference r bishnu was not used to int erpret this result as normal/abnormal . [facility] CenterIqnwvpeKYLQOVDJYD9905-97-80 07:05:00 Test Item Value Reference Range Interpretation Comments Eosinophils # (test code 0.2 See_Comment [A utomated message] The = Eosinophils #) system whic h generated this result tra nsmitted reference range : <=0.5. The reference r bishnu was not used to int erpret this result as normal/abnormal . [facility] CenterQmuboouXKHIKBNGYC3703-72-79 07:05:00 Test Item Value Reference Range Interpretation Comments Basophils # (test code 0.1 See_Comment [Aut omated message] The = Basophils #) system which generated this result tra nsmitted reference range : <=0.2. The reference r bishnu was not used to int erpret this result as normal/abnormal . [facility] CenterTkrrfdjEECJFFXQYX7404-94-04 07:05:00 Test Item Value Reference Range Interpretation Comments WBC (test code = WBC) 12.3 3.7-10.4 [facility]landGgcprtbSYICFWIEKL5469-96-24 07:05:00 Test Item Value Reference Range Interpretation Comments RBC (test code = RBC) 4.24 4.20-5.40 [facility] CenterLqwdkdtQNRMNKFZJA2139-63-21 07:05:00 Test Item Value Reference Range Interpretation Comments Hgb (test code = Hgb) 13.1 12.0-16.0 [facility] TexasFoomaotKKHDGBRKYY9036-28-81 07:05:00 Test Item Value Reference Range Interpretation Comments Hct (test code = Hct) 37.4 36.0-48.0 [facility] CenterIlvrneqTQYXPUFJNY6040-81-34 07:05:00 Test Item Value Reference Range Interpretation Comments MCV (test code = MCV) 88.1 80.0-98.0 [facility] CenterCvierneGBXIXCRLFO9503-77-39 07:05:00 Test Item Value Reference Range Interpretation Comments MCH (test code = MCH) 30.8 pg 27.0-31.0 [facility] TexasWjlkwnhUIVXKXSWTQ5573-58-79 07:05:00 Test Item Value Reference Range Interpretation Comments MCHC (test code = MCHC) 34.9 32.0-36.0 [facility]landOtxlricEJGFXIHDMK5768-58-53 07:05:00 Test Item Value Reference Range Interpretation Comments RDW (test code = RDW) 12.5 11.5-14.5 [facility]landOtzyhliXOYUMGWRMW7074-44-13 07:05:00 Test Item Value Reference Range Interpretation Comments Platelet (test code = Platelet) 278 133-450 [facility] PearlandRucgtdfJDZYIAIUUH0065-24-05 07:05:00 Test Item Value Reference Range Interpretation Comments MPV (test code = MPV) 9.6 7.4-10.4 [facility] [id number] 07:05:00 Test Item Value Reference Range Interpretation Comments Glucose Lvl (test code = Glucose Lvl) 114 70-99 [facility]2022-02-09 07:05:00 Test Item Value Reference Range Interpretation Comments BUN (test code = BUN) 15 7-22 [facility]2022-02-09 07:05:00 Test Item Value Reference Range Interpretation Comments Creatinine Lvl (test code = Creatinine 0.94 0.50-1.40 Lvl) [facility] [id number] 07:05:00 Test Item Value Reference Range Interpretation Comments Sodium Lvl (test code = Sodium Lvl) 139 135-145 [facility] [id number] 07:05:00 Test Item Value Reference Range Interpretation Comments Potassium Lvl (test code = Potassium 3.8 3.5-5.1 Lvl) [facility] [id number] 15:41:00 Test Item Value Reference Range Interpretation Comments U Preg (test code = U Negative (04/29/21 9:41 Preg) AM) [facility] CenterAdxnfqrDFMUAZEUHG0567-09-14 14:10:00 Test Item Value Reference Range Interpretation Comments Coronavirus (COVID-19) Not Detected (04/28/21 SONG (test code = 8:10 AM) Coronavirus (COVID-19) SONG) [facility]
[2022-04-04 21:13] LABS: SARS-COV-2 RT PCR NEGATIVE (NEGATIVE)
[2022-04-04 21:17] LABS: Urine Blood Negative (Negative); Urine Glucose Negative (Negative); Urine Protein Negative (Negative); Urine Specific Gravity 1.025 (1.005-1.030); Urine pH 6.5 (5.0-7.0)
[2022-04-04] MEDS ORDERED: BENZONATATE 100 MG CAP PO ONE (21:37)
[2022-04-04] MEDS ORDERED: IBUPROFEN 400 MG TAB ONE (21:37)
--- NOTE | 2022-04-04 22:10 | RAD REPORT ---
EXAM DESCRIPTION: RAD - Chest Pa And Lat (2 Views) - 04/04/2022 9:36 pm CLINICAL HISTORY: COUGH COMPARISON: <Comparisons> FINDINGS: Lines: None. Lungs: No evidence of edema or pneumonia. Pleural: No significant pleural effusions or pneumothorax. Cardiac: The heart size is within normal limits. Mediastinum: Within normal limits. Bones: No acute fractures. Other: None IMPRESSION: No acute cardiopulmonary disease.
--- NOTE | 2022-04-04 22:26 | EDPHYS ---
Physician Documentation [facility] Name: Ben Rosa Age: 26 yrs Sex: Female : 1995 Arrival Date: 04/04/2022 Time: 20:08 Bed 16 Private MD: ED Physician Lissy Hodge HPI: 04/04 20:30 This 26 yrs old Female presents to ER via Ambulatory with complaints of Allergy cp Symptoms, Cough, Wheezing > 1 Year. 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 - Social history:: Smoking status: Patient denies any tobacco usage or history of. ROS: 20:35 Constitutional: Negative for body aches, chills, fever, poor PO intake. cp 20:35 Eyes: Negative for injury, pain, redness, and discharge. cp 20:35 ENT: Positive for sore throat, Negative for drainage from ear(s), ear pain, difficulty swallowing, difficulty handling secretions. 20:35 Cardiovascular: Negative for chest pain, edema, palpitations. 20:35 Respiratory: Positive for cough, "sounds productive", Negative for shortness of breath, wheezing. 20:35 Abdomen/GI: Negative for abdominal pain, diarrhea, constipation, active vomiting. 20:35 Back: Negative for pain at rest, pain with movement. 20:35 Skin: Negative for cellulitis, rash. 20:35 Neuro: Negative for altered mental status, dizziness, headache, weakness. 20:35 All other systems are negative. Exam: 20:40 Constitutional: The patient appears in no acute distress, alert, awake, non-toxic, well cp developed, well nourished, obese. 20:40 Head/Face: Normocephalic, atraumatic. cp 20:40 Eyes: Periorbital structures: appear normal, Conjunctiva: normal, no exudate, no injection, Sclera: no appreciated abnormality, Lids and lashes: appear normal, bilaterally. 20:40 ENT: External ear(s): are unremarkable, Ear canal(s): are normal, clear, TM's: bulging, is not appreciated, bilaterally, dullness, bilaterally, erythema, is not appreciated, bilaterally, Nose: nasal drainage, that is minimal, Mouth: Lips: moist, Oral mucosa: moist, Posterior pharynx: Airway: no evidence of obstruction, patent, Tonsils: no enlargement, no exudate, Uvula: midline, swelling, is not appreciated, erythema, that is mild, exudate, is not appreciated, Voice: is normal. 20:40 Neck: ROM/movement: is normal, is supple, without pain, no range of motions limitations, no meningismus, Lymph nodes: no appreciated lymphadenopathy. 20:40 Chest/axilla: Inspection: normal, Palpation: is normal, no crepitus, no tenderness. 20:40 Cardiovascular: Rate: normal, Rhythm: regular, Edema: is not appreciated, JVD: is not appreciated. 20:40 Respiratory: the patient does not display signs of respiratory distress, Respirations: normal, no use of accessory muscles, no retractions, labored breathing, is not present, Breath sounds: decreased breath sounds, are not appreciated, rhonchi, are not appreciated, stridor, is not appreciated, wheezing: is not appreciated. 20:40 Abdomen/GI: Exam negative for discomfort, distension, guarding, Inspection: abdomen appears normal. 20:40 Back: pain, is absent, ROM is normal. 20:40 Skin: cellulitis, is not appreciated, no rash present. Vital Signs: 20:17 BP 113 / 75; Pulse 75; Resp 18; Temp 99.2; Pulse Ox 99% ; Weight 112.04 kg; Height 5 tw5 ft. 4 in. (162.56 cm); Pain 2/10; 21:30 BP 115 / 74; Pulse 67; Resp 17; Pulse Ox 100% on R/A; ll3 20:17 Body Mass Index 42.40 (112.04 kg, 162.56 cm) tw5 MDM: 21:13 Patient medically screened. cp 22:25 Data reviewed: vital signs, nurses notes, lab test result(s), radiologic studies, plain cp films. 22:25 Antibiotic administration: Not indicated, the patient has a suspected viral illness. cp Test interpretation: by ED physician or midlevel provider: plain radiologic studies. Counseling: I had a detailed discussion with the patient and/or guardian regarding: the historical points, exam findings, and any diagnostic results supporting the discharge/admit diagnosis, lab results, radiology results, to return to the emergency department if symptoms worsen or persist or if there are any questions or concerns that arise at home. Response to treatment: the patient's symptoms have mildly improved after treatment, and as a result, I will discharge patient. 04/04 20:22 Order name: Strep; Complete Time: 22:21 tw5 04/04 22:21 Interpretation: Reviewed. cp 04/04 20:22 Order name: COVID-19/FLU A+B; Complete Time: 22:21 tw5 04/04 22:21 Interpretation: Reviewed. cp 04/04 20:51 Order name: Throat Culture EDME 04/04 21:17 Order name: Urine Dipstick-Ancillary; Complete Time: 22:21 EDME 04/04 21:24 Order name: XRAY Chest Pa And Lat (2 Views); Complete Time: 22:21 cp 04/04 20:23 Order name: Urine Dipstick-Ancillary (obtain specimen); Complete Time: 21:21 tw5 04/04 20:23 Order name: Urine Test (obtain specimen); Complete Time: 21:21 tw5 Administered Medications: 21:43 Drug: Ibuprofen 800 mg Route: PO; ll3 22:36 Follow up: Response: No adverse reaction ll3 21:43 Drug: Tessalon Perle (benzonatate) 200 mg Route: PO; ll3 22:36 Follow up: Response: No adverse reaction ll3 Disposition Summary: 04/04/22 22:25 Discharge Ordered Location: Home cp Problem: new cp Symptoms: have improved cp Condition: Stable cp Diagnosis - Cough cp - Acute nasopharyngitis [common cold] cp Followup: cp - With: Private Physician - When: 2 - 3 days - Reason: Worsening of condition Discharge Instructions: - Discharge Summary Sheet cp - Pharyngitis cp - Sore Throat cp - Cough, Adult cp Forms: - Medication Reconciliation Form cp - Thank You Letter cp - Antibiotic Education cp - Prescription Opioid Use cp - Work release form ll3 Prescriptions: - Bromfed DM 2-30-10 mg/5 mL Oral syrup - take 10 milliliter by ORAL route every 6 hours; 180 milliliter; Refills: 0, cp Product Selection Permitted - Flonase Allergy Relief 50 mcg/actuation Nasal spray,suspension - spray 1 spray by INTRANASAL route once daily for 8-10 days; 1 Device; Refills: cp 0, Product Selection Permitted Signatures: Dispatcher [employer] EDMS Arcenio Blount PA PA cp Wood, Tiffany tw5 Jerilyn Martínez RN RN ll3 Corrections: (The following items were deleted from the chart) 20:34 20:22 COVID-19/FLU A+B+MOL.LAB.BRZ ordered. EDMS EDMS
--- NOTE | 2022-04-04 22:26 | ER ---
Nurse's Notes [facility] Name: Ben Rosa Age: 26 yrs Sex: Female : 1995 Arrival Date: 04/04/2022 Time: 20:08 Bed 16 Private MD: Diagnosis: Cough;Acute nasopharyngitis [common cold] Presentation: 04/04 20:17 Chief complaint: Patient states: "I had a really deep cough. I started to feel sick on tw5 Sunday. Two of my coworkers called out, one had the flu, one had the strep. Today I woke up with my eyes swollen and my eyes crusty. I just feel like the cough is getting worse.". Coronavirus screen: Vaccine status: Patient reports being unvaccinated. Ebola Screen: Patient negative for fever greater than or equal to 101.5 degrees Fahrenheit, and additional compatible Ebola Virus Disease symptoms Patient denies exposure to infectious person. Patient denies travel to an Ebola-affected area in the 21 days before illness onset. Onset: The symptoms/episode began/occurred last night. Anaphylaxis evaluation, no signs or symptoms of anaphylaxis were noted. Initial Sepsis Screen: Does the patient meet any 2 criteria? No. Patient's initial sepsis screen is negative. Does the patient have a suspected source of infection? Yes: Productive cough/pneumonia. Risk Assessment: Do you want to hurt yourself or someone else? Patient reports no desire to harm self or others. Onset of symptoms was March 31, 2022. 20:17 Method Of Arrival: Ambulatory tw5 20:17 Acuity: JOSE 3 tw5 Triage Assessment: 20:20 General: Appears in no apparent distress. Behavior is calm, cooperative, appropriate tw5 for age. Pain: Complains of pain in chest Pain currently is 2 out of 10 on a pain scale. 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 - Social history:: Smoking status: Patient denies any tobacco usage or history of. Screenin:21 [facility] ED Fall Risk Assessment (Adult) History of falling in the last 3 months, ll3 including since admission No falls in past 3 months (0 pts) Confusion or Disorientation No (0 pts) Intoxicated or Sedated No (0 pts) Impaired Gait No (0 pts) Mobility Assist Device Used No (0 pt) Altered Elimination No (0 pt) Score/Fall Risk Level 0 - 2 = Low Risk Oriented to surroundings, Maintained a safe environment, Educated pt \\T\\ family on fall prevention, incl call for assistance when getting out of bed. Abuse screen: Denies threats or abuse. Denies injuries from another. Nutritional screening: No deficits noted. Tuberculosis screening: No symptoms or risk factors identified. Assessment: 21:30 General: Appears uncomfortable, Behavior is calm, cooperative. Pain: Complains of pain ll3 in H/A Pain does not radiate. Pain currently is 8 out of 10 on a pain scale. Quality of pain is described as pressure, Is continuous. Neuro: Level of Consciousness is awake, alert, obeys commands, Oriented to person, place, time, situation. Respiratory: Reports cough that is hacking, persistent Airway is patent Respiratory effort is even, unlabored, Respiratory pattern is regular, symmetrical, Breath sounds are clear bilaterally. Derm: Skin is pink, warm \\T\\ dry. 22:23 Reassessment: No changes from previously documented assessment. Patient and/or family ll3 updated on plan of care and expected duration. Pain level reassessed. Patient is alert, oriented x 3, equal unlabored respirations, skin warm/dry/pink. Vital Signs: 20:17 BP 113 / 75; Pulse 75; Resp 18; Temp 99.2; Pulse Ox 99% ; Weight 112.04 kg; Height 5 tw5 ft. 4 in. (162.56 cm); Pain 2/10; 21:30 BP 115 / 74; Pulse 67; Resp 17; Pulse Ox 100% on R/A; ll3 20:17 Body Mass Index 42.40 (112.04 kg, 162.56 cm) tw5 ED Course: 20:08 Patient arrived in ED. ja2 20:20 Triage completed. tw5 20:20 Arm band placed on. tw5 20:33 Strep Sent. tw5 21:13 Arcenio Blount PA is PHCP. cp 21:13 Lissy Hodge MD is Attending Physician. cp 21:37 XRAY Chest Pa And Lat (2 Views) In Process Unspecified. EDMS 22:21 Jerilyn Martínez, JORGE LUIS is Primary Nurse. ll3 22:21 Patient has correct armband on for positive identification. Bed in low position. Call ll3 light in reach. Side rails up X 1. 22:21 No provider procedures requiring assistance completed. Patient did not have IV access ll3 during this emergency room visit. Administered Medications: 21:43 Drug: Ibuprofen 800 mg Route: PO; ll3 22:36 Follow up: Response: No adverse reaction ll3 21:43 Drug: Tessalon Perle (benzonatate) 200 mg Route: PO; ll3 22:36 Follow up: Response: No adverse reaction ll3 Medication: 22:25 VIS not applicable for this client. ll3 Outcome: 22:25 Discharge ordered by MD. cp 22:36 Discharged to home ambulatory. ll3 22:36 Condition: stable 22:36 Discharge instructions given to patient, Instructed on discharge instructions, follow up and referral plans. medication usage, Demonstrated understanding of instructions, follow-up care, medications, Prescriptions given X 2. 22:36 Patient left the ED. ll3 Signatures: Dispatcher [employer] EDME Arcenio Blount PA PA Alona White Tiffany tw5 Jerilyn Martínez, JORGE LUIS RN ll3 Corrections: (The following items were deleted from the chart) 20:34 20:33 COVID-19/FLU A+B+MOL.LAB.BRZ drawn and sent. tw5 EDMS 22:24 21:00 General: Appears uncomfortable, Behavior is calm, cooperative, ll3 ll3 22:24 21:00 Pain: Complains of pain in H/A Pain does not radiate. Pain currently is 8 out of ll3 10 on a pain scale. Quality of pain is described as pressure, Is continuous, ll3 22:24 21:00 Respiratory: Reports cough that is hacking, persistent Airway is patent ll3 Respiratory effort is even, unlabored, Respiratory pattern is regular, symmetrical, Breath sounds are clear bilaterally. ll3 22:24 21:00 Neuro: Level of Consciousness is awake, alert, obeys commands, Oriented to ll3 person, place, time, situation, ll3 22:24 21:00 Derm: Skin is pink, warm \\T\\ dry. ll3 ll3
[2022-04-04 23:36] VITALS: TEMP 99.2
[2022-04-04 23:37] VITALS: BP 115/74; O2SAT 100
== END 2022-04-04 22:36 | disposition home or self-care (01) ==
LOC: ER 20:00
DX: J00 Acute nasopharyngitis [common cold] (principal); Z20.822 Contact with and (suspected) exposure to COVID-19; Z88.0 Allergy status to penicillin; Z88.1 Allergy status to other antibiotic agents; Z91.048 Other nonmedicinal substance allergy status
CPT/HCPCS: 87070; 87081; 81003; 0240U; 71046; 99284

== ENCOUNTER 2022-11-22 13:55 | Inpatient (IN) | payer BC, OTHER ==
--- OUTSIDE RECORDS SUMMARY | 2022-11-22 14:01 | XMS REPORT | Continuity of Care Document ---
:1995 Author Organization [facility] t Address [address] [place] [address] [place] [id number] Care Team Providers Name Role Phone DEEPA HUGHES Primary Care Physician Unavailable PASTOR SAAB Attending Clinician Unavailable Dilan Palacio Attending Clinician DILAN PALACIO Attending Clinician Unavailable CODI LONGORIA Attending Clinician Unavailable Codi Brand Attending Clinician Doctor Unassigned, [place] Attending Clinician Unavailable Lourdes Hodge Attending Clinician LOURDES HODGE Attending Clinician Unavailable Sanjeev Kohli DO Attending Clinician Pastor Saab MD Attending Clinician Only, [facility] Test Attending Clinician Unavailable Stephen [facility] Resident Attending Clinician Unavailable Young Payne Attending Clinician Yani Peralta MD Attending Clinician Nevaeh Abad Attending Clinician YOUNG FAUST Attending Clinician Unavailable Res-Colpo/Ngozi, [facility] Attending Clinician Unavailable Sofiya Mitchell MD Attending Clinician PASTOR SAAB Admitting Clinician Unavailable Pastor Saab MD Admitting Clinician Payers Payer Name Policy Type Policy Number Effective Date Expiration Date S hans [facility] [id number] 2019 00:00:00 [facility] [id number] 2021 PPO 00:00:00 Problems Condition Condition Condition Status Onset Resolution Last Treating Co mments Source Name Details Category Date Date Treatment Clinician Date UNK UNK Diagnosis Active 2021-10-24 Mem oria Active 10-13 07:06:00 l 10/13/2021 00:00: Khalif richardson [facility] 00 [place] EUA/1ST EUA/1ST Diagnosis Active 2021-10-26 Memoria STAGE FIST STAGE FIST 10-13 08:09:00 l Active 00:00: [place] 10/13/2021 00 [facility] POST OP POST OP Diagnosis Active 2021-05-11 Memoria ISSUES ISSUES 05-10 00:22:00 l Active 00:00: [place] 05/10/2021 00 [facility] FISTULOTOM FISTULOTO Diagnosis Active 2021-04-29 Memoria Y MY Active 04-27 09:30:00 l 04/27/2021 00:00: Khalif richardson 00 [facility] Encounter Encounter Disease Active Uni vers for [...] Me moria (finding) (finding) 02:42:55 l Active [place] Problem [facility] Active 2021-12-18 Darryl nakul obesity obesity 02:42:55 l (disorder) (disorder) [place] Active Problem [facility]/18/2021 [facility] Disease Disease Problem Resolve 2021-12-18 2021-12-18 Memoria caused by caused by d 12-01 02:42:55 02:42:55 l 2018-nCoV nCo 00:00: [place] Resolved 00 12/01/2020 Problem 12/18/2021 [facility] History of Past Illness Condition Condition Condition Status Onset Resolution Last Treating Co mments Source Name Details Category Date Date Treatment Clinician Date 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 05-11 22:07:26 22:07:26 l 05/11/2021 08:16: Khalif n 05/13/2021 00 [facility] Hemorrhage Hemorrhag Problem 2021-05-13 2021-05-13 Memoria of anus e of anus 05-11 22:07:26 22:07:26 l and rectum and rectum 08:16: [place] r[place] 00 2 05/13/2021 [facility] Allergies, Adverse Reactions, Alerts Allergy Allergy Status [...] MO^Modera Mem oria in in te l [place] Bactrim Bactrim Active MO^Modera Memor ia te l [place] Latex Latex Active Memoria l [place] iodine iodine Active Memoria l [place] Social History Social Habit Start Date Stop Date Quantity Comments Source History [facility] Frequency [place] [facility] History [facility] o [facility] Alcohol Std Drinks [place] [facility] History [facility] o f Alcohol Binge [place] [facility] Exposure to 2021-08-26 2021-09-05 Not sure [facility] SARS-CoV-2 (event) 00:00:00 17:44:00 [facility] Alcohol intake 2021-09-05 2021-09-05 Ex-drinker [facility] of 00:00:00 00:00:00 (finding) [facility] Social History 2021-04-28 2021-04-28 [facility] [place] 14:20:35 14:20:35 Tobacco use and 2019-01-16 2019-01-16 Never used Universit y of exposure 00:00:00 00:00:00 [facility] Cigarettes smoked 2019-01-16 2019-01-16 Univers ity of current (pack per 00:00:00 00:00:00 ) - Reported Branch History of tobacco 2010 2018-04-02 Cigarette Smoker University of use 00:00:00 00:00:00 [facility] Alcohol Comment 2017-07-19 2017-07-19 socially Universit y of 00:00:00 00:00:00 [facility] Sex Assigned At [birth year] Universit y of 00:00:00 00:00:00 [facility] Smoking Status Start Date Stop Date Source Former smoker 2019-01-16 00:00:00 2019-01-16 00:00:00 [facility]i ty of [facility] Medications Ordered Filled Start Stop Current Ordering Indication Dosage Frequency Signature Comments Components Source Medication Medication Date Date Medication? Clinician (SIG) Name Name Robaxin-750 Yes 750 mg = 1 Memoria oral tablet 8-12 tab, PO, l 01:50: Q6H, PRN [place] 00 Spasms, X 7 day, # 28 tab, 0 Refill(s), Pharmacy: [facility] [id number], 165.1, cm, 11/10/21 9:51:00 CDT, Height, 112.273, kg, 11/10/21 9:51:00 CDT, Weight Robaxin-750 Yes 750 mg = 1 Memoria oral tablet 8-12 tab, PO, l 01:50: Q6H, PRN [place] 00 Spasms, X 7 day, # 28 tab, 0 Refill(s), [facility] [id number], 165.1, cm, 11/10/21 9:51:00 CDT, Height, 112.273, kg, 11/10/21 9:51:00 CDT, Weight Phenergan No Notes: Do Mem oria 10-26 not give l 18:00: IV push. [place] 00 (Same as: Phenergan) Phenergan No Notes: Do Mem oria 10-26 not give l 18:00: IV push. (Same as: Phenergan) Robaxin-750 Yes 750 mg = 1 Memoria oral tablet - tab, PO, l 17:00: Q6H, PRN [place] 00 Spasms, X 7 day, # 28 tab, 0 Refill(s), Pharmacy: [facility] [id number], 165.1, cm, 10/24/21 7:17:00 CDT, Height, 114.545, kg, 10/24/21 7:17:00 CDT, Weight [place] Yes 1 tab, PO, Memori a 7.5/325 10-26 Q6H, PRN l oral tablet 17:00: Pain, X 7 H [place] day, # 28 tab, 0 Refill(s), Pharmacy: [facility] [id number], 165.1, cm, 10/24/21 7:17:00 CDT, Height, 114.545, kg, 10/24/21 7:17:00 CDT, Weight gabapentin Yes 400 mg = 1 M emoria 400 mg oral 10-26 cap, PO, l capsule 17:00: TID, Day 1: 1 cap daily; Day 2: 1 cap BID, Day 3 and later: 1 cap TID, # 42 cap, 0 Refill(s), Pharmacy: [facility] [id number], 165.1, cm, 10/24/21 7:17:00 CDT, Height, 114.545, kg, 10/24/21 7:17:00 CDT, Weight MiraLax Yes 17 gm, PO, Darryl nakul oral powder 10-26 BID, # 527 l for 17:00: gm, 0 [place] reconstitut 00 Refill(s), ion Pharmacy: [facility] [id number], 165.1, cm, 10/24/21 7:17:00 CDT, Height, 114.545, kg, 10/24/21 7:17:00 CDT, Weight Robaxin-750 Yes 750 mg = 1 Memoria oral tablet 7-27 tab, PO, l 17:00: Q6H, PRN [place] 00 Spasms, X 7 day, # 28 tab, 0 Refill(s), Pharmacy: [facility] [id number], 165.1, cm, 10/24/21 7:17:00 CDT, Height, 114.545, kg, 10/24/21 7:17:00 CDT, Weight [place] Yes 1 tab, PO, Memori a 7.5/325 7-27 Q6H, PRN l oral tablet 17:00: Pain, X 7 H [place] 00 day, # 28 tab, 0 Refill(s), Pharmacy: [facility] [id number], 165.1, cm, 10/24/21 7:17:00 CDT, Height, 114.545, kg, 10/24/21 7:17:00 CDT, Weight gabapentin Yes 400 mg = 1 M emoria 400 mg oral 10-26 cap, PO, l capsule 17:00: TID, Day Khalif n 00 1: 1 cap daily; Day 2: 1 cap BID, Day 3 and later: 1 cap TID, # 42 cap, 0 Refill(s), Pharmacy: [facility] [id number], 165.1, cm, 10/24/21 7:17:00 CDT, Height, 114.545, kg, 10/24/21 7:17:00 CDT, Weight MiraLax Yes 17 gm, PO, Darryl nakul oral powder 10-26 BID, # 527 l for 17:00: gm, 0 [place] reconstitut 00 Refill(s), ion Pharmacy: [facility] [id number], 165.1, cm, 10/24/21 7:17:00 CDT, Height, 114.545, kg, 10/24/21 7:17:00 CDT, Weight Robaxin No Notes: Memoria 7- (Same l 16:52: as:Robaxin [place] 00 ) Robaxin No Notes: Memoria 7-27 (Same l 16:52: as:Robaxin [place] 00 ) gabapentin No Notes: Memor ia 400 mg oral 10-26 (Same as: l capsule 16:51: Neurontin) [place] gabapentin No Notes: Memor ia 400 mg oral 10-26 (Same as: l capsule 16:51: Neurontin) [place] ANES No 10 mg, Memoria hydrALAZINE 10-26 Route: l 16:30: IVP, [place] 00 Q20Min, Dosing Weight 114.545, kg, PRN Elevated BP, Start date: 10/26/21 11:30:00 CDT, Duration: 2 doses or times, Stop date: Limited # of times ANES No 10 mg, Memoria labetalol 10-26 Route: l 16:30: IVP, [place] 00 Q5Min, Dosing Weight 114.545, kg, PRN Elevated BP, Start date: 10/26/21 11:30:00 CDT, Duration: 5 doses or times, Stop date: Limited # of times ANES No 5 mg, Memoria oxyCODONE 5 10-26 Route: PO, l mg 16:30: Drug form: [place] immediate 00 TAB, Q4H, release Dosing tablet Weight 114.545, kg, PRN Pain Score 4-6, Start date: 10/26/21 11:30:00 CDT, Duration: 30 day, Stop date: 11/25/21 11:29:00 CDT ANES No 25 Memoria fentaNYL - microgram, l 16:30: Route: [place] 00 IVP, Q5Min, Dosing Weight 114.545, kg, PRN Pain Score 4-6, Priority: Routine, Start date: 10/26/21 11:30:00 CDT, Duration: 4 doses or times, Stop date: Limited # of times ANES No 0.5 mg, Memoria HYDROmorpho 10-26 Route: l ne 16:30: IVP, [place] 00 Q5Min, Dosing Weight 114.545, kg, PRN Pain Score 7-10, Start date: 10/26/21 11:30:00 CDT, Duration: 4 doses or times, Stop date: Limited # of times ANES No 0.2 mg, Memoria flumazenil 10-26 Route: l 16:30: IVP, PRN, Dosing Weight 114.545, kg, PRN Benzodiaze pine Reversal, Initial dose, Start date: 10/26/21 11:30:00 CDT, Duration: 30 day, Stop date: 11/25/21 11:29:00 CDT ANES 0 No 0.4 mg, Memoria naloxone 10-26 Route: l 16:30: IVP, [place] 00 Q2MIN, Dosing Weight 114.545, kg, PRN Narcotic Reversal, Start date: 10/26/21 11:30:00 CDT, Duration: 8 doses or times, Stop date: Limited # of times ANES 2021-0 No 2.49 mg, Memoria albuterol 10-26 Route: l 0.083% 16:30: NEB, [place] inhalation 00 Q20Min, solution Dosing Weight 114.545, kg, PRN Wheezing, Start date: 10/26/21 11:30:00 CDT, Duration: 30 day, Stop date: 11/25/21 11:29:00 CDT ANES 0 No 12.5 mg, Memoria diphenhydrA 10-26 Route: l MINE 16:30: IVP, Drug form: INJ, Q6H, Dosing Weight 114.545, kg, PRN Itching, Start date: 10/26/21 11:30:00 CDT, Duration: 30 day, Stop date: 11/25/21 11:29:00 CDT ANES 2021-0 No 4 mg, Memoria ondansetron 10-26 Route: l 16:30: IVP, ONCE, Dosing Weight 114.545, kg, PRN Nausea & Vomiting, Start date: 10/26/21 11:30:00 CDT ANES 2021-0 No 4 mg, Memoria dexamethaso 10-26 Route: l ne 16:30: IVP, ONCE, Dosing Weight 114.545, kg, PRN Nausea & Vomiting, Start date: 10/26/21 11:30:00 CDT ANES 0 No 10 mg, Memoria hydrALAZINE 10-26 Route: l 16:30: IVP, [place] 00 Q20Min, Dosing Weight 114.545, kg, PRN Elevated BP, Start date: 10/26/21 11:30:00 CDT, Duration: 2 doses or times, Stop date: Limited # of times ANES 2021-0 No 10 mg, Memoria labetalol 10-26 Route: l 16:30: IVP, [place] 00 Q5Min, Dosing Weight 114.545, kg, PRN Elevated BP, Start date: 10/26/21 11:30:00 CDT, Duration: 5 doses or times, Stop date: Limited # of times ANES 2021-0 No 5 mg, Memoria oxyCODONE 5 10-26 Route: PO, l mg 16:30: Drug form: [place] immediate 00 TAB, Q4H, release Dosing tablet Weight 114.545, kg, PRN Pain Score 4-6, Start date: 10/26/21 11:30:00 CDT, Duration: 30 day, Stop date: 11/25/21 11:29:00 CDT ANES 2021-0 No 25 Memoria fentaNYL 10-26 microgram, l 16:30: Route: [place] 00 IVP, Q5Min, Dosing Weight 114.545, kg, PRN Pain Score 4-6, Priority: Routine, Start date: 10/26/21 11:30:00 CDT, Duration: 4 doses or times, Stop date: Limited # of times ANES 2021-0 No 0.5 mg, Memoria HYDROmorpho 10-26 Route: l ne 16:30: IVP, [place] 00 Q5Min, Dosing Weight 114.545, kg, PRN Pain Score 7-10, Start date: 10/26/21 11:30:00 CDT, Duration: 4 doses or times, Stop date: Limited # of times ANES 2021-0 No 0.2 mg, Memoria flumazenil 10-26 Route: l 16:30: IVP, PRN, [place] 00 Dosing Weight 114.545, kg, PRN Benzodiaze [...] Limited # of times ANES 2021-0 No 2.49 mg, Memoria albuterol 10-26 Route: l 0.083% 16:30: NEB, [place] inhalation 00 Q20Min, solution Dosing Weight 114.545, kg, PRN Wheezing, Start date: 10/26/21 11:30:00 CDT, Duration: 30 day, Stop date: 11/25/21 11:29:00 CDT ANES 2021-0 No 12.5 mg, Memoria diphenhydrA 10-26 Route: l MINE 16:30: IVP, Drug form: INJ, Q6H, Dosing Weight 114.545, kg, PRN Itching, Start date: 10/26/21 11:30:00 CDT, Duration: 30 day, Stop date: 11/25/21 11:29:00 CDT ANES 2021-0 No 4 mg, Memoria ondansetron 10-26 Route: l 16:30: IVP, ONCE, Dosing Weight 114.545, kg, PRN Nausea & Vomiting, Start date: 10/26/21 11:30:00 CDT ANES 2021-0 No 4 mg, Memoria dexamethaso 10-26 Route: l ne 16:30: IVP, ONCE, Dosing Weight 114.545, kg, PRN Nausea & Vomiting, Start date: 10/26/21 11:30:00 CDT Dilaudid 2021-0 No Route: IV, Mem oria (ANES) 10-26 Drug form: l 16:29: INJ, ONCE, Stop date: 10/26/21 11:29:00 CDT ondansetron 2021-0 No Route: IV, Memoria (ANES) 10-26 Drug form: l 16:29: INJ, ONCE, Stop date: 10/26/21 11:29:00 CDT ketOROLAC 2022-0 No IV, ONCE Darryl nakul (ANES) 10-26 l 16:29: Dilaudid No Route: IV, Mem oria (ANES) 10-26 Drug form: l 16:29: INJ, ONCE, Stop date: 10/26/21 11:29:00 CDT ondansetron No Route: IV, Memoria (ANES) 10-26 Drug form: l 16:29: INJ, ONCE, Stop date: 10/26/21 11:29:00 CDT ketOROLAC No IV, ONCE Darryl nakul (ANES) 10-26 l 16:29: lidocaine No Route: IV, Me moria (ANES) 10-26 Drug form: l 16:18: INJ, ONCE, Stop date: 10/26/21 11:18:00 CDT propofol No Route: IV, Mem oria (ANES) 10-26 Drug form: l 16:18: INJ, ONCE, Stop date: 10/26/21 11:18:00 CDT lidocaine No Route: IV, Me moria (ANES) 10-26 Drug form: l 16:18: INJ, ONCE, Stop date: 10/26/21 11:18:00 CDT propofol 0 No Route: IV, Mem oria (ANES) 10-26 Drug form: l 16:18: INJ, ONCE, Stop date: 10/26/21 11:18:00 CDT fentaNYL No Route: IV, Mem oria (ANES) 10-26 Drug form: l 16:08: INJ, ONCE, Stop date: 10/26/21 11:08:00 CDT dexamethaso No Route: IV, Memoria ne (ANES) 10-26 Drug form: l 16:08: INJ, ONCE, Stop date: 10/26/21 11:08:00 CDT fentaNYL 0 No Route: IV, Mem oria (ANES) 10-26 Drug form: l 16:08: INJ, ONCE, Stop date: 10/26/21 11:08:00 CDT dexamethaso No Route: IV, Memoria ne (ANES) - Drug form: l 16:08: INJ, ONCE, [place] 00 Stop date: 10/26/21 11:08:00 CDT midazolam 2021-0 No Route: IV, Me moria (ANES) 7- Drug form: l 15:58: SOLN, [place] 00 ONCE, Stop date: 10/26/21 10:58:00 CDT midazolam No Route: IV, Me moria (ANES) 7- Drug form: l 15:58: SOLN, [place] 00 ONCE, Stop date: 10/26/21 10:58:00 CDT Cleocin No Route: IV, Darryl nakul Phosphate 7- Drug form: l (ANES) 900 15:47: INJ, Start H [place] mg 00 date: 10/26/21 10:47:00 CDT, Stop date: 10/26/21 11:47:00 CDT Cleocin No Route: IV, Darryl nakul Phosphate 7- Drug form: l (ANES) 900 15:47: INJ, Start H ermann mg 00 date: 10/26/21 10:47:00 CDT, Stop date: 10/26/21 11:47:00 CDT Lactated No Route: IV, Mem oria Ringers 7-27 Total l Injection 15:25: Volume: Radha nn IV (ANES) 00 1,000, 1000 mL Start date: 10/26/21 10:25:00 CDT, Stop date: 10/26/21 11:25:00 CDT Lactated 0 No Route: IV, Mem oria Ringers 7-27 Total l Injection 15:25: Volume: Radha nn IV (ANES) 00 1,000, 1000 mL Start date: 10/26/21 10:25:00 CDT, Stop date: 10/26/21 11:25:00 CDT Lactated No 1,000 mL, Darryl nakul Ringers 7-27 Rate: 75 l Injection 13:35: ml/hr, Khalif n IV 1,000 mL 00 Infuse over: 13.3 hr, Route: IV, Dosing Weight 114.545 kg, Total Volume: 1,000, Start date: 10/26/21 8:35:00 CDT, Duration: 30 day, Stop date: 11/25/21 8:34:00 CDT, BSA: 2.33 m2, 0 Lactated No 1,000 mL, Darryl nakul Ringers 7-27 Rate: 75 l Injection 13:35: ml/hr, Khalif n IV 1,000 mL 00 Infuse over: 13.3 hr, Route: IV, Dosing Weight 114.545 kg, Total Volume: 1,000, Start date: 10/26/21 8:35:00 CDT, Duration: 30 day, Stop date: 11/25/21 8:34:00 CDT, BSA: 2.33 m2, 0 Probiotic Yes PO, Daily, Me moria Formula 7-19 0 l 17:03: Refill(s) [place] 00 Probiotic Yes PO, Daily, Me moria Formula 7-19 0 l 17:03: Refill(s) [place] 00 levonorgest 2021- No [id number] 1{[facility] Univers reL 6- e} ity of (MIRENA) 00:00: 22:57 [place] IUD 1 00 :07 [employer] [place] levonorgest 2021- No [id number] 1{[facility] Univers reL 6- e} ity of (LILETTA) 00:00: 23:09 [place] IUD 1 00 :00 Mechan[employer] Hand[employer] [place] levonorgest 2021- No [id number] 1{[facility] 1 Device, Univers reL 09-06 e} Intrauteri ity of (LILETTA) 00:00: 23:09 [place]CE, [place] 1 00 :00 1 dose, 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 [place] at 1900, Routine tramadol Yes 50 mg = 1 Darryl nakul hydrochlori 1-28 tab, PO, l de 50 MG 21:02: Q6H, PRN Radha nn Oral Tablet 00 Pain, X 7 day, # 28 tab, 0 Refill(s), Pharmacy: [facility] [id number], 165.1, cm, 04/28/21 7:51:00 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, Height, 107.273, kg, 04/28/21 7:51:00 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, Weight tramadol 0 Yes 50 mg = 1 Darryl nakul hydrochlori 04-29 tab, PO, l de 50 MG 21:02: Q6H, PRN Radha nn Oral Tablet 00 Pain, X 7 day, # 28 tab, 0 Refill(s), Pharmacy: [facility] [id number], 165.1, cm, 04/28/21 7:51:00 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, Height, 107.273, kg, 04/28/21 7:51:00 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, Weight gabapentin 0 Yes 300 mg = 1 M emoria 300 MG Oral 04-29 cap, PO, l Capsule 19:33: TID, Day Khalif n 00 1: 1 cap daily; Day 2: 1 cap BID, Day 3 and later: 1 cap TID, # 42 cap, 0 Refill(s), Pharmacy: [facility] [id number], 165.1, cm, 04/28/21 7:51:00 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, Height, 107.273, kg, 04/28/21 7:51:00 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, Weight Methocarbam 0 Yes 750 mg = 1 Memoria ol 750 MG 04-29 tab, PO, l Oral Tablet 19:33: Q6H, PRN [place] r[place] [Robaxin] 00 Spasms, X 7 day, # 28 tab, 0 Refill(s), Pharmacy: [facility] [id number], 165.1, cm, 04/28/21 7:51:00 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, Height, 107.273, kg, 04/28/21 7:51:00 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, Weight POLYETHYLEN 0 Yes 17 gm, PO, Memoria E GLYCOL 04-29 BID, # 527 l [id number] 19:33: gm, 0 [place] MG/ML Oral 00 Refill(s), Solution Pharmacy: [Miralax] [facility] [id number], 165.1, cm, 04/28/21 7:51:00 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, Height, 107.273, kg, 04/28/21 7:51:00 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, Weight gabapentin 0 Yes 300 mg = 1 M emoria 300 MG Oral 04-29 cap, PO, l Capsule 19:33: TID, Day Khalif n 00 1: 1 cap daily; Day 2: 1 cap BID, Day 3 and later: 1 cap TID, # 42 cap, 0 Refill(s), Pharmacy: [facility] [id number], 165.1, cm, 04/28/21 7:51:00 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, Height, 107.273, kg, 04/28/21 7:51:00 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, Weight Methocarbam 0 Yes 750 mg = 1 Memoria ol 750 MG 04-29 tab, PO, l Oral Tablet 19:33: Q6H, PRN [place] [Robaxin] 00 Spasms, X 7 day, # 28 tab, 0 Refill(s), Pharmacy: [facility] [id number], 165.1, cm, 04/28/21 7:51:00 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, Height, 107.273, kg, 04/28/21 7:51:00 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, Weight POLYETHYLEN 0 Yes 17 gm, PO, Memoria E GLYCOL 04-29 BID, # 527 l [id number] 142 19:33: gm, 0 [place] MG/ML Oral 00 Refill(s), Solution Pharmacy: [Miralax] [facility] [id number], 165.1, cm, 04/28/21 7:51:00 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, Height, 107.273, kg, 04/28/21 7:51:00 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, Weight Acetaminoph 0 Yes 1 tab, PO, Memoria en 300 MG / 04-29 Q4H, PRN l Codeine 19:32: Pain, X 7 Radha nn Phosphate 00 day, # 42 30 MG Oral tab, 0 Tablet Refill(s), [Tylenol Pharmacy: with [facility] [id number], 165.1, cm, 04/28/21 7:51:00 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, Height, 107.273, kg, 04/28/21 7:51:00 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, Weight Acetaminoph 2021-0 Yes 1 tab, PO, Memoria en 300 MG / 04-29 Q4H, PRN l Codeine 19:32: Pain, X 7 Radha nn Phosphate 00 day, # 42 30 MG Oral tab, 0 Tablet Refill(s), [Tylenol Pharmacy: with [facility] [id number], 165.1, cm, 04/28/21 7:51:00 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, Height, 107.273, kg, 04/28/21 7:51:00 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, Weight Oxycodone 2-0 No 10 mg, Memori a 04-29 Route: PO, l 19:14: ONCE, [place] 00 Dosing Weight 107.273, kg, PRN Pain Score 7-10, Start date: 04/29/21 13:14:00 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 Oxycodone 2-0 No 10 mg, Memori a 04-29 Route: PO, l 19:14: ONCE, [place] 00 Dosing Weight 107.273, kg, PRN Pain Score 7-10, Start date: 04/29/21 13:14:00 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 Labetalol 2-0 No 10 mg, Memori a 04-29 Route: l 18:46: IVP, [place] 00 Q5Min, Dosing Weight 107.273, kg, PRN Elevated BP, Start date: 04/29/21 12:46:00 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, Duration: 5 doses or times, Stop date: Limited # of times Ketorolac 2-0 No 30 mg, Memori a 04-29 Route: l 18:46: IVP, ONCE, [place] 00 Dosing Weight 107.273, kg, Start date: 04/29/21 12:46:00 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, Stop date: 04/29/21 12:46:00 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 Oxycodone 2-0 No 5 mg, Memoria Hydrochlori 04-29 Route: PO, l de 5 MG 18:46: Drug form: [place] abe Oral Tablet 00 TAB, Q4H, Dosing Weight 107.273, kg, PRN Pain Score 1-3, Start date: 04/29/21 12:46:00 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, Duration: 30 day, Stop date: 05/29/21 12:45:00 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 Morphine 2-0 No 2 mg, Memoria 04-29 Route: l 18:46: IVP, [place] 00 Q5Min, Dosing Weight 107.273, kg, PRN Pain Score 4-6, Start date: 04/29/21 12:46:00 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, Duration: 5 doses or times, Stop date: Limited # of times Hydromorpho 2021-0 No 0.5 mg, Mem oria ne 04-29 Route: l 18:46: IVP, [place] 00 Q5Min, Dosing Weight 107.273, kg, PRN Pain Score 7-10, Start date: 04/29/21 12:46:00 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, Duration: 4 doses or times, Stop date: Limited # of times Flumazenil 2021-0 No 0.2 mg, Darryl nakul 04-29 Route: l 18:46: IVP, PRN, [place] 00 Dosing Weight 107.273, kg, PRN Benzodiaze pine Reversal, Initial dose, Start date: 04/29/21 12:46:00 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, Duration: 30 day, Stop date: 05/29/21 12:45:00 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 Naloxone 2021-0 No 0.4 mg, Memori a 04-29 Route: l 18:46: IVP, [place] 00 Q2MIN, Dosing Weight 107.273, kg, PRN Narcotic Reversal, Start date: 04/29/21 12:46:00 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, Duration: 8 doses or times, Stop date: Limited # of times Albuterol 2021-0 No 2.49 mg, Darryl nakul 0.83 MG/ML 04-29 Route: l Inhalant 18:46: NEB, [place] Solution 00 Q20Min, Dosing Weight 107.273, kg, PRN Wheezing, Start date: 04/29/21 12:46:00 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, Duration: 30 day, Stop date: 05/29/21 12:45:00 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 Diphenhydra 2-0 No 12.5 mg, Me moria mine 04-29 Route: l 18:46: IVP, Drug [place] 00 form: INJ, Q6H, Dosing Weight 107.273, kg, PRN Itching, Start date: 04/29/21 12:46:00 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, Duration: 30 day, Stop date: 05/29/21 12:45:00 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 Meperidine 2021-0 No 12.5 mg, Mem oria 04-29 Route: l 18:46: IVP, [place] 00 Q30Min, Dosing Weight 107.273, kg, PRN Other -See Comment, For shivering, Start date: 04/29/21 12:46:00 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, Duration: 2 doses or times, Stop date: Limited # of times Ondansetron 2-0 No 4 mg, Memor ia 04-29 Route: l 18:46: IVP, ONCE, [place] 00 Dosing Weight 107.273, kg, PRN Nausea & Vomiting, Start date: 04/29/21 12:46:00 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 Labetalol 2-0 No 10 mg, Memori a 04-29 Route: l 18:46: IVP, [place] 00 Q5Min, Dosing Weight 107.273, kg, PRN Elevated BP, Start date: 04/29/21 12:46:00 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, Duration: 5 doses or times, Stop date: Limited # of times Ketorolac 2021-0 No 30 mg, Memori a 04-29 Route: l 18:46: IVP, ONCE, [place] 00 Dosing Weight 107.273, kg, Start date: 04/29/21 12:46:00 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, Stop date: 04/29/21 12:46:00 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 Oxycodone 2-0 No 5 mg, Memoria Hydrochlori 04-29 Route: PO, l de 5 MG 18:46: Drug form: Herm abe Oral Tablet 00 TAB, Q4H, Dosing Weight 107.273, kg, PRN Pain Score 1-3, Start date: 04/29/21 12:46:00 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, Duration: 30 day, Stop date: 05/29/21 12:45:00 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 Morphine 2-0 No 2 mg, Memoria 04-29 Route: l 18:46: IVP, [place] 00 Q5Min, Dosing Weight 107.273, kg, PRN Pain Score 4-6, Start date: 04/29/21 12:46:00 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, Duration: 5 doses or times, Stop date: Limited # of times Hydromorpho 2-0 No 0.5 mg, Mem oria ne 04-29 Route: l 18:46: IVP, [place] 00 Q5Min, Dosing Weight 107.273, kg, PRN Pain Score 7-10, Start date: 04/29/21 12:46:00 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, Duration: 4 doses or times, Stop date: Limited # of times Flumazenil 2-0 No 0.2 mg, Darryl nakul 04-29 Route: l 18:46: IVP, PRN, [place] Dosing Weight 107.273, kg, PRN Benzodiaze pine Reversal, Initial dose, Start date: 04/29/21 12:46:00 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, Duration: 30 day, Stop date: 05/29/21 12:45:00 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 Naloxone 2-0 No 0.4 mg, Memori a 04-29 Route: l 18:46: IVP, [place] 00 Q2MIN, Dosing Weight 107.273, kg, PRN Narcotic Reversal, Start date: 04/29/21 12:46:00 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, Duration: 8 doses or times, Stop date: Limited # of times Albuterol 2021-0 No 2.49 mg, Darryl nakul 0.83 MG/ML 04-29 Route: l Inhalant 18:46: NEB, [place] Solution 00 Q20Min, Dosing Weight 107.273, kg, PRN Wheezing, Start date: 04/29/21 12:46:00 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, Duration: 30 day, Stop date: 05/29/21 12:45:00 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 Diphenhydra 2-0 No 12.5 mg, Me moria mine 04-29 Route: l 18:46: IVP, Drug form: INJ, Q6H, Dosing Weight 107.273, kg, PRN Itching, Start date: 04/29/21 12:46:00 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, Duration: 30 day, Stop date: 05/29/21 12:45:00 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 Meperidine 2021-0 No 12.5 mg, Mem oria 04-29 Route: l 18:46: IVP, [place] 00 Q30Min, Dosing Weight 107.273, kg, PRN Other -See Comment, For shivering, Start date: 04/29/21 12:46:00 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, Duration: 2 doses or times, Stop date: Limited # of times Ondansetron 2-0 No 4 mg, Memor ia 04-29 Route: l 18:46: IVP, ONCE, Dosing Weight 107.273, kg, PRN Nausea & Vomiting, Start date: 04/29/21 12:46:00 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 fentaNYL 2021-0 No Route: IV, Mem oria (ANES) 04-29 Drug form: l 18:41: INJ, ONCE, Stop date: 04/29/21 12:41:00 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 propofol 2021-0 No Route: IV, Mem oria (ANES) 04-29 Drug form: l 18:41: INJ, ONCE, Stop date: 04/29/21 12:41:00 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 lidocaine 2021-0 No Route: IV, Me moria (ANES) 04-29 Drug form: l 18:41: INJ, ONCE, Stop date: 04/29/21 12:41:00 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 cefOXitin 2021-0 No Route: IV, Me moria (ANES) 04-29 Drug form: l 18:41: INJ, ONCE, Stop date: 04/29/21 12:41:00 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 ondansetron 2021-0 No Route: IV, Memoria (ANES) 04-29 Drug form: l 18:41: INJ, ONCE, Stop date: 04/29/21 12:41:00 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 ketOROLAC 2021-0 No IV, ONCE Darryl nakul (ANES) 04-29 l 18:41: fentaNYL 2021-0 No Route: IV, Mem oria (ANES) 04-29 Drug form: l 18:41: INJ, ONCE, Stop date: 04/29/21 12:41:00 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 propofol 2021-0 No Route: IV, Mem oria (ANES) 04-29 Drug form: l 18:41: INJ, ONCE, Stop date: 04/29/21 12:41:00 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 lidocaine 2021-0 No Route: IV, Me moria (ANES) 04-29 Drug form: l 18:41: INJ, ONCE, Stop date: 04/29/21 12:41:00 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 cefOXitin 2021-0 No Route: IV, Me moria (ANES) 04-29 Drug form: l 18:41: INJ, ONCE, Stop date: 04/29/21 12:41:00 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 ondansetron 2021-0 No Route: IV, Memoria (ANES) 04-29 Drug form: l 18:41: INJ, ONCE, Stop date: 04/29/21 12:41:00 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 ketOROLAC 2022-0 No IV, ONCE Draryl nakul (ANES) 04-29 l 18:41: [place] 00 midazolam No Route: IV, Me moria (ANES) 04-29 Drug form: l 18:40: SOLN, [place] 00 ONCE, Stop date: 04/29/21 12:40:00 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 midazolam No Route: IV, Me moria (ANES) 04-29 Drug form: l 18:40: SOLN, [place] 00 ONCE, Stop date: 04/29/21 12:40:00 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 Lactated No Route: IV, Mem oria Ringers 04-29 Total l Injection 17:52: Volume: Radha nn IV (ANES) 00 1,000, 1000 mL Start date: 04/29/21 11:52:00 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, Stop date: 04/29/21 12:52:00 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 Lactated No Route: IV, Mem oria Ringers 04-29 Total l Injection 17:52: Volume: Radha nn IV (ANES) 00 1,000, 1000 mL Start date: 04/29/21 11:52:00 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, Stop date: 04/29/21 12:52:00 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 Calcium No 1,000 mL, Memor ia Chloride 04-29 Rate: 75 l 0.0014 15:40: ml/hr, [place] MEQ/ML / 00 Infuse Potassium over: 13.3 Chloride hr, Route: 0.004 IV, Dosing MEQ/ML / Weight Sodium 107.273 Chloride kg, Total 0.103 Volume: MEQ/ML / 1,000, Sodium Start Lactate date: 0.028 04/29/21 MEQ/ML 9:40:00 Injectable 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, Solution Duration: 30 day, Stop date: 05/29/21 9:39:00 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, BSA: 2.25 m2 Calcium 0 No 1,000 mL, Memor ia Chloride 04-29 Rate: 75 l 0.0014 15:40: ml/hr, [place] MEQ/ML / 00 Infuse Potassium over: 13.3 Chloride hr, Route: 0.004 IV, Dosing MEQ/ML / Weight Sodium 107.273 Chloride kg, Total 0.103 Volume: MEQ/ML / 1,000, Sodium Start Lactate date: 0.028 04/29/21 MEQ/ML 9:40:00 Injectable 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, Solution Duration: 30 day, Stop date: 05/29/21 9:39:00 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, BSA: 2.25 m2 doxycycline Yes 50mg Take 50 mg Univers 50 mg 8-04 by mouth ity of capsule 11:17: every 12 [place] [id number] (twelve) Medical hours. Branch pantoprazol Yes Take by Uni vers e sodium 8-04 mouth. ity of (PANTOPRAZO 11:17: [place] LE ORAL) Medical Branch linaCLOtide Yes Take by Uni vers (LINZESS) 8-04 mouth. ity of 145 mcg 11:17: [place] capsule Medical Branch FLUoxetine Yes 10mg Take 10 mg U nivers (PROZAC) 10 8-04 by mouth ity of mg capsule 11:17: daily. [address] acetaminoph Yes 1{tbl} Take 1 Un ana maría en-codeine 8-14 tablet by ity of 300-30 mg 00:00: mouth [place] tablet 00 every 6 Medical (six) Branch hours as needed for Pain (scale 7-10). Immunizations Ordered Filled Immunization Date Status Comments [facility] e Immunization Name Name TDAP (ADACEL) 2014-05-31 Completed [place] of VACCINE 00:00:00 [facility] Vital Signs Vital Name Observation Time Observation Value Comments Source Systolic blood 2021-09-05 22:46:00 118 mm[Hg] Univer sity of pressure [facility] Diastolic blood 2021-09-05 22:46:00 76 mm[Hg] Unive rsity [facility] Heart rate 2021-09-05 22:46:00 78 /min [facility] Body temperature 2021-09-05 22:45:00 36.56 Sharda [facility] Respiratory rate 2021-09-05 22:45:00 16 /min [facility] Body height 2021-09-05 22:45:00 165.1 cm [facility] Body weight 2021-09-05 22:45:00 111.585 kg [facility] BMI 2021-09-05 22:45:00 40.94 kg/m2 [facility] Heart Rate 2021-12-15 14:37:00 [facility] [place] Systolic (mm Hg) 2021-12-15 14:37:00 Darryl rial [place] Diastolic (mm Hg) 2021-12-15 14:37:00 Mem orial [place] Height 2021-12-15 14:37:00 165.1 cm [facility] [place] Weight 2021-12-15 14:37:00 [facility] [place] BMI Calculated 2021-12-15 14:37:00 Memori al [place] Heart Rate 2021-11-10 14:51:00 [facility] [place] Systolic (mm Hg) 2021-11-10 14:51:00 Darryl rial [place] Diastolic (mm Hg) 2021-11-10 14:51:00 Mem orial [place] Height 2021-11-10 14:51:00 165.1 cm [facility] [place] Weight 2021-11-10 14:51:00 [facility] [place] BMI Calculated 2021-11-10 14:51:00 Memori al [place] Respitory Rate 2021-10-26 19:30:00 Memori al [place] Systolic (mm Hg) 2021-10-26 19:30:00 Darryl rial [place] Diastolic (mm Hg) 2021-10-26 19:30:00 Mem orial [place] Respitory Rate 2021-10-26 19:15:00 Memori al [place] Systolic (mm Hg) 2021-10-26 19:15:00 Darryl rial [place] Diastolic (mm Hg) 2021-10-26 19:15:00 Mem orial [place] Respitory Rate 2021-10-26 19:00:00 Memori al [place] Systolic (mm Hg) 2021-10-26 19:00:00 Darryl rial [place] Diastolic (mm Hg) 2021-10-26 19:00:00 Mem orial [place] Height 2021-10-24 12:17:00 165.1 cm [facility] [place] Weight 2021-10-24 12:17:00 [facility] [place] BMI Calculated 2021-10-24 12:17:00 Memori al [place] Height 2021-10-18 18:13:00 165.1 cm [facility] [place] Weight 2021-10-18 18:13:00 [facility] [place] BMI Calculated 2021-10-18 18:13:00 Memori al [place] Heart Rate 2021-10-13 16:22:00 [facility] [place] Systolic (mm Hg) 2021-10-13 16:22:00 Darryl rial [place] Diastolic (mm Hg) 2021-10-13 16:22:00 Mem orial [place] Height 2021-10-13 16:22:00 165.1 cm [facility] [place] Weight 2021-10-13 16:22:00 [facility] [place] BMI Calculated 2021-10-13 16:22:00 Memori al [place] Heart Rate 2021-05-19 14:28:00 [facility] [place] Systolic (mm Hg) 2021-05-19 14:28:00 Darryl rial [place] Diastolic (mm Hg) 2021-05-19 14:28:00 Mem orial [place] Height 2021-05-19 14:28:00 165.1 cm [facility] [place] Weight 2021-05-19 14:28:00 [facility] [place] BMI Calculated 2021-05-19 14:28:00 Memori al [place] Systolic (mm Hg) 2021-05-11 09:25:00 Darryl rial [place] Diastolic (mm Hg) 2021-05-11 09:25:00 Mem orial [place] Respitory Rate 2021-05-11 09:25:00 Memori al [place] Heart Rate 2021-05-11 09:25:00 [facility] [place] Height 2021-05-11 05:52:00 165.1 cm [facility] [place] BMI Calculated 2021-05-11 05:52:00 Memori al [place] Weight 2021-05-11 05:52:00 [facility] [place] Systolic (mm Hg) 2021-05-11 05:52:00 Darryl rial [place] Diastolic (mm Hg) 2021-05-11 05:52:00 Mem orial [place] Heart Rate 2021-05-11 05:52:00 [facility] [place] Respitory Rate 2021-05-11 05:52:00 Memori al [place] Temperature Oral (F) 2021-05-11 05:52:00 97.8 F [facility] [place] Respitory Rate 2021-04-29 19:58:00 Memori al [place] Systolic (mm Hg) 2021-04-29 19:58:00 Darryl rial [place] Diastolic (mm Hg) 2021-04-29 19:58:00 Mem orial [place] Respitory Rate 2021-04-29 19:08:00 Memori al [place] Systolic (mm Hg) 2021-04-29 19:08:00 Darryl rial [place] Diastolic (mm Hg) 2021-04-29 19:08:00 Mem orial [place] Respitory Rate 2021-04-29 19:00:00 Memori al [place] Systolic (mm Hg) 2021-04-29 19:00:00 Darryl rial [place] Diastolic (mm Hg) 2021-04-29 19:00:00 Mem orial [place] Heart Rate 2021-04-29 15:58:00 [facility] [place] Height 2021-04-28 13:51:00 165.1 cm [facility] [place] Weight 2021-04-28 13:51:00 [facility] [place] BMI Calculated 2021-04-28 13:51:00 Memori al [place] Heart Rate 2021-04-27 21:38:00 [facility] [place] Systolic (mm Hg) 2021-04-27 21:38:00 Darryl rial [place] Diastolic (mm Hg) 2021-04-27 21:38:00 Mem orial [place] Height 2021-04-27 21:38:00 165.1 cm [facility] [place] Weight 2021-04-27 21:38:00 [facility] [place] BMI Calculated 2021-04-27 21:38:00 Memori al [place] Procedures Procedure Date / Time Performed Performing Clinician [facility] e Anoscopy; diagnostic, 2021-10-13 17:03:00 Memori al [place] including collection of specimen(s) by brushing or washing, when performed (separate procedure) Chemical cauterization of 2021-05-19 14:58:00 Id morial [place] granulation tissue (ie, proud flesh) Epidural block<sup>1</sup> Memor ial [place] Tonsillectomy and Memorial Radha nn adenoidectomy Anal fistulotomy [facility] Khalif n Drainage of Bartholin's [facility] [place] gland Encounters Start End Encounter Admission Attending Care Care Encounter Source Date/Time Date/Time Type Type Clinicians Facility Department ID 2021-01-29 Outpatient [facility] TX[facility]AY [employer] RESEARCH INTERVIEWER [id number] Univers 20:41:42 PASTOR ity [facility] 2021-01-28 Emergency [facility] [id number] Univers 08:49:29 ity [facility] 2021-12-15 2021-12-16 Outpatient nullFlavo MG Multi 55 [id number] Memoria 14:30:00 04:59:59 r Specialty 07 l [facility] 2021-12-15 2021-12-16 Outpatient nullFlavo MG Multi 55 [id number] Memoria 14:30:00 04:59:59 r Specialty 07 l [facility] 2021-12-15 2021-12-15 [facility] [id number] 09:30:00 23:59:59 Mohummed 07 [facility] 2021-12-15 2021-12-15 Outpatient MHIE KATHIIE [id number] Memoria 09:30:00 09:30:[address] [facility] 2021-11-10 2021-11-11 Outpatient nullFlavo MG Multi 55 [id number] Memoria 14:45:00 04:59:59 r Specialty 06 l [facility] 2021-11-10 2021-11-11 Outpatient nullFlavo MG Multi 55 [id number] Memoria 14:45:00 04:59:59 r Specialty 06 l [facility] 2021-11-10 2021-11-10 [facility] [id number] 09:45:00 23:59:59 Mohummed 06 [facility] 2021-11-10 2021-11-10 Outpatient MHIE MHIE [id number] Memoria 09:45:00 09:45:[address] [facility] 2021-10-26 2021-10-26 Day nullFlavo Memorial [id number] Memoria 13:09:00 19:42:00 Surgery r [place] 02 [facility] 2021-10-26 2021-10-26 Day nullFlavo Memorial [id number] Memoria 13:09:00 19:42:00 Surgery r [place] 02 [facility] 2021-10-26 2021-10-26 Outpatient PIA, MHBL BL [id number] MHBL 08:09:00 14:42:00 MOHUMMED 2021-10-26 2021-10-26 Outpatient Steveani, MHPL MHPL [id number] 08:09:00 14:42:00 Mohummed 02 Radflorian 2021-10-26 2021-10-26 Outpatient Steveani, MHPL MHPL [id number] 08:09:00 14:42:00 [facility] 2021-10-26 2021-10-26 Outpatient MHIE MHIE [id number] Memoria 10:30:00 10:30:00 05 gretchen Moody 2021-10-26 2021-10-26 Outpatient MHIE MHIE [id number] Memoria 10:30:00 10:30:00 05 gretchen Moody 2021-10-17 2021-10-17 Outpatient Clay LONGORIA [facility] [id number] Univers 08:15:00 08:15:[address] [facility] 2021-10-17 2021-10-17 Outpatient Clay LONGORIA [facility] [id number] Univers 08:15:00 08:15:00 [facility] o [facility] 2021-10-13 2021-10-14 Outpatient nullFlavo [facility] Multi 55 [id number] Memoria 15:45:00 04:59:59 r Specialty 04 l Phil Moody 2021-10-13 2021-10-14 Outpatient nullFlavo [facility] Multi 55 [id number] Memoria 15:45:00 04:59:59 r Specialty 04 l Phil Moody 2021-10-13 2021-10-13 Outpatient Pia, MHMG MHMG [id number] 10:45:00 23:59:59 [facility]ummed 04 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 [id number] ity of [facility] [id number] Ced as MATERNAL [id number] Med ical & CHILD [address] [place] [address] 2021-09-05 2021-09-05 Outpatient Clay LONGORIA, [facility] [id number] [facility] 17:30:00 18:08:47 ANNIEPIETRO ity o f [facility] 2021-09-05 2021-09-05 Orders Doctor DALLIN 1.2.840.114 [id number] [facility] 00:00:00 00:00:00 Only Unassigned, YONATAN [id number] [facility] [id number] Ced as [phone] [address] 2021-08-18 2021-08-18 Ambulatory nullFlavo [facility] Multi 55 [id number] Memoria 15:00:00 15:00:00 Pre-Reg r Specialty 03 [facility] 2021-08-18 2021-08-18 Ambulatory nullFlavo [facility] Multi 55 [id number] Memoria 15:00:00 15:00:00 Pre-Reg r Specialty 03 [facility] 2021-08-18 2021-08-18 Outpatient Steveani, MHMG MHMG [id number] 10:00:00 10:00:00 Mohummed 03 [place] 2021-08-18 2021-08-18 Outpatient MHIE MHIE [id number] Memoria 08:30:00 08:30:00 03 gretchen [place] 2021-06-10 2021-06-12 Phone nullFlavo MHMG Multi [id number] Memoria 15:15:33 05:59:59 Message r Specialty 00 l [facility] 2021-06-10 2021-06-12 Phone nullFlavo MHMG Multi [id number] Memoria 15:15:33 05:59:59 Message r Specialty 00 l [facility] 2021-06-10 2021-06-11 Outpatient MHMG MHMG [id number] 09:15:33 23:59:59 00 2021-05-19 2021-05-20 Outpatient nullFlavo [facility] Multi 55 [id number] Memoria 14:00:00 05:59:59 r Specialty 02 l [facility] 2021-05-19 2021-05-20 Outpatient nullFlavo [facility] Multi 55 [id number] Memoria 14:00:00 05:59:59 r Specialty 02 l [facility] 2021-05-19 2021-05-19 Outpatient Khani, MHMG MHMG [id number] 08:00:00 23:59:59 Mohummed 02 [facility] 2021-05-19 2021-05-19 Outpatient MHIE MHIE [id number] Memoria 08:00:00 08:00:[address] [facility] 2021-05-11 2021-05-11 Emergency nullFlavo Memorial [id number] Memoria 05:46:19 09:29:00 [facility] 2021-05-11 2021-05-11 Emergency nullFlavo [facility] [id number] Memoria 05:46:19 09:29:[address] 2021-05-10 2021-05-11 Outpatient Hodge, MHPL MHPL [id number] 23:46:19 03:29:[address] [place] [address] 2021-05-10 2021-05-11 Emergency E HODGE, MHBL MHBL [id number] MHBL 23:46:00 03:29:00 REEVA 2021-04-29 2021-04-29 Day nullFlavo [facility] [id number] Memoria 15:28:00 20:15:00 Surgery r [place] 00 [facility] 2021-04-29 2021-04-29 Day nullFlavo [facility] [id number] Memoria 15:28:00 20:15:00 Surgery r [place] 00 [facility] 2021-04-29 2021-04-29 Outpatient PIA, MHSE MHSE [id number] 09:28:00 14:15:00 MOHUMMED [facility] 2021-04-29 2021-04-29 Outpatient Steveani, MHSE MHSE [id number] 09:28:00 14:15:00 Mohummed 00 Radwan 2021-04-29 2021-04-29 Outpatient KATHI PalacioSE MHSE [id number] 09:28:00 14:15:00 Mohummed 00 Radwan 2021-04-29 2021-04-29 Outpatient MHIE MHIE [id number] Memoria 11:30:00 11:30:00 01 gretchen Fransisco 2021-04-29 2021-04-29 Outpatient MHIE MHIE [id number] Memoria 11:30:00 11:30:00 01 gretchen Moody 2021-04-27 2021-04-28 Outpatient nullFlavo [facility] Multi 55 [id number] Memoria 21:15:00 05:59:59 r Specialty 00 l [facility] 2021-04-27 2021-04-28 Outpatient nullFlavo [facility] Multi 55 [id number] Memoria 21:15:00 05:59:59 r Specialty 00 l [facility] 2021-04-27 2021-04-27 Outpatient MINI Palacio MHMG [id number] 15:15:00 23:59:59 Mohummed 00 Radvtdylan 2021-04-27 2021-04-27 Outpatient MHIE MHIE [id number] Memoria 15:15:00 15:15:00 00 gretchen Moody 2020-11-03 2020-11-03 Office Armando TXJAY 1.2.840.114 [id number] Univers 10:18:48 12:09:43 Visit 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 [id number] [facility] [id number] Ced as MATERNAL [phone] [facility] [address] [place] [address] 2020-11-03 2020-11-03 Outpatient Clay LONGORIA [facility] [id number] Univers 10:30:00 10:30:00 CODI mcintyre [facility] 2020-11-03 2020-11-03 Outpatient Clay LONGORIA [facility] [id number] Univers 08:15:00 08:15:00 CODI mcintyre [facility] 2020-06-22 2020-06-22 Patient Seun TXJAY 1.2.840.114 [id number] Univers 00:00:00 00:00:00 Outreach Sanjeev PRIMARY [id number] i ty of [facility] [id number] [id number] [facility] [address] 2020-06-11 2020-06-11 Outpatient R [facility] [id number] Univers 13:00:00 13:00:00 ity of [facility] 2020-05-28 2020-05-28 [facility] [id number] Univers 05:05:00 11:48:00 Encounter Pastor Nelson Yonatan [id number] ity of Hospital [id number] Ced as [id number] [facility] 104 Branch 2020-05-28 2020-05-28 Orders Doctor DALLIN 1.2.840.114 [id number] Univers 00:00:00 00:00:00 Only Unassigned, YONATAN [id number] ity of [facility] 4.2.7.2.686 Ced as [id number] [facility] 009 Branch 2020-05-27 2020-05-27 Laboratory Only, [facility] Test UNIVERSIT 1.2.84 0.114 [id number] Univers 15:54:09 16:09:09 Only Pastor Saab HEALTH [id number] ity of CL[place] [id number] [facility] 316 Branch 2020-05-27 2020-05-27 [id number] Univers 16:00:00 16:00:00 PASTOR ity of [facility] 2020-04-30 2020-04-30 Office Pool, [facility] Resident UNIVERSIT 1.2.8 40.114 [id number] Univers 14:17:56 15:57:41 Visit Pastor Saab Roslyn HEALTH [id number] ity of CL[place]ICS [place] [id number] [facility] 113 Branch 2020-04-30 2020-04-30 [facility] [id number] Univers 14:15:00 14:15:00 PASTOR ity of [facility] 2020-04-12 2020-04-12 Telephone Young Faust UNIVERSIT 1.2.840.114 [id number] Univers 00:00:00 00:00:00 Y HEALTH 350.1.13.10 i ty of [place] [id number] [address] 2020-04-07 2020-04-07 Office Pool, [facility] Resident UNIVERSIT 1.2.8 40.114 [id number] Univers 14:13:55 15:07:04 Visit Yani Peralta [facility] 350.1.13. 10 ity of CL[place] [id number] [address] 2020-04-07 2020-04-07 Outpatient R [facility] [id number] Univers 14:00:00 14:00:00 ity of [facility] 2020-03-05 2020-03-05 Telephone MARICHUY Martinez 1.2.840.114 [id number] Univers 00:00:00 00:00:00 [facility] [id number] i ty of CL[place] [id number] [address] 2020-02-28 2020-02-28 Case MARICHUY Martinez 1.2.248.004 [id number] Univers 00:00:00 00:00:[address] [facility] [id number] ity of CL[place] [id number] [address] 2020-02-28 2020-02-28 Orders Doctor DALLIN 1.2.840.114 [id number] Univers 00:00:00 00:00:00 Only Unassigned, YONATAN 350.1.13.10 ity of [facility] 4.2.7.2.686 Ced as [id number] [address] 2020-02-19 2020-02-19 Outpatient R FREDA FAUSTHA [facility] [id number] Univers 13:00:00 13:00:00 ity of [facility] 2019-10-28 2019-10-30 Office Res-Colpo/Leep, [facility] UNIVERSI T 1.2.840.114 [id number] Univers 10:03:42 10:59:07 Visit Pastor Saab Y HEALTH 350.1.13.10 ity of CL[place] [id number] [address] 2019-10-28 2019-10-30 Office Res-Colpo/L UNIVERSIT 1.2.840.114 [id number] 10:03:42 10:59:07 Visit eep, Y HEALTH 350.1.13.10 [facility] CLINICS 4.2.7.2.686 [id number] 2019-10-29 2019-10-29 Office Pool, [facility] Resident UNIVERSIT 1.2.8 40.114 [id number] Univers 14:15:21 15:43:38 Visit Pastor Saab Y HEALTH 350.1.13.10 ity of CL[place] [id number] [address] 2019-10-29 2019-10-29 Outpatient R [facility] [id number] Univers 14:15:00 14:15:00 ity of [facility] 2019-10-29 2019-10-29 Orders Doctor DALLIN [id number] Univers 00:00:00 00:00:00 Only Unassigned, YONATAN 350.1.13.10 ity of [facility] 4.2.7.2.686 [place] [phone] [place] [address] [address] 2019-10-29 2019-10-29 Orders Doctor DALLIN [id number] 00:00:00 00:00:00 Only Unassigned, YONATAN 350.1.13.10 [facility] 4.2.7.2.686 [phone] [id number] 2019-10-28 2019-10-28 Outpatient R [facility] [id number] Univers 10:00:00 10:00:00 ity of [facility] 2019-10-26 2019-10-26 Emergency [facility] [id number] Univers 01:04:14 01:05:00 Sofiya Dickson 350.1.13.10 ity of [place] 4.2.7.2.686 [facility] [phone] [place] [id number] [place] 2019-09-02 2019-09-02 Outpatient R [facility] [id number] Univers 09:00[facility]00 [facility] 2019-08-21 Outpatient R [facility] [id number] Univers 10:00:00 10:00:00 [facility] Results Test Description Test Time Test Comments Results Result Comments Source IMMUNOLOGY 2021-10-24 12:17:00 Test Item Value Reference Range Interpretation Comme nts Coronavirus (COVID-19) SONG (test code = Not Detected *NA*(10/24/21 7 :17 AM) Coronavirus (COVID-19) SONG) [facility]2022-07-25 12:17:00 Test Item Value Reference Range Interpretation Comments U Preg (test code = U Negative (10/24/21 7:17 Preg) AM) [id number] 12:17:00 Test Item Value Reference Range Interpretation Comments Coronavirus (COVID-19) Not Detected SONG (test code = *NA*(10/24/21 7:17 AM) Coronavirus (COVID-19) SONG) [facility]2022-07-25 12:17:00 Test Item Value Reference Range Interpretation Comments U Preg (test code = U Negative (10/24/21 7:17 Preg) AM) [facility]2022-02-09 07:05:00 Test Item Value Reference Range Interpretation Comments CO2 (test code = CO2) 26 24-32 [facility]2022-02-09 07:05:00 Test Item Value Reference Range Interpretation Comments Calcium Lvl (test code = Calcium Lvl) 9.0 8.5-10.5 [facility]2022-02-09 07:05:00 Test Item Value Reference Range Interpretation Comments Total Protein (test code = Total 7.9 6.4-8.4 Protein) [facility]2022-02-09 07:05:00 Test Item Value Reference Range Interpretation Comments Albumin Lvl (test code = Albumin Lvl) 3.6 3.5-5.0 [place] [id number] 07:05:00 Test Item Value Reference Range Interpretation Comments ALT (test code = ALT) 18 See_Comment [Auto mated message] The system which ge nerated this result transmit viji reference range : <=65. The reference range was not used to interpr et this result as brent l/abnormal. [facility] [id number] 07:05:00 Test Item Value Reference Range Interpretation Comments AST (test code = AST) 14 See_Comment [Auto mated message] The system which ge nerated this result transmit viji reference range : <=37. The reference range was not used to interpr et this result as brent l/abnormal. [facility] [id number] 07:05:00 Test Item Value Reference Range Interpretation Comments Alk Phos (test code = Alk Phos) 75 39-136 [facility] [id number] 07:05:00 Test Item Value Reference Range Interpretation Comments Chloride Lvl (test code = Chloride Lvl) 104 95-109 [facility] [id number] 07:05:00 Test Item Value Reference Range Interpretation Comments CO2 (test code = CO2) 26 24-32 [facility] [id number] 07:05:00 Test Item Value Reference Range Interpretation Comments Calcium Lvl (test code = Calcium Lvl) 9.0 8.5-10.5 [facility] [id number] 07:05:00 Test Item Value Reference Range Interpretation Comments Total Protein (test code = Total 7.9 6.4-8.4 Protein) [facility] [id number] 07:05:00 Test Item Value Reference Range Interpretation Comments Albumin Lvl (test code = Albumin Lvl) 3.6 3.5-5.0 [facility] [id number] 07:05:00 Test Item Value Reference Range Interpretation Comments ALT (test code = ALT) 18 See_Comment [Auto mated message] The system which ge nerated this result transmit viji reference range : <=65. The reference range was not used to interpr et this result as brent l/abnormal. [facility] [id number] 07:05:00 Test Item Value Reference Range Interpretation Comments AST (test code = AST) 14 See_Comment [Auto mated message] The system which ge nerated this result transmit viji reference range : <=37. The reference range was not used to interpr et this result as brent l/abnormal. [facility]2022-02-09 07:05:00 Test Item Value Reference Range Interpretation Comments Alk Phos (test code = Alk Phos) 75 39-136 [place] [id number] 07:05:00 Test Item Value Reference Range Interpretation Comments Bili Total (test code = Bili Total) 0.2 0.2-1.3 [place] [id number] 07:05:00 Test Item Value Reference Range Interpretation Comments AGAP (test code = AGAP) 12.8 10.0-20.0 [place] [id number] 07:05:00 Test Item Value Reference Range Interpretation Comments B/C Ratio (test code = B/C Ratio) 16 1 6-25 [place] [id number] 07:05:00 Test Item Value Reference Range Interpretation Comments Globulin (test code = Globulin) 4.3 2.7-4.2 [facility]2022-02-09 07:05:00 Test Item Value Reference Range Interpretation Comments A/G Ratio (test code = A/G Ratio) 0.8 1 0.7-1.6 [place] [id number] 07:05:00 Test Item Value Reference Range Interpretation Comments eGFR (test code = eGFR) 84 [facility]FglstscOUOMPJRIDWCRF2826-73-86 07:05:00 Test Item Value Reference Range Interpretation Comments S Preg (test code = S Negative *NA*(05/11/21 Preg) 1:05 AM) [facility] HospitalDcivfcePBJLYIPTUG8092-77-44 07:05:00 Test Item Value Reference Range Interpretation Comments Segs (test code = Segs) 61.9 45.0-75.0 [place] [id number] 07:05:00 Test Item Value Reference Range Interpretation Comments Lymphocytes (test code = Lymphocytes) 29.0 20.0-40.0 [place] 994232-02-09 07:05:00 Test Item Value Reference Range Interpretation Comments Monocytes (test code = Monocytes) 7.2 2.0-12.0 [place] 994232-02-09 07:05:00 Test Item Value Reference Range Interpretation Comments Eosinophils (test code = 1.3 See_Comment [A utomated message] The Eosinophils) system which ge nerated this result tra nsmitted reference range : <=4.0. The reference r bishnu was not used to int erpret this result as normal/abnormal . [facility] Hospit[id number] 07:05:00 Test Item Value Reference Range Interpretation Comments Basophils (test code = 0.6 See_Comment [Aut omated message] The Basophils) system which ge nerated this result tra nsmitted reference range : <=1.0. The reference r bishnu was not used to int erpret this result as normal/abnormal . [facility] HospitalYsgazfhKPDYZHLPQK5095-79-91 07:05:00 Test Item Value Reference Range Interpretation Comments Neutrophils # (test code = Neutrophils 7.6 1.5-8.1 #) [facility] HospitalNofigvdAJIUTBFIZM6337-01-33 07:05:00 Test Item Value Reference Range Interpretation Comments Lymphocytes # (test code = Lymphocytes 3.6 1.0-5.5 #) [facility] HospitalGrorfbrPOWVHWZUFI8913-11-92 07:05:00 Test Item Value Reference Range Interpretation Comments Monocytes # (test code 0.9 See_Comment [Aut omated message] The = Monocytes #) system which generated this result tra nsmitted reference range : <=0.8. The reference r bishnu was not used to int erpret this result as normal/abnormal . [facility] HospitalTenexlzBTWKCPTSJE0099-31-70 07:05:00 Test Item Value Reference Range Interpretation Comments Eosinophils # (test code 0.2 See_Comment [A utomated message] The = Eosinophils #) system whic h generated this result tra nsmitted reference range : <=0.5. The reference r bishnu was not used to int erpret this result as normal/abnormal . [facility] HospitalFakgdaiLBEOQESUIL2762-89-49 07:05:00 Test Item Value Reference Range Interpretation Comments Basophils # (test code 0.1 See_Comment [Aut omated message] The = Basophils #) system which generated this result tra nsmitted reference range : <=0.2. The reference r bishnu was not used to int erpret this result as normal/abnormal . [facility] HospitalBgfrxraKUTGROUWPA4440-37-11 07:05:00 Test Item Value Reference Range Interpretation Comments WBC (test code = WBC) 12.3 3.7-10.4 [facility] HospitalXdilpmjVAFMHYVIEP4819-66-07 07:05:00 Test Item Value Reference Range Interpretation Comments RBC (test code = RBC) 4.24 4.20-5.40 [facility] HospitalCvjrovqVNHWYTZMWD3885-13-15 07:05:00 Test Item Value Reference Range Interpretation Comments Hgb (test code = Hgb) 13.1 12.0-16.0 [facility] HospitalJriliglUINEPKXHZN4505-08-12 07:05:00 Test Item Value Reference Range Interpretation Comments Hct (test code = Hct) 37.4 36.0-48.0 [facility] HospitalPwqpivnFKUIQFWFMF0630-54-95 07:05:00 Test Item Value Reference Range Interpretation Comments MCV (test code = MCV) 88.1 80.0-98.0 [facility] HospitalRweomsnZRTVXHCQFB3457-08-26 07:05:00 Test Item Value Reference Range Interpretation Comments MCH (test code = MCH) 30.8 pg 27.0-31.0 [facility] HospitalRifcaqsHGGAZROIBK2319-67-18 07:05:00 Test Item Value Reference Range Interpretation Comments MCHC (test code = MCHC) 34.9 32.0-36.0 [facility] HospitalSodnbhbJJLRLKRDFO8606-96-25 07:05:00 Test Item Value Reference Range Interpretation Comments RDW (test code = RDW) 12.5 11.5-14.5 [facility] HospitalGfvigtrGDMQDNRJJO5788-52-05 07:05:00 Test Item Value Reference Range Interpretation Comments Platelet (test code = Platelet) 278 133-450 [facility] HospitalUuzbtipGPLYSLYEDD5099-94-68 07:05:00 Test Item Value Reference Range Interpretation Comments MPV (test code = MPV) 9.6 7.4-10.4 [facility]2022-02-09 07:05:00 Test Item Value Reference Range Interpretation Comments Glucose Lvl (test code = Glucose Lvl) 114 70-99 [facility]2022-02-09 07:05:00 Test Item Value Reference Range Interpretation Comments BUN (test code = BUN) 15 7-22 [facility]2022-02-09 07:05:00 Test Item Value Reference Range Interpretation Comments Creatinine Lvl (test code = Creatinine 0.94 0.50-1.40 Lvl) [facility]2022-02-09 07:05:00 Test Item Value Reference Range Interpretation Comments Sodium Lvl (test code = Sodium Lvl) 139 135-145 [facility]2022-02-09 07:05:00 Test Item Value Reference Range Interpretation Comments Potassium Lvl (test code = Potassium 3.8 3.5-5.1 Lvl) [facility]2022-02-09 07:05:00 Test Item Value Reference Range Interpretation Comments Bili Total (test code = Bili Total) 0.2 0.2-1.3 [facility]2022-02-09 07:05:00 Test Item Value Reference Range Interpretation Comments AGAP (test code = AGAP) 12.8 10.0-20.0 [facility]2022-02-09 07:05:00 Test Item Value Reference Range Interpretation Comments B/C Ratio (test code = B/C Ratio) 16 1 6-25 [place] 621392-02-09 07:05:00 Test Item Value Reference Range Interpretation Comments Globulin (test code = Globulin) 4.3 2.7-4.2 [facility]2022-02-09 07:05:00 Test Item Value Reference Range Interpretation Comments A/G Ratio (test code = A/G Ratio) 0.8 1 0.7-1.6 [facility]2022-02-09 07:05:00 Test Item Value Reference Range Interpretation Comments eGFR (test code = eGFR) 84 [facility] HospitalLpjaeipFLSJJDUQDDOLN9760-57-53 07:05:00 Test Item Value Reference Range Interpretation Comments S Preg (test code = S Negative *NA*(05/11/21 Preg) 1:05 AM) [facility] HospitalZktxepoTHAUMIHWAG4763-83-05 07:05:00 Test Item Value Reference Range Interpretation Comments Segs (test code = Segs) 61.9 45.0-75.0 [facility] HospitalRxqizvyHHUXRQAKFT1533-81-45 07:05:00 Test Item Value Reference Range Interpretation Comments Lymphocytes (test code = Lymphocytes) 29.0 20.0-40.0 [place] 994232-02-09 07:05:00 Test Item Value Reference Range Interpretation Comments Monocytes (test code = Monocytes) 7.2 2.0-12.0 [place] 994232-02-09 07:05:00 Test Item Value Reference Range Interpretation Comments Eosinophils (test code = 1.3 See_Comment [A utomated message] The Eosinophils) system which ge nerated this result tra nsmitted reference range : <=4.0. The reference r bishnu was not used to int erpret this result as normal/abnormal . [facility] HospitalDrcjpquSZJNVXPILD4295-74-54 07:05:00 Test Item Value Reference Range Interpretation Comments Basophils (test code = 0.6 See_Comment [Aut omated message] The Basophils) system which ge nerated this result tra nsmitted reference range : <=1.0. The reference r bishnu was not used to int erpret this result as normal/abnormal . [facility] HospitalLdjyjxdIILGYHIUSL2289-21-16 07:05:00 Test Item Value Reference Range Interpretation Comments Neutrophils # (test code = Neutrophils 7.6 1.5-8.1 #) [facility] HospitalCwhlmqqGSFJXMISJE3990-49-05 07:05:00 Test Item Value Reference Range Interpretation Comments Lymphocytes # (test code = Lymphocytes 3.6 1.0-5.5 #) [facility] HospitalAyusbofKBYOLXUYAS9122-15-64 07:05:00 Test Item Value Reference Range Interpretation Comments Monocytes # (test code 0.9 See_Comment [Aut omated message] The = Monocytes #) system which generated this result tra nsmitted reference range : <=0.8. The reference r bishnu was not used to int erpret this result as normal/abnormal . [facility] HospitalGwgbelpPUJUIKZBMM4311-20-33 07:05:00 Test Item Value Reference Range Interpretation Comments Eosinophils # (test code 0.2 See_Comment [A utomated message] The = Eosinophils #) system whic h generated this result tra nsmitted reference range : <=0.5. The reference r bishnu was not used to int erpret this result as normal/abnormal . [facility] HospitalVcnucytSVPXOREYDG3559-79-58 07:05:00 Test Item Value Reference Range Interpretation Comments Basophils # (test code 0.1 See_Comment [Aut omated message] The = Basophils #) system which generated this result tra nsmitted reference range : <=0.2. The reference r bishnu was not used to int erpret this result as normal/abnormal . [facility] HospitalHfoudwdAYRKENLFII3019-25-47 07:05:00 Test Item Value Reference Range Interpretation Comments WBC (test code = WBC) 12.3 3.7-10.4 [facility] HospitalYwzoxzkEWHXLFBNAL6770-58-92 07:05:00 Test Item Value Reference Range Interpretation Comments RBC (test code = RBC) 4.24 4.20-5.40 [facility] HospitalUqpuccfSDVPAHTFIV8258-06-90 07:05:00 Test Item Value Reference Range Interpretation Comments Hgb (test code = Hgb) 13.1 12.0-16.0 [place] 994232-02-09 07:05:00 Test Item Value Reference Range Interpretation Comments Hct (test code = Hct) 37.4 36.0-48.0 [place] 994232-02-09 07:05:00 Test Item Value Reference Range Interpretation Comments MCV (test code = MCV) 88.1 80.0-98.0 [place] 994232-02-09 07:05:00 Test Item Value Reference Range Interpretation Comments MCH (test code = MCH) 30.8 pg 27.0-31.0 [facility] HospitalQautvwlZKKZVTFPMY0283-35-24 07:05:00 Test Item Value Reference Range Interpretation Comments MCHC (test code = MCHC) 34.9 32.0-36.0 [facility] HospitalPkgpzmbTHGDRQTBPT9927-51-52 07:05:00 Test Item Value Reference Range Interpretation Comments RDW (test code = RDW) 12.5 11.5-14.5 [facility] HospitalJrhhhhpDALKFKBPJM8158-65-84 07:05:00 Test Item Value Reference Range Interpretation Comments Platelet (test code = Platelet) 278 133-450 [facility] HospitalXsuixieLTBIKVIZYG8943-85-15 07:05:00 Test Item Value Reference Range Interpretation Comments MPV (test code = MPV) 9.6 7.4-10.4 [facility]2022-02-09 07:05:00 Test Item Value Reference Range Interpretation Comments Glucose Lvl (test code = Glucose Lvl) 114 70-99 [facility]2022-02-09 07:05:00 Test Item Value Reference Range Interpretation Comments BUN (test code = BUN) 15 7-22 [place] 621392-02-09 07:05:00 Test Item Value Reference Range Interpretation Comments Creatinine Lvl (test code = Creatinine 0.94 0.50-1.40 Lvl) [facility]2022-02-09 07:05:00 Test Item Value Reference Range Interpretation Comments Sodium Lvl (test code = Sodium Lvl) 139 135-145 [facility]2022-02-09 07:05:00 Test Item Value Reference Range Interpretation Comments Potassium Lvl (test code = Potassium 3.8 3.5-5.1 Lvl) [facility]2022-02-09 07:05:00 Test Item Value Reference Range Interpretation Comments Chloride Lvl (test code = Chloride Lvl) 104 95-109 [facility]2022-01-28 15:41:00 Test Item Value Reference Range Interpretation Comments U Preg (test code = U Negative (04/29/21 9:41 Preg) AM) [facility]2022-01-28 15:41:00 Test Item Value Reference Range Interpretation Comments U Preg (test code = U Negative (04/29/21 9:41 Preg) AM) [facility] 14:10:00 Test Item Value Reference Range Interpretation Comments Coronavirus (COVID-19) Not Detected (04/28/21 SONG (test code = 8:10 AM) Coronavirus (COVID-19) SONG) [facility]AqrbyhxXIZZIPZKVI3413-76-27 14:10:00 Test Item Value Reference Range Interpretation Comments Coronavirus (COVID-19) Not Detected (04/28/21 SONG (test code = 8:10 AM) Coronavirus (COVID-19) SONG) [facility]
[2022-11-22] MEDS ORDERED: NA CHLORIDE 0.9% 1,000 ML ONE (14:46)
[2022-11-22] MEDS ORDERED: ONDANSETRON 4 MG/2 ML VIAL ONE (14:46)
[2022-11-22] MEDS ORDERED: MORPHINE 4 MG/ML SYR ONE ×2 (14:46→21:05)
[2022-11-22 15:07] LABS: Absolute Lymphocytes (CBC) 3.4 K/uL (0.7-4.9); Hematocrit 41.7 % (36.0-45.0); Lymphocytes % 22.3 % (15.3-44.8); MPV 10.2 fL (7.6-11.3); Platelets 270 thou/uL (152-406); RBC Red Blood Cell Count 4.58 M/uL (3.86-4.86)
[2022-11-22 15:14] LABS: Albumin 3.8 g/dL (3.4-5.0); Bilirubin Total 0.5 mg/dL (0.2-1.0); Potassium 3.3 mEq/L (3.5-5.1); Protein, Total 7.8 g/dL (6.4-8.2)
[2022-11-22 15:47] LABS: Specific Gravity 1.005 (1.005-1.030)
[2022-11-22 15:48] LABS: Specific Gravity 1.005 (1.005-1.030); Urine Bacteria <20 /HPF (<20); Urine Bilirubin NEGATIVE (Negative); Urine Blood Negative (Negative); Urine Clarity Turbid (Clear); Urine Color Colorless (Yellow); Urine Glucose NEGATIVE (Negative); Urine Protein NEGATIVE (Negative); Urine RBC None Seen /HPF (None Seen); Urine Urobilinogen Normal (Normal)
[2022-11-22] MEDS ORDERED: PROMETHAZINE INJ 25 MG/ML AMP ONE (16:49)
--- NOTE | 2022-11-22 18:10 | ER ---
Nurse's Notes [facility] Name: Ben Rosa Age: 27 yrs Sex: Female : 1995 Arrival Date: 11/22/2022 Time: 13:55 Bed 13 Private MD: Diagnosis: Vomiting;Left sided colitis-rectal pain;Crohn's disease, unspecified, without complications;Elevated white blood cell count;Hypokalemia Presentation: 11/22 14:14 Chief complaint: Patient states: i feel fatigued, not eating much due to my digestive iw issues, throwing up bile and mucous since Sunday. Risk Assessment: Do you want to hurt yourself or someone else? Patient reports no desire to harm self or others. 14:14 Acuity: JOSE 3 iw 14:14 Method Of Arrival: Wheelchair iw 15:07 Coronavirus screen: At this time, the client does not indicate any symptoms associated kc6 with coronavirus-19. Ebola Screen: No symptoms or risks identified at this time. Initial Sepsis Screen: Does the patient meet any 2 criteria? No. Patient's initial sepsis screen is negative. Does the patient have a suspected source of infection? No. Patient's initial sepsis screen is negative. Onset of symptoms was November 19, 2022. Historical: - Allergies: 14:17 Bactrim; iw 14:17 Iodine (rash); iw 14:17 PENICILLINS; iw - PMHx: 14:17 Crohn's; perianal fistula; facial trauma; iw - PSHx: 14:17 perianal fistula repair x 8; Adenoid excision; Tonsillectomy; iw - Immunization history:: Adult Immunizations up to date. - Social history:: Smoking status: Patient denies any tobacco usage or history of. - Family history:: not pertinent. Screenin:28 [facility] ED Fall Risk Assessment (Adult) History of falling in the last 3 months, kc6 including since admission No falls in past 3 months (0 pts) Confusion or Disorientation No (0 pts) Intoxicated or Sedated No (0 pts) Impaired Gait No (0 pts) Mobility Assist Device Used No (0 pt) Altered Elimination No (0 pt) Score/Fall Risk Level 0 - 2 = Low Risk. Abuse screen: Denies threats or abuse. Denies injuries from another. Nutritional screening: No deficits noted. Tuberculosis screening: No symptoms or risk factors identified. Assessment: 14:28 General: Appears in no apparent distress. uncomfortable, Behavior is calm, cooperative, kc6 appropriate for age. Pain: Complains of pain in epigastric area and left upper quadrant Pain does not radiate. Pain currently is 6 out of 10 on a pain scale. Pain began 2-3 days ago. Neuro: Level of Consciousness is awake, alert, obeys commands, Oriented to person, place, time, situation, Appropriate for age. Cardiovascular: Capillary refill < 3 seconds. Respiratory: Airway is patent Trachea midline Respiratory effort is even, unlabored, Respiratory pattern is regular, symmetrical. GI: Abdomen is round non-distended, Pt is actively vomiting bile, clear fluid, Bowel sounds present X 4 quads. Abd is soft X 4 quads Abdomen is tender to palpation in epigastric area and left upper quadrant Reports upper abdominal pain, nausea, vomiting, Patient currently denies diarrhea. : No signs and/or symptoms were reported regarding the genitourinary system. EENT: No signs and/or symptoms were reported regarding the EENT system. Derm: No signs and/or symptoms reported regarding the dermatologic system. Skin is intact, is healthy with good turgor, Skin is pink, warm \T\ dry. Musculoskeletal: No signs and/or symptoms reported regarding the musculoskeletal system. Circulation, motion, and sensation intact. Capillary refill < 3 seconds, Range of motion: intact in all extremities. 15:22 Reassessment: Patient appears in no apparent distress at this time. No changes from kc6 previously documented assessment. Patient and/or family updated on plan of care and expected duration. Pain level reassessed. Patient is alert, oriented x 3, equal unlabored respirations, skin warm/dry/pink. 16:22 Reassessment: Patient appears in no apparent distress at this time. No changes from kc6 previously documented assessment. Patient and/or family updated on plan of care and expected duration. Pain level reassessed. Patient is alert, oriented x 3, equal unlabored respirations, skin warm/dry/pink. 17:24 Reassessment: Patient appears in no apparent distress at this time. No changes from kc6 previously documented assessment. Patient and/or family updated on plan of care and expected duration. Pain level reassessed. Patient is alert, oriented x 3, equal unlabored respirations, skin warm/dry/pink. 18:24 Reassessment: Patient appears in no apparent distress at this time. No changes from kc6 previously documented assessment. Patient and/or family updated on plan of care and expected duration. Pain level reassessed. Patient is alert, oriented x 3, equal unlabored respirations, skin warm/dry/pink. 19:50 General: Appears comfortable, Behavior is calm, cooperative. Pain: Complains of pain in ha1 abdomen Pain does not radiate. Pain currently is 7 out of 10 on a pain scale. Quality of pain is described as crampy, pressure. Neuro: Level of Consciousness is awake, alert, obeys commands, Oriented to person, place, time, situation. Cardiovascular: Patient's skin is warm and dry. Respiratory: Airway is patent Respiratory effort is even, unlabored, Respiratory pattern is regular, symmetrical. GI: Abdomen is round non-distended, Bowel sounds present X 4 quads. Reports nausea, vomiting. Musculoskeletal: Circulation, motion, and sensation intact. Range of motion: intact in all extremities. 20:30 Reassessment: Patient and/or family updated on plan of care and expected duration. Pain ha1 level reassessed. Patient is alert, oriented x 3, equal unlabored respirations, skin warm/dry/pink. Called nurse mera Marley to notified pt. requesting pain medication. received verbal order of 4 mg Morphine IVP. 20:32 Reassessment: attempted to give report. 1 21:01 Reassessment: report given to JORGE LUIS mejía. [facility] 21:05 Reassessment: IV infiltrated. Notified charge nurse of need for ultrasound IV. 1 Vital Signs: 14:15 BP 114 / 82; Pulse 92; Resp 22; Temp 98.4; Pulse Ox 98% on R/A; iw 15:20 Pulse 74; Resp 18; Temp 98.1; Pulse Ox 98% ; Pain 5/10; sm8 15:22 BP 125 / 88; Pulse 70; Resp 16 S; Pulse Ox 97% on R/A; kc6 17:02 BP 134 / 81; Pulse 70; Resp 18 S; Pulse Ox 92% on R/A; kc6 17:24 Pulse 100; Resp 17 S; Pulse Ox 97% on R/A; kc6 19:15 BP 103 / 73; Pulse 63; Resp 16 S; Pulse Ox 98% on R/A; ha1 20:30 BP 101 / 80; Pulse 89; Resp 17 S; Pulse Ox 99% on R/A; ha1 21:56 BP 104 / 81; Pulse 85; Resp 18 S; Pulse Ox 98% on R/A; ha1 15:20 Pain Scale: Adult sm8 ED Course: 13:59 Patient arrived in ED. mg5 14:06 Bernardo Marquez MD is Attending Physician. rt 14:15 Triage completed. iw 14:17 Arm band placed on. iw 14:18 Cecille Duenas, JORGE LUIS is Primary Nurse. kc6 14:27 Inserted saline lock: 20 gauge in right antecubital area, using aseptic technique. kc6 Blood collected. 14:28 Patient has correct armband on for positive identification. Bed in low position. Call kc6 light in reach. Side rails up X 1. Adult w/ patient. 17:49 Attending Physician role handed off by Bernardo Marquez MD caro 17:49 Arcenio Chua MD is Attending Physician. caro 18:05 Chandler Alvarado MD is Hospitalizing Provider. caro 19:00 Report given to Carlotta Casas RN. kc6 19:28 CT Abd/Pelvis - Without Contrast In Process Unspecified. EDMS 21:05 IV discontinued, intact, bleeding controlled, No redness/swelling at site. Pressure ha1 dressing applied. 21:08 Missed attempt(s): 22 gauge in left antecubital area. ha1 21:12 Missed attempt(s): 20 gauge in right forearm. ha1 21:25 Provided Education on: need for admit . ha1 21:32 No provider procedures requiring assistance completed. Patient admitted, IV remains in ha1 place. 21:41 Inserted saline lock: 20 gauge in right forearm, using aseptic technique. ultrasound as6 guided, long catheter. Administered Medications: 14:54 Drug: NS 0.9% IV 1000 ml Route: IV; Rate: 1 bolus; Site: right antecubital; kc6 15:45 Follow up: Response: No adverse reaction; IV Status: Completed infusion; IV Intake: kc6 1000ml 14:54 Drug: Ondansetron IVP 4 mg Route: IVP; Site: right antecubital; kc6 15:30 Follow up: Response: No adverse reaction; Nausea is decreased; Vomiting decreased kc6 14:54 Drug: morphine IVP or IV 4 mg Route: IVP; Infused Over: 4 mins; Site: right antecubital;kc6 15:30 Follow up: Response: No adverse reaction; Pain is decreased; RASS: Alert and Calm (0) kc6 16:42 Drug: Promethazine IVP 12.5 mg Route: IVP; Site: right antecubital; ph 17:23 Follow up: Response: No adverse reaction; Nausea is decreased; Vomiting decreased kc6 18:30 Drug: metroNIDAZOLE IVPB 500 mg Volume: 100 ml; Route: IVPB; Rate: 200 ml/hr; Infused kc6 Over: 30 mins; Site: right antecubital; 20:10 Follow up: Response: No adverse reaction; IV Status: Completed infusion; IV Intake: ha1 100ml 18:30 Drug: NS 0.9% with KCl IV 20 mEq/L 1000 ml Route: IV; Rate: 125 ml/hr; Site: right kc6 antecubital; 18:34 Drug: clonazePAM PO 1 mg Route: PO; kc6 19:15 Follow up: Response: No adverse reaction; Anxiety decreased; RASS: Alert and Calm (0) kc6 20:15 Drug: Ciprofloxacin IVPB 400 mg Volume: 200 ml; Route: IVPB; Infused Over: 60 mins; ha1 Site: right antecubital; 21:00 Follow up: Response: No adverse reaction; IV Status: Infusion continued; IV Intake: [id number] 20:31 Not Given (Patient Refused): Ketorolac IVP 30 mg IVP once ha1 21:43 Drug: morphine IVP or IV 4 mg Route: IVP; Infused Over: 4 mins; Site: right forearm; ha1 21:56 Follow up: Response: No adverse reaction; Pain is decreased; RASS: Alert and Calm (0) ha1 Medication: 21:35 VIS not applicable for this client. ha1 Intake: 15:45 IV: 1000ml; Total: 1000ml. kc6 20:10 IV: 100ml; Total: 1100ml. ha1 21:00 IV: 50ml; Total: 1150ml. ha1 Outcome: 18:09 Decision to Hospitalize by Provider. caro 21:56 Patient left the ED. rv1 21:56 Admitted to Med/surg accompanied by tech, via wheelchair, with chart, Report called to aden Peck RN 21:56 Condition: stable 21:56 Discharge instructions given to patient, family, Instructed on the need for admit. aden Signatures: Dispatcher [employer] Arcenio Jurado MD MD cha Williams, Irene, RN Sobeida Grace RN RN ph Slawson, Ashby, RN RN as6 Carlotta Casas RN RN ha1 Campbell, Kaitlyn, RN RN kc6 Bernardo Marquez MD MD rt Villegas, Rebecca 1 Maral Hall 8 Cassidy Brink 5
--- NOTE | 2022-11-22 18:10 | EDPHYS ---
Physician Documentation [facility] Name: Ben Rosa Age: 27 yrs Sex: Female : 1995 Arrival Date: 11/22/2022 Time: 13:55 Bed 13 Private MD: ED Physician Arcenio Chua HPI: 11/22 15:31 This 27 yrs old Female presents to ER via Wheelchair with complaints of Rectal rt discomfot, Nausea/Vomiting, Shortness Of Breath, Abdominal Pain, Constipation. 15:31 Patient with history of coronary disease with multiple fistulas presents to the ED with rt worsening rectal pain, nausea, vomiting for several days. Initially started with nausea, vomiting. Patient states that she believes that another fistula is popping up on her right buttock. Denies other acute complaints at this time. Symptoms are aching nature, nonradiating, moderate severity, no other aggravating or alleviating factors.. Historical: - Allergies: 14:17 Bactrim; iw 14:17 Iodine (rash); iw 14:17 PENICILLINS; iw - PMHx: 14:17 Crohn's; perianal fistula; facial trauma; iw - PSHx: 14:17 perianal fistula repair x 8; Adenoid excision; Tonsillectomy; iw - Immunization history:: Adult Immunizations up to date. - Social history:: Smoking status: Patient denies any tobacco usage or history of. - Family history:: not pertinent. ROS: 15:31 Constitutional: Negative for fever, chills, and weight loss, Cardiovascular: Negative rt for chest pain, palpitations, and edema, Respiratory: Negative for shortness of breath, cough, wheezing, and pleuritic chest pain, MS/Extremity: Negative for injury and deformity, Skin: Negative for injury, rash, and discoloration, Neuro: Negative for headache, weakness, numbness, tingling, and seizure, Psych: Negative for depression, anxiety, suicide ideation, homicidal ideation, and hallucinations. 15:31 Abdomen/GI: Positive for nausea and vomiting, Negative for abdominal pain. Exam: 15:31 Constitutional: This is a well developed, well nourished patient who is awake, alert, rt and in no acute distress. Head/Face: Normocephalic, atraumatic. Chest/axilla: Normal chest wall appearance and motion. Nontender with no deformity. No lesions are appreciated. Cardiovascular: Regular rate and rhythm with a normal S1 and S2. No gallops, murmurs, or rubs. Normal PMI, no JVD. No pulse deficits. Respiratory: Lungs have equal breath sounds bilaterally, clear to auscultation and percussion. No rales, rhonchi or wheezes noted. No increased work of breathing, no retractions or nasal flaring. Skin: Warm, dry with normal turgor. Normal color with no rashes, no lesions, and no evidence of cellulitis. MS/ Extremity: Pulses equal, no cyanosis. Neurovascular intact. Full, normal range of motion. Neuro: Awake and alert, GCS 15, oriented to person, place, time, and situation. Cranial nerves II-XII grossly intact. Motor strength 5/5 in all extremities. Sensory grossly intact. Cerebellar exam normal. Normal gait. Psych: Awake, alert, with orientation to person, place and time. Behavior, mood, and affect are within normal limits. 15:31 Abdomen/GI: No abdominal tenderness, distention. There is a slight discoloration with minimal tenderness noted to the right buttock at the area of concern. No palpable fluctuance.. Vital Signs: 14:15 BP 114 / 82; Pulse 92; Resp 22; Temp 98.4; Pulse Ox 98% on R/A; iw 15:20 Pulse 74; Resp 18; Temp 98.1; Pulse Ox 98% ; Pain 5/10; sm8 15:22 BP 125 / 88; Pulse 70; Resp 16 S; Pulse Ox 97% on R/A; kc6 17:02 BP 134 / 81; Pulse 70; Resp 18 S; Pulse Ox 92% on R/A; kc6 17:24 Pulse 100; Resp 17 S; Pulse Ox 97% on R/A; kc6 19:15 BP 103 / 73; Pulse 63; Resp 16 S; Pulse Ox 98% on R/A; ha1 20:30 BP 101 / 80; Pulse 89; Resp 17 S; Pulse Ox 99% on R/A; ha1 21:56 BP 104 / 81; Pulse 85; Resp 18 S; Pulse Ox 98% on R/A; ha1 15:20 Pain Scale: Adult sm8 MDM: 14:24 Patient medically screened. rt 18:01 Differential diagnosis: Nonspecific abd pain, diverticulitis. Data reviewed: vital caro signs, nurses notes, lab test result(s), radiologic studies, CT scan. Consideration of Admission/Observation Patient was admitted/placed on observation. I considered the following discharge prescriptions or medication management in the emergency department Medications were administered in the Emergency Department. See MAR. Independent interpretation of the following test(s) in the Emergency Department CT Scan: My interpretation is ct abd/pelvis. Test considered but Not performed: Ultrasound no abd usg. Historians other than the Patient: Family Member: family. Care significantly affected by the following chronic conditions: Crohns. 11/22 14:32 Order name: CBC with Diff; Complete Time: 15:30 rt 11/22 14:32 Order name: CMP; Complete Time: 15:30 rt 11/22 14:32 Order name: Lipase; Complete Time: 15:30 rt 11/22 14:32 Order name: Test, Urine; Complete Time: 15:59 rt 11/22 14:32 Order name: Urinalysis w/ reflexes; Complete Time: 15:51 rt 11/22 20:05 Order name: Urinalysis w/ reflexes EDMS 11/22 20:05 Order name: Basic Metabolic Panel EDMS 11/22 20:05 Order name: Basic Metabolic Panel; Complete Time: 07:43 EDMS 11/22 20:05 Order name: Basic Metabolic Panel EDMS 11/22 20:05 Order name: Basic Metabolic Panel EDMS 11/22 20:05 Order name: CBC with Automated Diff EDMS 11/22 20:05 Order name: CBC with Automated Diff; Complete Time: 07:43 EDMS 11/22 20:05 Order name: CBC with Automated Diff EDMS 11/22 20:05 Order name: CBC with Automated Diff EDMS 11/22 20:05 Order name: Magnesium EDMS 11/22 20:05 Order name: Magnesium; Complete Time: 07:43 EDMS 11/22 20:05 Order name: Magnesium EDMS 11/22 20:05 Order name: Magnesium EDMS 11/22 14:32 Order name: CT Abd/Pelvis - Without Contrast; Complete Time: 21:18 rt 11/22 20:16 Order name: Abdomen Exam Complete EDMS 11/22 19:59 Order name: CONS Physician Consult EDNM 11/22 20:05 Order name: NPO EDMS 11/22 14:32 Order name: IV Saline Lock; Complete Time: 14:34 rt 11/22 14:32 Order name: Labs collected and sent; Complete Time: 14:34 rt Administered Medications: 14:54 Drug: NS 0.9% IV 1000 ml Route: IV; Rate: 1 bolus; Site: right antecubital; kc6 15:45 Follow up: Response: No adverse reaction; IV Status: Completed infusion; IV Intake: kc6 1000ml 14:54 Drug: Ondansetron IVP 4 mg Route: IVP; Site: right antecubital; kc6 15:30 Follow up: Response: No adverse reaction; Nausea is decreased; Vomiting decreased kc6 14:54 Drug: morphine IVP or IV 4 mg Route: IVP; Infused Over: 4 mins; Site: right antecubital;kc6 15:30 Follow up: Response: No adverse reaction; Pain is decreased; RASS: Alert and Calm (0) kc6 16:42 Drug: Promethazine IVP 12.5 mg Route: IVP; Site: right antecubital; ph 17:23 Follow up: Response: No adverse reaction; Nausea is decreased; Vomiting decreased 6 18:30 Drug: metroNIDAZOLE IVPB 500 mg Volume: 100 ml; Route: IVPB; Rate: 200 ml/hr; Infused kc6 Over: 30 mins; Site: right antecubital; 20:10 Follow up: Response: No adverse reaction; IV Status: Completed infusion; IV Intake: ha1 100ml 18:30 Drug: NS 0.9% with KCl IV 20 mEq/L 1000 ml Route: IV; Rate: 125 ml/hr; Site: right kc6 antecubital; 18:34 Drug: clonazePAM PO 1 mg Route: PO; kc6 19:15 Follow up: Response: No adverse reaction; Anxiety decreased; RASS: Alert and Calm (0) kc6 20:15 Drug: Ciprofloxacin IVPB 400 mg Volume: 200 ml; Route: IVPB; Infused Over: 60 mins; ha1 Site: right antecubital; 21:00 Follow up: Response: No adverse reaction; IV Status: Infusion continued; IV Intake: [id number] 20:31 Not Given (Patient Refused): Ketorolac IVP 30 mg IVP once ha1 21:43 Drug: morphine IVP or IV 4 mg Route: IVP; Infused Over: 4 mins; Site: right forearm; ha1 21:56 Follow up: Response: No adverse reaction; Pain is decreased; RASS: Alert and Calm (0) ha1 Disposition Summary: 11/22/22 18:09 Hospitalization Ordered Hospitalization Status: Inpatient Admission caro Provider: Chandler Alvarado cha Location: Telemetry/MedSurg (Inpatient) caro Condition: Stable caro Problem: new caro Symptoms: have improved caro Bed/Room Type: Standard [facility] Room Assignment: 215(11/22/22 20:30) eb1 Diagnosis - Vomiting caro - Left sided colitis - rectal pain caro - Crohn's disease, unspecified, without complications caro - Elevated white blood cell count caro - Hypokalemia caro Forms: - Medication Reconciliation Form caro - SBAR form caro - Leadership Thank You Letter caro Signatures: Dispatcher [employer] Arcenio Jurado MD MD cha Williams, Irene RN JORGE LUIS Sobeida Oliver RN RN Serena Silva RN RN eb1 German Abraham RN RN as6 Carlotta Casas RN RN ha1 Cecille Duenas RN RN kc6 Bernardo Marquez MD MD rt Corrections: (The following items were deleted from the chart) 20:30 18:09 caro eb1
--- NOTE | 2022-11-22 18:17 | P.HP ---
Certification for Inpatient Patient admitted to: Inpatient With expected LOS: <2 Midnights Patient will require the following post-hospital care: None Practitioner: I am a practitioner with admitting privileges, knowledge of patient current condition, hospital course, and medical plan of care. Services: Services provided to patient in accordance with Admission requirements found in Title 42 Section 412.3 of the Code of Federal Regulations Patient History Date of Service: 11/22/22 Reason for admission: Intractable NV ABD pain History of Present Illness: 27-year-old female with a past medical history of Crohn's disease previous Crohns to the ER with nausea and vomiting x3 days. She reports associated unable to tolerate p.o. intake x2 to 3 days due to persistent nausea vomiting, she reports low-grade fever today. She reports left upper quadrant, left lower quadrant abdominal tenderness. She reports history of fistula, with surgical intervention for cecotomy for cleanout. She reports history of anxiety, worsened with the nausea vomiting. She denies chest pain, cough, rectal bleeding, hematemesis,. Plan to admit for colitis, leukocytosis, intractable nausea vomiting abdominal pain. Laboratory evaluation CBC leukocytosis WBCs 15.40, mild hypokalemia 3.3, blood sugar 128, BUN and creatinine normal, UA negative CT of the abdomen no acute intra-abdominal findings, abdominal ultrasound ordered. Allergies Penicillins Allergy (Verified 02/20/20 02:36) Unknown sulfamethoxazole [From Bactrim] Allergy (Verified 02/20/20 02:36) Unknown trimethoprim [From Bactrim] Allergy (Verified 02/20/20 02:36) Unknown Home Medications: Ciprofloxacin HCl [Cipro 500 MG Tablet] 500 mg PO BID #20 tab 02/23/20 Codeine/APAP [Tylenol W/Codeine #3 tab] 1 tab PO Q6HP PRN #30 tab 02/23/20 Ibuprofen [Advil] 400 mg PO TID PRN #30 tablet 02/23/20 metroNIDAZOLE [Flagyl] 500 mg PO Q8H #30 tablet 02/23/20 - Past Medical/Surgical History Diabetic: No -: Fistula surgery 3x -: 3 adenoid surgery -: tonsillectomy - Family History Father -: Heart disease, Hypertension Mother -: Hypertension, Seizures, Other (see notes) - Social History Alcohol use: No CD- Drugs: No Caffeine use: Yes Review of Systems 10-point ROS is otherwise unremarkable Physical Examination - Physical Exam General: Alert, In no apparent distress, Oriented x3, Other (Moderate amount of anxiety,) HEENT: Atraumatic, Normocephalic, PERRLA Neck: Supple, 2+ carotid pulse no bruit Respiratory: Clear to auscultation bilaterally, Normal air movement Cardiovascular: No edema, Normal pulses, Irregular heart rate/rhythm Capillary refill: <2 Seconds Gastrointestinal: Normal bowel sounds, Tenderness (Left upper quadrant, left lower quadrant tenderness, no rebound tenderness) Musculoskeletal: No clubbing, No swelling, Other (Moderate generalized weakness, mod-max assist x1) Integumentary: No rashes, No breakdown Neurological: Normal speech, Normal strength at 5/5 x4 extr - Studies Laboratory Data (last 24 hrs) 11/22/22 11/22/22 14:42 14:42 WBC 15.40 H Hgb 14.2 Hct 41.7 Plt Count 270 Sodium 139 Potassium 3.3 L BUN 8 Creatinine 1.02 Glucose 128 H Total Bilirubin 0.5 AST 11 L ALT 19 Alkaline Phosphatase 78 Lipase 28 Assessment and Plan - Plan Assessment/Plan Intractable abdominal pain Intractable nausea vomiting Hypokalemia Crohn's flare Colitis Anxiety History of abdominal/rectal fistula DVT prophylaxis Assessment/Plan Intractable abdominal pain Intractable nausea vomiting Crohn's flare Colitis History of rectal/abdominal fistula Surgical consult, IV fluids, IV Cipro, IV Flagyl, as needed antiemetics, as needed analgesics Abdominal ultrasound imaging ordered due to CT limited visibility due to limited contrast Laboratory evaluation CBC leukocytosis WBCs 15.40, UA negative CT of the abdomen no acute intra-abdominal findings, abdominal ultrasound ordered. Hypokalemia Trend electrolytes replace as needed Anxiety As needed[employer] analytics DVT prophylaxis Diet n.p.o. Full code Discharge Plan: Detention Plan to discharge in: 48 Hours - Advance Directives Does patient have a Living Will: No Does patient have a Durable POA for Healthcare: No - Code Status/Comfort Care Code Status: Full Code Physician Review: Patient Assessed, Agree with Above Assessment and Plan Critical Care: No Time Spent Managing Pts Care (In Minutes): 50
[2022-11-22] MEDS ORDERED: NS KCL 20MEQ 1,000 ML IV ONE (18:23)
[2022-11-22] MEDS ORDERED: CIPROFLOXACIN 400mg IV 400 MG/200 ML BAG IV ONE (18:23)
[2022-11-22] MEDS ORDERED: METRONIDAZOLE 500mg IVPB 500 MG/100 ML BAG IV ONE (18:23)
[2022-11-22] MEDS ORDERED: clonazePAM 1 MG TAB ONE (18:42)
--- NOTE | 2022-11-22 19:41 | RAD REPORT ---
EXAM DESCRIPTION: CT - Abdomen Pelvis Wo Contrast - 11/22/2022 7:26 pm CLINICAL HISTORY: Abdominal pain. ABD PAIN COMPARISON: Abdomen Pelvis Wo Contrast dated 06/10/2021 TECHNIQUE: CT imaging of the abdomen and pelvis was performed without contrast. Solid organ, bowel a nd vascular assessment is limited due to lack of IV and oral contrast. All CT scans are performed using dose optimization technique as appropriate and may include automated exposure control or mA/KV adjustment according to patient size. FINDINGS: The lower lung solano are clear. The liver, spleen, pancreas, adrenal glands and kidneys are within normal limits for a limited non-co ntrast examination. No bowel obstruction, free air, free fluid or abscess. The appendix is normal. The osseous structures are within normal limits.IUD is present in the uterus. IMPRESSION: No acute intra-abdominal or pelvic findings. A limited non-contrast examination was performed as detailed.
[2022-11-22] MEDS ORDERED: NA CHLORIDE 0.9% 500 ML ONE (19:49)
[2022-11-22] MEDS ORDERED: SODIUM CHLORIDE 0.9% 10ML INJ IV PRN (20:03)
[2022-11-22] MEDS ORDERED: KETOROLAC 30 MG/ML INJ IV PRN (20:03)
[2022-11-22] MEDS ORDERED: ONDANSETRON 4 MG/2 ML VIAL IV PRN (20:03)
[2022-11-22] MEDS ORDERED: ACETAMINOPHEN 500 MG TAB PO PRN (20:03)
[2022-11-22 22:10] VITALS: BMI 37.3
[2022-11-22] MEDS: NA CHLORIDE 0.9% 1,000 ML IV SCH (22:47)
[2022-11-23] MEDS: METRONIDAZOLE 500mg IVPB 500 MG/100 ML BAG IV SCH ×3 (00:12→16:00)
[2022-11-23] MEDS ORDERED: PROMETHAZINE INJ 25 MG/ML AMP ONE (00:16)
[2022-11-23] MEDS: MORPHINE 4 MG/ML SYR IV PRN ×3 (00:23→21:13)
[2022-11-23 03:41] LABS: Potassium 3.5 mEq/L (3.5-5.1)
[2022-11-23 03:42] LABS: Hematocrit 34.2 % (36.0-45.0); Lymphocytes % 30.4 % (15.3-44.8); MCV 91.3 fL (80-100); MPV 10.1 fL (7.6-11.3); Platelets 224 thou/uL (152-406); RBC Red Blood Cell Count 3.74 M/uL (3.86-4.86)
[2022-11-23] MEDS: CIPROFLOXACIN 400mg IV 400 MG/200 ML BAG IV SCH ×3 (05:20→20:10)
[2022-11-23] MEDS ORDERED: KCL 20 MEQ/100 mL IVPB 20 MEQ/100 ML BAG IV SCH (08:00)
[2022-11-23] MEDS: ENOXAPARIN 40 MG/0.4 ML SQ SCH (08:09)
[2022-11-23] MEDS: PANTOPRAZOLE 40 MG INJ IVP SCH ×2 (08:09→20:10)
--- NOTE | 2022-11-23 08:14 | RAD REPORT ---
EXAM DESCRIPTION: US - Abdomen Exam Complete - 11/23/2022 12:02 am CLINICAL HISTORY: Abdominal pain. Abdominal pain. LUQ, LLQ, history fistula COMPARISON: Abdomen Exam Limited dated 09/27/2015 FINDINGS: The liver is normal in size, shape and echotexture. No focal liver lesions or intrahepatic biliary dilatation is seen. The gallbladder demonstrates no gallstones, pericholecystic fluid or gallbladder wall thickening. Co mmon bile duct is normal in caliber measuring 4 mm. Both kidneys are normal in size, shape and echotexture. No hydronephrosis, focal lesion of concern or perinephric fluid. The spleen is normal in size measuring 10 cm. The pancreas and aorta are obscured by bowel gas. The visualized aspects of the IVC are grossly normal. IMPRESSION: Unremarkable study except for limited assessment of the pancreas and aorta due to bowel gas.
[2022-11-23] MEDS: PROMETHAZINE 25 MG TABLET PO PRN ×2 (09:28→21:12)
[2022-11-23 09:47] VITALS: O2SAT 97
[2022-11-23] MEDS: clonazePAM 1 MG TAB PO PRN ×2 (10:48→21:12)
[2022-11-23] MEDS ORDERED: LORazepam 2 MG/ML VIAL IV ONE (10:59)
--- NOTE | 2022-11-23 15:23 | P.PN ---
Subjective Date of Service: 11/23/22 Chief Complaint: Intractable NV ABD pain Patient vomited after meals today. She is complaining of intermittent abdominal pain. Physical Examination - Vital Signs Temperature: 97.4 F Blood Pressure: 95/54 Pulse: 46 Respirations: 14 Pulse Ox (%): 97 - Studies Laboratory Data (last 24 hrs) 11/22/22 11/22/22 14:42 14:42 WBC 15.40 H Hgb 14.2 Hct 41.7 Plt Count 270 Sodium 139 Potassium 3.3 L BUN 8 Creatinine 1.02 Glucose 128 H Total Bilirubin 0.5 AST 11 L ALT 19 Alkaline Phosphatase 78 Lipase 28 Assessment And Plan - Plan Physical Exam General: Alert, In no apparent distress, Oriented x3. Respiratory: Clear to auscultation bilaterally, Normal air movement Cardiovascular: No edema, Normal pulses, Irregular heart rate/rhythm Gastrointestinal: Normal bowel sounds, Tenderness (Left upper quadrant, left lower quadrant tenderness, no rebound tenderness) Musculoskeletal: No clubbing, No swelling, Other (Moderate generalized weakness, mod-max assist x1) Integumentary: No rashes, No breakdown Neurological: Normal speech, Normal strength at 5/5 x4 extr Assessment/Plan Intractable abdominal pain Intractable nausea vomiting Hypokalemia Colitis Anxiety History of abdominal/rectal fistula DVT prophylaxis Assessment/Plan Intractable abdominal pain Intractable nausea vomiting Crohn's flare Colitis History of rectal/abdominal fistula Patient reports prior history of anorectal fistula. Surgical consult appreciated. No surgical intervention. She is still experiencing nausea and vomiting Continue IV fluids, IV Cipro, IV Flagyl, as needed antiemetics, as needed analgesics. Hypokalemia Corrected Monitor BMP DVT prophylaxis: Lovenox Diet clear liquid diet. Full code
[2022-11-23] MEDS: NA CHLORIDE 0.9% 1,000 ML IV SCH (15:49)
--- NOTE | 2022-11-23 22:48 | CON ---
Date of Consultation: 11/23/2022 Brief History Of Present Illness: The patient is a 27-year-old female who presents to the hospital w ith protracted 3-4 days of continuous nausea, vomiting, and epigastric abdominal pain. The pain pred ominantly is actually in the left upper quadrant and down to the left lower quadrant with minimal rad iation to the epigastrium. She states that the epigastric pain is predominantly with heaving, but re sidual abdominal pain is present in a crescendo-decrescendo type fashion, more so in the left upper a nd left lower quadrants. She has not had similar episodes before in the past. She was being worked up for Crohn disease by Dr. Leon. She has had an upper endoscopy, colonoscopy, which she states did not give a definitive diagnosis. She has never had a formal diagnosis of Crohn disease. She is due to have pill endoscopy and continued workup with Dr. Leon to discern a true working diagnosis . She states that she has had multiple fistulas in the perianal region treated surgically on multipl e different occasions. She has seen multiple surgeons including Colorectal for multiple setons both cutting and noncutting setons. She has had open fistulotomies performed on several occasions as she continues to have recurrence in this area. She is unaware of a diagnosis of why she has had so many recurrent perianal fistulas and as such she feels that she has intermittent episodes and might have m inimal amounts of drainage at this time. Past Medical History: Significant for possible Crohn disease, multiple perianal fistulas. Past Surgical History: Includes tonsillectomy, adenoidectomy. At least, 3 perianal fistula surgerie s. Allergies: PENICILLIN, SULFA, AND BACTRIM. Home Medications: Include Cipro, codeine, ibuprofen, and Flagyl. Social History: She denies alcohol. She smokes marijuana only recreationally. She vapes regularly. 10-point review of systems other than HPI, denies. Physical Examination: General: At the time of examination, she is awake, alert, oriented. Psychiatric: Appropriate, conversive. HEENT: She is normocephalic. Sclerae are icteric. Mucous membranes are moist. Oropharynx is clear . Neck: Supple without JVD. Chest: Normal expansion and excursion. Cardiovascular: Regular rate and rhythm. Pulmonary: Clear to auscultation bilaterally. Abdomen: Soft, nontender, nondistended. No rebound. No guarding. No focal peritonitis. Rectal: During my examination, a perirectal exam was performed and she has 2 areas where previous fi stulas are evident. There is no drainage at this point, no tenderness, no fluid collections and no o ther obvious findings on the perianal exam. Skin: There is no skin breakdown or other abnormal findings. The remainder of her skin exam is esse ntially unremarkable. Vital Signs: She had a blood pressure of 95/54, pulse was 46, respiratory rate is 14, temperature 97 .4. Pain level is 0 during my examination. SpO2 of 97% on room air. Laboratory Data: She had laboratory exam, which revealed a white blood cell count of 13.2, hemoglobi n 11.9, hematocrit 34.2, platelet count was 224, neutrophils are 61%. Her sodium 140, potassium 3.5, chloride 110, carbon dioxide is 26, BUN 8, creatinine 0.81, glucose is 88, calcium 8.0. Magnesium i s 2.0. Total bilirubin on admission was 0.5, AST 11, ALT 19, alkaline phosphatase is 78. Her lipase is 28 on admission. UA was essentially negative. test was negative. She had imaging per formed, which included a CT of the abdomen and pelvis, which is essentially unremarkable. She additi onally had an ultrasound, which only showed an unremarkable study, except for limited assessment of p ancreas due to aorta and bowel-gas pattern. As such, she has 2 negative imaging studies. Assessment And Plan: This is a 27-year-old female who comes in with currently persistent nausea, vom iting of uncertain etiology. 1.IV fluid hydration. 2.Serial abdominal exams. 3.Recommend reaching out to Dr. Leon to see if he is available to continue his evaluation of the patient for her ongoing likely chronic condition contributing to her overall recurrent bowel disease , possible Crohn disease. 4.Continue medical management per primary team. 5.She has no indication for surgical intervention at this time and as such I will follow along with you. Thank you for this interesting consult. TEAGAN/MERCEDES Voice ID: [id number] Report ID: [id number]
[2022-11-24] MEDS: METRONIDAZOLE 500mg IVPB 500 MG/100 ML BAG IV SCH ×2 (02:03→08:07)
[2022-11-24] MEDS: NA CHLORIDE 0.9% 1,000 ML IV SCH (05:25)
[2022-11-24] MEDS: ENOXAPARIN 40 MG/0.4 ML SQ SCH (08:07)
[2022-11-24] MEDS: PANTOPRAZOLE 40 MG INJ IVP SCH (08:08)
[2022-11-24] MEDS: PROMETHAZINE 25 MG TABLET PO PRN (08:53)
[2022-11-24] MEDS: clonazePAM 1 MG TAB PO PRN (08:53)
[2022-11-24] MEDS: CIPROFLOXACIN 400mg IV 400 MG/200 ML BAG IV SCH (09:15)
[2022-11-24 10:16] LABS: Absolute Lymphocytes (CBC) 2.5 K/uL (0.7-4.9); Hematocrit 36.6 % (36.0-45.0); Lymphocytes % 22.7 % (15.3-44.8); MCV 92.2 fL (80-100); MPV 10.1 fL (7.6-11.3); Platelets 195 thou/uL (152-406); RBC Red Blood Cell Count 3.97 M/uL (3.86-4.86)
[2022-11-24 10:38] LABS: Magnesium 1.9 mg/dL (1.6-2.4); Potassium 3.8 mEq/L (3.5-5.1)
[2022-11-24 12:49] LABS: C.diff Antigen/Toxin Ag neg : Tox neg (NEG : NEG)
[2022-11-24] MEDS ORDERED: POTASSIUM CL SA 10 MEQ TAB PO ONE (13:00)
[2022-11-24 14:18] VITALS: BP 128/78; TEMP 97.8
--- NOTE | 2022-11-24 17:30 | P.DS ---
Admission Date: 11/22/22 Discharge Date: 11/24/22 Disposition: ROUTINE DISCHARGE Discharge Condition: FAIR Reason for Admission: Intractable NV ABD pain Brief History of Present Illness: 27-year-old female with a suspected history of Crohn's disease presented to the ER with nausea and vomiting x3 days. She reported she was unable to tolerate p.o. intake for 3 days due to persistent nausea vomiting. She reported low-grade fever. Symptoms are associated with abdominal pain. She reports history of fistula, with surgical intervention for cecotomy for cleanout. She reports history of anxiety, worsened with the nausea vomiting. She denied chest pain, cough, rectal bleeding, hematemesis,. Laboratory evaluation showed leukocytosis WBCs 15.40, mild hypokalemia 3.3, blood sugar 128, BUN and creatinine normal, UA negative CT of the abdomen no acute intra-abdominal findings. Patient was hospitalized for further management. 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 Surgical consult appreciated. No surgical intervention. She was treated with IV fluid,IV Cipro, IV Flagyl, as needed antiemetics, as needed analgesics. Patient symptoms gradually improved. Diet was advanced from clear liquid to full liquid which she tolerated. She experienced some bouts of diarrhea. Vitals were overall stable. She is tolerating diet and medications and deemed stable for discharge. Patient is informed to follow-up with her GI to confirm her diagnosis of Crohn's disease and for evaluation for immunotherapy given that she has an a rectal fistula. Hypokalemia Corrected with IV replacement. Vital Signs/Physical Exam: Temp Pulse Resp BP Pulse Ox 97.8 F 70 16 128/78 96 11/24/22 12:00 11/24/22 12:00 11/24/22 12:00 11/24/22 12:11/24/22 12:00 General: Alert, In no apparent distress, Oriented x3 HEENT: Mucous membr. moist/pink Neck: Supple, JVD not distended Respiratory: Clear to auscultation bilaterally, Normal air movement Cardiovascular: No edema, Regular rate/rhythm, Normal S1 S2 Gastrointestinal: Normal bowel sounds, Soft and benign, Non-distended, Other (Mild diffuse tenderness) Musculoskeletal: No swelling Integumentary: No rashes, No erythema Neurological: Normal strength at 5/5 x4 extr Laboratory Data at Discharge: WBC 10.90 thou/uL (4.3-10.9) 11/24/22 09:52 Hgb 12.2 g/dL (12.0-15.0) 11/24/22 09:52 Hct 36.6 % (36.0-45.0) 11/24/22 09:52 Plt Count 195 thou/uL (152-406) 11/24/22 09:52 Sodium 138 mEq/L (136-145) 11/24/22 09:52 Potassium 3.8 mEq/L (3.5-5.1) 11/24/22 09:52 BUN 6 mg/dL (7-18) L 11/24/22 09:52 Creatinine 0.85 mg/dL (0.55-1.02) 11/24/22 09:52 Glucose 106 mg/dL (74-106) 11/24/22 09:52 Magnesium 1.9 mg/dL (1.6-2.4) 11/24/22 09:52 Total Bilirubin 0.5 mg/dL (0.2-1.0) 11/22/22 14:42 AST 11 U/L (15-37) L 11/22/22 14:42 ALT 19 U/L (13-56) 11/22/22 14:42 Alkaline Phosphatase 78 U/L (45-117) 11/22/22 14:42 Lipase 28 U/L (13-75) 11/22/22 14:42 Home Medications: Ciprofloxacin HCl [Cipro 500 MG Tablet] 500 mg PO BID #10 tab 11/24/22 Codeine/APAP [Tylenol #3*] 1 tab PO Q6HP PRN #15 tab 11/24/22 Pantoprazole [Protonix Tab] 40 mg PO BID #30 tab 11/24/22 Promethazine Tab [Phenergan*] 25 mg PO Q6HP PRN #15 tab 11/24/22 metroNIDAZOLE [Flagyl*] 500 mg PO Q8H #15 tablet 11/24/22 New Medications: Promethazine Tab [Phenergan*] 25 mg PO Q6HP PRN #15 tab PRN Reason: Nausea / Vomiting Codeine/APAP [Tylenol #3*] 1 tab PO Q6HP PRN #15 tab PRN Reason: Pain Ciprofloxacin HCl [Cipro 500 MG Tablet] 500 mg PO BID #10 tab metroNIDAZOLE [Flagyl*] 500 mg PO Q8H #15 tablet Pantoprazole [Protonix Tab] 40 mg PO BID #30 tab Physician Discharge Instructions: We recommend you 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 Progress from full liquid diet to soft diet as tolerated. Diet: Progressed Activity: Ad erick Followup: Dilshad Gomez PA [Primary Care Provider] - 1-2 Weeks Time spent managing pt's care (in minutes): 35
== END 2022-11-24 15:18 | disposition home or self-care (01) | DRG 387 ==
LOC: ER 13:55 → 2ND 19:55
PROVIDERS: ADMIT Internal Medicine; ATTEND Internal Medicine
DX: K51.513 Left sided colitis with fistula (principal); E87.6 Hypokalemia; F41.9 Anxiety disorder, unspecified; K59.00 Constipation, unspecified; D72.829 Elevated white blood cell count, unspecified; Z88.1 Allergy status to other antibiotic agents; Z88.0 Allergy status to penicillin; Z91.048 Other nonmedicinal substance allergy status; Z79.899 Other long term (current) drug therapy; Z20.822 Contact with and (suspected) exposure to COVID-19
CPT/HCPCS: 36415; 74176; 76700; 80048; 80053; 81001; 81025; 83690; 83735; 85025; 87045; 87046; 87177; 87209; 87324; 87329; 87635; 89055; 99285; C9113; J0744; J1650; J2405; J2550; J3480; J7030; J7040; Q0169

== ENCOUNTER 2023-07-10 10:25 | Emergency (ER) | payer SELFPAY ==
--- NOTE | 2023-07-10 12:05 | RAD REPORT ---
EXAM DESCRIPTION: Darren Single View07/10/2023 11:47 am CLINICAL HISTORY: Shortness of breath COMPARISON: 2022 FINDINGS: The lungs appear clear of acute infiltrate. The heart is normal size IMPRESSION: No acute abnormalities displayed
[2023-07-10 12:25] LABS: SARS-CoV-2 Antigen CONTROL BLUE LINE VIS/BG OK
[2023-07-10 12:26] LABS: SARS-CoV-2 Antigen Rapid Res Positive (Negative)
--- NOTE | 2023-07-10 12:30 | EDPHYS ---
Physician Documentation [facility] Name: Ben Rosa Age: 28 yrs Sex: Female : 1995 Arrival Date: 07/10/2023 Time: 10:25 Bed DX4 Private MD: ED Physician Fidel Salazar HPI: 07/09 12:31 This 28 yrs old Female presents to ER via Ambulatory with complaints of Flu Symptoms. ec2 12:31 Patient arrives today for URI signs symptoms. Patient with several days of symptoms, ec2 cough and congestion, body aches, no fevers or chills, no nausea or vomiting. Patient reports generally feeling unwell. Historical: - Allergies: 10:36 Iodine (rash); ll1 10:36 Bactrim; ll1 10:36 PENICILLINS; ll1 - PMHx: 10:36 Crohn's; facial trauma; perianal fistula; ll1 - PSHx: 10:36 Adenoid excision; perianal fistula repair x 8; Tonsillectomy; ll1 - Immunization history:: Adult Immunizations up to date. - Infectious Disease History:: Denies. - Social history:: Smoking status: Patient denies any tobacco usage or history of. ROS: 12:31 Constitutional: as per hpi ec2 Exam: 12:31 Constitutional: GEN: NAD Head: atraumatic Eyes: EOMI Ears: External ears are ec2 normal. CV: regular rate LUNGS: no respiratory distress ABD: non-distended SKIN: no evidence of rashes MSK: no evidence of trauma NEURO: moves all extremities equally Vital Signs: 10:44 BP 106 / 64; Pulse 93; Resp 18; Temp 98.6; Pulse Ox 100% ; Pain 4/10; ll1 10:44 Pain Scale: Adult ll1 MDM: 11:18 Patient medically screened. ec2 12:31 Data reviewed: vital signs. ED course: Patient arrives today for URI signs symptoms. ec2 Examination remarkable for well-appearing nontoxic dividual's otherwise in no acute distress. Patient positive for COVID, presentation consistent viral infection. Will discharge home, work is provided. Return precautions given. 07/09 11:18 Order name: Influenza Screen (a \T\ B); Complete Time: 12:29 ec2 07/09 11:18 Order name: Strep ec2 07/09 11:18 Order name: SARS RAPID; Complete Time: 12:29 ec2 07/09 12:14 Order name: Throat Culture EDMS 07/09 11:18 Order name: CXR XRAY; Complete Time: 12:29 ec2 Administered Medications: No medications were administered Disposition Summary: 07/10/23 12:29 Discharge Ordered Notes: Location: Home ec2 Condition: Stable ec2 Diagnosis - SARS-associated coronavirus as the cause of diseases classified elsewhere ec2 Followup: ec2 - With: Private Physician - When: - Reason: Re-evaluation by your physician Discharge Instructions: - Discharge Summary Sheet ll1 - Viral Illness, Adult ec2 Forms: - Work release form ll1 - Medication Reconciliation Form ec2 - Thank You Letter ec2 - Antibiotic Education ec2 - Prescription Opioid Use ec2 - Patient Portal Instructions ec2 - Leadership Thank You Letter ec2 Signatures: Dispatcher [employer] Ginger Keith RN RN ll1 German Abraham RN RN as6 Fidel Salazar MD MD ec2
--- NOTE | 2023-07-10 12:30 | ER ---
Nurse's Notes [facility] Name: Ben Rosa Age: 28 yrs Sex: Female : 1995 Arrival Date: 07/10/2023 Time: 10:25 Bed DX4 Private MD: Diagnosis: SARS-associated coronavirus as the cause of diseases classified elsewhere Presentation: 07/09 10:44 Chief complaint: Patient states: Cough, SOB, GRESHAM, congestion, sore throat, fatigue, N/V ll1 started Sunday. Family had similar symptoms last week. Coronavirus screen: Client denies travel out of the [place] in the last 14 days. congestion, cough unrelated to allergies, fatigue, headache, muscle pain, sore throat, Client presents with at least one sign or symptom that may indicate coronavirus-19. Standard/surgical mask placed on the client. Ebola Screen: Patient denies travel to an Ebola-affected area in the 21 days before illness onset. Initial Sepsis Screen: Does the patient meet any 2 criteria? No. Patient's initial sepsis screen is negative. Does the patient have a suspected source of infection? No. Patient's initial sepsis screen is negative. Risk Assessment: Do you want to hurt yourself or someone else? Patient reports no desire to harm self or others. Onset of symptoms was July 08, 2023. 10:44 Method Of Arrival: Ambulatory ll1 10:44 Acuity: JOSE 3 ll1 Historical: - Allergies: 10:36 Iodine (rash); ll1 10:36 Bactrim; ll1 10:36 PENICILLINS; ll1 - PMHx: 10:36 Crohn's; facial trauma; perianal fistula; ll1 - PSHx: 10:36 Adenoid excision; perianal fistula repair x 8; Tonsillectomy; ll1 - Immunization history:: Adult Immunizations up to date. - Infectious Disease History:: Denies. - Social history:: Smoking status: Patient denies any tobacco usage or history of. Screenin:36 [facility] ED Fall Risk Assessment (Adult) History of falling in the last 3 months, as6 including since admission No falls in past 3 months (0 pts) Confusion or Disorientation No (0 pts) Intoxicated or Sedated No (0 pts) Impaired Gait No (0 pts) Mobility Assist Device Used No (0 pt) Altered Elimination No (0 pt) Score/Fall Risk Level 0 - 2 = Low Risk Oriented to surroundings, Maintained a safe environment, Educated pt \T\ family on fall prevention, incl call for assistance when getting out of bed, Assessed \T\ reinforced patient's understanding of fall precautions, Hourly rounding (assess needs \T\ fall precautionary measures) done. Abuse screen: Denies threats or abuse. Denies injuries from another. Nutritional screening: No deficits noted. Tuberculosis screening: No symptoms or risk factors identified. Assessment: 12:37 General: Appears in no apparent distress. ill, Behavior is calm, cooperative. Pain: as6 Complains of pain in generalized. Respiratory: Reports cough that is Airway is patent Trachea midline Respiratory effort is even, unlabored, Respiratory pattern is regular, symmetrical. EENT: Reports nasal congestion nasal discharge. Vital Signs: 10:44 BP 106 / 64; Pulse 93; Resp 18; Temp 98.6; Pulse Ox 100% ; Pain 4/10; ll1 10:44 Pain Scale: Adult ll1 ED Course: 10:29 Patient arrived in ED. mg5 10:36 Arm band placed on. ll1 10:42 Fidel Salazar MD is Attending Physician. ec2 10:47 Triage completed. ll1 11:38 SARS RAPID Sent. jr12 11:38 Strep Sent. jr12 11:38 Influenza Screen (a \T\ B) Sent. jr12 11:49 CXR XRAY In Process Unspecified. EDMS 12:33 Notified ED physician of a critical lab result(s). covid positive. ll1 12:36 Patient has correct armband on for positive identification. Provided Education on: how as6 to care for COVID. 12:37 No provider procedures requiring assistance completed. Patient did not have IV access as6 during this emergency room visit. Administered Medications: No medications were administered Medication: 12:36 VIS not applicable for this client. as6 Outcome: 12:29 Discharge ordered by MD. ec2 12:36 Discharged to home ambulatory, as6 12:36 Condition: stable 12:36 Discharge instructions given to patient, Instructed on discharge instructions, follow up and referral plans. Demonstrated understanding of instructions, follow-up care, 12:38 Patient left the ED. as6 Signatures: Dispatcher [employer] Ginger Keith, JORGE LUIS RN ll1 German Abraham RN RN as6 Cassidy Brink mg5 Fidel Salazar MD MD ec2 Natalia Calvillo jr12
[2023-07-10 13:24] VITALS: BP 106/64; TEMP 98.6; O2SAT 100
== END 2023-07-10 12:38 | disposition home or self-care (01) ==
LOC: ER 10:25
DX: U07.1 COVID-19 (principal)
CPT/HCPCS: 36415; 71045; 87070; 87081; 87804; 87811; 99283

== ENCOUNTER 2023-08-28 09:13 | Emergency (ER) | payer BC, SELFPAY ==
[2023-08-28] MEDS ORDERED: ONDANSETRON 4 MG/2 ML VIAL ONE (09:43)
[2023-08-28] MEDS ORDERED: NA CHLORIDE 0.9% 1,000 ML ONE (09:43)
[2023-08-28 09:49] LABS: Absolute Basophils 0.1 K/uL (0-0.5); Absolute Eosinophils 0.3 K/uL (0-0.5); Absolute Lymphocytes (CBC) 2.3 K/uL (0.7-4.9); Absolute Monocytes 0.6 K/uL (0.1-1.3); Absolute Neutrophil 7.1 K/uL (1.8-8.0); Basophils % 0.7 % (0-1.3); Eosinophils % 3.1 % (0-4.4); Hematocrit 41.2 % (36.0-45.0); Hemoglobin 13.8 g/dL (12.0-15.0); Lymphocytes % 22.5 % (15.3-44.8); MCH 30.6 pg (27.0-35.0); MCHC 33.5 g/dL (32.0-36.0); MCV 91.5 fL (80-100); MPV 9.8 fL (7.6-11.3); Monocytes % 5.5 % (3.3-12.3); Neutrophils % 68.2 % (41.7-73.7); Platelets 278 thou/uL (152-406); Red Cell Distribution Width 12.8 % (12.1-15.2)
[2023-08-28 10:06] LABS: ALT/SGPT 19 U/L (13-56); AST/SGOT < 10 U/L (15-37); Albumin 3.8 g/dL (3.4-5.0); Alkaline Phosphatase 66 U/L (45-117); Anion Gap 7.7 mEq/L (5.0-15.0); BUN Blood Urea Nitrogen 12 mg/dL (7-18); Bicarbonate 24 mEq/L (21-32); Bilirubin Total 0.5 mg/dL (0.2-1.0); Globulin 3.8 g/dL (2.3-3.5); Glomerular Filtration Rate 71 ml/min (=/>90); Glucose Level 96 mg/dL (74-106); Lipase 20 U/L (13-75); Potassium 3.7 mEq/L (3.5-5.1); Protein, Total 7.6 g/dL (6.4-8.2); Sodium Level 137 mEq/L (136-145)
[2023-08-28 10:11] LABS: Specific Gravity 1.005 (1.005-1.030)
[2023-08-28 10:12] LABS: Specific Gravity 1.005 (1.005-1.030); Sqamous Epithelial <5 /HPF (None Seen); Urine Bacteria None Seen /HPF (<20); Urine Bilirubin NEGATIVE (Negative); Urine Blood Negative (Negative); Urine Clarity Turbid (Clear); Urine Color Colorless (Yellow); Urine Culture Reflex Order NOT NEEDED; Urine Glucose NEGATIVE (Negative); Urine Ketones NEGATIVE (Negative); Urine Microscopic Reflex YN ORDER UMIC; Urine Mucus Slight /HPF (None Seen); Urine Nitrite NEGATIVE (Negative); Urine Protein NEGATIVE (Negative); Urine RBC None Seen /HPF (None Seen); Urine Urobilinogen Normal (Normal); Urine WBC None Seen /HPF (<5); Urine pH 6.5 (5.0-7.0)
--- NOTE | 2023-08-28 10:59 | RAD REPORT ---
EXAM DESCRIPTION: CT - Abdomen Pelvis Wo Contrast - 08/28/2023 10:23 am CLINICAL HISTORY: Abd pain;Nausea / vomiting COMPARISON: Abdomen Pelvis Wo Contrast dated 11/22/2022; Abdomen Pelvis Wo Contrast dated 06/11/19 22; Abdomen Pelvis W Contrast dated 02/19/2020; Abdomen Pelvis W Contrast dated 10/30/2015 TECHNIQUE: Thin cut axial CT imaging of the abdomen and pelvis was performed without IV contrast. Mu ltiplanar reformats were generated and reviewed. All CT scans are performed using dose optimization technique as appropriate and may include automated exposure control or mA/KV adjustment according to patient size. FINDINGS: No suspicious findings in the lung bases. The liver, spleen, adrenal glands, and pancreas show no suspicious findings. Gallbladder and biliary tree are also without suspicious finding. Symmetric renal contour, without suspicious parenchymal findings within limits of noncontrast techniq ue. No evidence of radiopaque calculi or hydroureteronephrosis. No dilated bowel loops or bowel wall thickening. IUD in place. New or progressive fat stranding and l inear soft tissue thickening extending from the region of the lower uterine segment posteriorly towar ds the anterior rectal wall. No free air, free fluid or localized collections. No hernia, mass or bul ky lymphadenopathy. The urinary bladder is without significant finding. No suspicious bony findings. IMPRESSION: New or progressive fat stranding and linear soft tissue thickening from the anterior rec deniz wall to the lower uterine segment, may relate to mild proctocolitis. No appreciable fluid collect ions. No other acute intra-abdominal process.
--- NOTE | 2023-08-28 11:37 | ER ---
Nurse's Notes [facility] Name: Ben Rosa Age: 28 yrs Sex: Female : 1995 Arrival Date: 08/28/2023 Time: 09:13 Bed 8 Private MD: Diagnosis: Proctitis, unspecified;Nausea with vomiting, unspecified Presentation: 08/27 09:20 Chief complaint: Patient states: she has been having nausea, vomiting and abdominal ap3 pain since Sunday evening. patient also complains of diarrhea during this time as well. Patient currently reports her pain as a 4/10 on the pain scale at this time. Coronavirus screen: At this time, the client does not indicate any symptoms associated with coronavirus-19. Ebola Screen: No symptoms or risks identified at this time. Initial Sepsis Screen: Does the patient meet any 2 criteria? No. Patient's initial sepsis screen is negative. Does the patient have a suspected source of infection? No. Patient's initial sepsis screen is negative. Risk Assessment: Do you want to hurt yourself or someone else? Patient reports no desire to harm self or others. Onset of symptoms was August 26, 2023. 09:20 Method Of Arrival: Ambulatory ap3 09:20 Acuity: JOSE 3 ap3 Triage Assessment: 09:22 General: Appears ill, Behavior is calm, cooperative, appropriate for age. Pain: ap3 Complains of pain in abdomen Pain currently is 4 out of 10 on a pain scale. Pain began suddenly, 2-3 days ago. Neuro: Level of Consciousness is awake, alert, obeys commands, Oriented to person, place, time, situation. Cardiovascular: Patient's skin is warm and dry. Respiratory: Airway is patent Respiratory effort is even, unlabored, Respiratory pattern is regular, symmetrical. GI: Reports lower abdominal pain, upper abdominal pain, diarrhea, nausea, vomiting. Historical: - Allergies: 09:22 Bactrim; ap3 09:22 Iodine (rash); ap3 09:22 PENICILLINS; ap3 - PMHx: 09:22 facial trauma; perianal fistula; ap3 - PSHx: 09:22 Adenoid excision; perianal fistula repair x 8; Tonsillectomy; ap3 - Immunization history:: Client reports receiving the 2nd dose of the Covid vaccine. - Infectious Disease History:: Denies. - Family history:: not pertinent. - Hospitalizations: : No recent hospitalization is reported. - Social history:: Smoking status: Patient denies any tobacco usage or history of. Screenin:23 [place] ED Fall Risk Assessment (Adult) History of falling in the last 3 months, ap3 including since admission No falls in past 3 months (0 pts) Confusion or Disorientation No (0 pts) Intoxicated or Sedated No (0 pts) Impaired Gait No (0 pts) Mobility Assist Device Used No (0 pt) Altered Elimination No (0 pt) Score/Fall Risk Level 0 - 2 = Low Risk Oriented to surroundings, Maintained a safe environment, Educated pt \T\ family on fall prevention, incl call for assistance when getting out of bed, Assessed \T\ reinforced patient's understanding of fall precautions, Provided non-skid footwear, Hourly rounding (assess needs \T\ fall precautionary measures) done, Used ambulatory aids as needed (educated on \T\ assisted with), Used gait belt as appropriate. Abuse screen: Denies threats or abuse. Nutritional screening: No deficits noted. Tuberculosis screening: No symptoms or risk factors identified. Assessment: 09:45 General: Appears uncomfortable, Behavior is calm, cooperative, appropriate for age. ko1 Pain: Complains of pain in abdomen. Neuro: No deficits noted. Cardiovascular: No deficits noted. Respiratory: No deficits noted. GI: Bowel sounds present X 4 quads. Abd is soft and non tender X 4 quads. Reports lower abdominal pain, diarrhea, nausea, vomiting. : No deficits noted. EENT: No deficits noted. Derm: No deficits noted. Musculoskeletal: No deficits noted. 10:00 Reassessment: patient requests to hold off on nausea medicine for now, will call when ko1 she needs it. 11:50 Reassessment: Patient appears in no apparent distress at this time. Patient and/or nj1 family updated on plan of care and expected duration. Pain level reassessed. Patient is alert, oriented x 3, equal unlabored respirations, skin warm/dry/pink. IVF infusing, do not discharge until infused per Dr's instructions. 12:14 Reassessment: Patient appears in no apparent distress at this time. Patient is alert, nj1 oriented x 3, equal unlabored respirations, skin warm/dry/pink. Patient states feeling better. Patient states symptoms have improved. Vital Signs: 09:20 Pulse 87; Resp 19; Temp 98.1; Pulse Ox 100% ; Weight 96.62 kg; Height 5 ft. 4 in. ; ap3 Pain 4/10; 09:23 BP 134 / 85; ap3 09:45 BP 110 / 75; Pulse 59; Resp 16; Pulse Ox 99% ; ko1 11:07 BP 136 / 81; Pulse 91; Resp 16; Pulse Ox 97% ; ko1 12:14 BP 133 / 78; Pulse 73; Resp 16; Pulse Ox 98% ; Pain 3/10; nj1 09:20 Body Mass Index 36.56 (96.62 kg, 162.56 cm) ap3 09:20 Pain Scale: Adult ap3 12:14 Pain Scale: Adult nj1 ED Course: 09:16 Patient arrived in ED. mr 09:18 Ephraim Moody MD is Attending Physician. rn 09:22 Triage completed. ap3 09:23 Arm band placed on right wrist. ap3 09:37 Larissa Vogt, RN is Primary Nurse. ko1 09:38 Initial lab(s) drawn, by me, sent to lab. Inserted saline lock: 22 gauge in right ap3 antecubital area, using aseptic technique. Blood collected. 09:39 Patient has correct armband on for positive identification. Bed in low position. Call ap3 light in reach. Side rails up X 1. Provided Education on: call light education, proper urine collection education. Pulse ox on. NIBP on. 09:45 Assisted to bathroom. ko1 10:24 CT Abd/Pelvis - Without Contrast In Process Unspecified. EDMS 12:14 No provider procedures requiring assistance completed. IV discontinued, intact, nj1 bleeding controlled, Pressure dressing applied. Administered Medications: 09:48 Not Given (Patient Refused): ondansetron 4 mg IVP once; over 2 minutes rn 09:59 Drug: NS 0.9% IV 1000 ml IV at 1 bolus Per protocol; 1000 mL bolus Route: IV; Rate: 1 ap3 bolus; Site: right antecubital; 12:13 Follow up: IV Status: Order to discontinue infusion; IV Intake: 600ml ; Ok by physician nj1 to discharge patient 12:13 Not Given (Patient Refused): [id number] mg IVP once nj1 Medication: 09:45 VIS not applicable for this client. ko1 Intake: 12:13 IV: 600ml; Total: 600ml. nj1 Outcome: 11:37 Discharge ordered by . rn 12:14 Discharged to home ambulatory, nj1 12:14 Condition: stable 12:14 Discharge instructions given to patient, Instructed on discharge instructions, follow up and referral plans. medication usage, Demonstrated understanding of instructions, follow-up care, medications, Prescriptions given X 3, 12:15 Patient left the ED. nj1 Signatures: Dispatcher [employer] EDOR Ana Luisa Salcedo, Yoni Reg mr Ephraim Moody MD MD rn Prokisch, Amanda RN RN ap3 Larissa Vogt RN RN ko1 Marilyn Berger RN RN nj1 Corrections: (The following items were deleted from the chart) 09:25 09:22 PMHx: Crohn's; ap3 ap3
--- NOTE | 2023-08-28 11:37 | EDPHYS ---
Physician Documentation [facility] Name: Ben Rosa Age: 28 yrs Sex: Female : 1995 Arrival Date: 08/28/2023 Time: 09:13 Bed 8 Private MD: ED Physician Ephraim Moody HPI: 08/27 09:29 This 28 yrs old Female presents to ER via Ambulatory with complaints of Abdominal Pain, rn Vomiting/Diarrhea. 09:29 The patient presents to the emergency department with nausea, vomiting, diarrhea, rn abdominal pain. Onset: The symptoms/episode began/occurred 3 day(s) ago. Possible causes: unknown. The symptoms are aggravated by nothing. The symptoms are alleviated by nothing. Associated signs and symptoms: Pertinent positives: abdominal pain, diarrhea, nausea, vomiting, Pertinent negatives: fever, GI bleeding, nausea, vaginal discharge. Severity of symptoms: At their worst the symptoms were moderate in the emergency department the symptoms are unchanged. The patient has experienced similar episodes in the past. Patient reports abdominal pain with vomiting and diarrhea for 3 days. No one else around her is sick and nobody that ate with her got sick either. Patient reports has had this problem before, at one point they thought was Crohn's disease. Has had fistulas before. States most recently told did not have Crohn's.. Historical: - Allergies: 09:22 Bactrim; ap3 09:22 Iodine (rash); ap3 09:22 PENICILLINS; ap3 - PMHx: 09:22 facial trauma; perianal fistula; ap3 - PSHx: 09:22 Adenoid excision; perianal fistula repair x 8; Tonsillectomy; ap3 - Immunization history:: Client reports receiving the 2nd dose of the Covid vaccine. - Infectious Disease History:: Denies. - Family history:: not pertinent. - Hospitalizations: : No recent hospitalization is reported. - Social history:: Smoking status: Patient denies any tobacco usage or history of. ROS: 09:29 Constitutional: Negative for fever, chills, and weight loss, Neck: Negative for injury, rn pain, and swelling, Cardiovascular: Negative for chest pain, palpitations, and edema, Respiratory: Negative for shortness of breath, cough, wheezing, and pleuritic chest pain, Abdomen/GI: + abd pain with vomiting and diarrhea Back: Negative for injury and pain, : Negative for injury, bleeding, discharge, and swelling, MS/Extremity: Negative for injury and deformity, Skin: Negative for injury, rash, and discoloration, Neuro: + generalized weakness Exam: 09:29 Constitutional: This is a well developed, well nourished patient who is awake, alert, rn seems anxious Cardiovascular: Regular rate and rhythm. No pulse deficits. Respiratory: No increased work of breathing, no retractions or nasal flaring. Abdomen/GI: soft, mild left lower quadrant tenderness, no rebound or masses Neuro: Awake and alert, GCS 15, ambulatory to room without assistance. Vital Signs: 09:20 Pulse 87; Resp 19; Temp 98.1; Pulse Ox 100% ; Weight 96.62 kg; Height 5 ft. 4 in. ; ap3 Pain 4/10; 09:23 BP 134 / 85; ap3 09:45 BP 110 / 75; Pulse 59; Resp 16; Pulse Ox 99% ; ko1 11:07 BP 136 / 81; Pulse 91; Resp 16; Pulse Ox 97% ; ko1 12:14 BP 133 / 78; Pulse 73; Resp 16; Pulse Ox 98% ; Pain 3/10; nj1 09:20 Body Mass Index 36.56 (96.62 kg, 162.56 cm) ap3 09:20 Pain Scale: Adult ap3 12:14 Pain Scale: Adult nj1 MDM: 09:18 Patient medically screened. rn 11:34 Differential diagnosis: Nonspecific abd pain, gastritis, diverticulitis, viral rn gastroenteritis, gastroenteritis, colitis, proctitis, inflammatory bowel disease, viral illness. Data reviewed: vital signs, nurses notes, lab test result(s), radiologic studies, CT scan, and as a result, I will discharge patient. Counseling: I had a detailed discussion with the patient and/or guardian regarding the historical points, exam findings, and any diagnostic results supporting the discharge/admit diagnosis, lab results, radiology results, the need for outpatient follow up, to return to the emergency department if symptoms worsen or persist or if there are any questions or concerns that arise at home. Special discussion: Based on the patient's Hx, exam, and Dx evaluation, there is no indication for emergent surgery or inpatient Tx. It is understood by the patient/guardian that if the Sx's persist or worsen they need to return immediately for re-evaluation. I discussed with the patient/guardian in detail that at this point there is no indication for admission to the hospital. It is understood, however, that if the symptoms persist or worsen the patient needs to return immediately for re-evaluation. Based on the history and exam findings, there is no indication for further emergent testing or inpatient evaluation. I discussed with the patient/guardian the need to see the pilot fuel engineer for further evaluation of the symptoms. ED course: CT shows possible proctocolitis, not likely the cause of her symptoms for the last 3 days but could indicate ongoing inflammatory disorder that has not been diagnosed. Especially history of fistulas. Recommend GI follow-up for second opinion. Will discharge home with antibiotics and as needed Phenergan with return precautions.. 08/27 09:28 Order name: CBC with Diff; Complete Time: 10:15 rn 08/27 09:28 Order name: CMP; Complete Time: 10:15 08/27 09:28 Order name: Lipase; Complete Time: 10:15 08/27 09:28 Order name: Test, Urine; Complete Time: 10:15 08/27 09:28 Order name: Urinalysis w/ reflexes; Complete Time: 10:15 rn 08/27 09:28 Order name: CT Abd/Pelvis - Without Contrast; Complete Time: 11:04 08/27 09:28 Order name: IV Saline Lock; Complete Time: 09:39 rn 08/27 09:28 Order name: Labs collected and sent; Complete Time: 09:39 rn Administered Medications: 09:48 Not Given (Patient Refused): ondansetron 4 mg IVP once; over 2 minutes rn 09:59 Drug: NS 0.9% IV 1000 ml IV at 1 bolus Per protocol; 1000 mL bolus Route: IV; Rate: 1 ap3 bolus; Site: right antecubital; 12:13 Follow up: IV Status: Order to discontinue infusion; IV Intake: 600ml ; Ok by physician nj1 to discharge patient 12:13 Not Given (Patient Refused): [id number] mg IVP once nj1 Disposition Summary: 08/28/23 11:37 Discharge Ordered Notes: Location: Home rn Problem: new rn Symptoms: have improved rn Condition: Stable rn Diagnosis - Proctitis, unspecified rn - Nausea with vomiting, unspecified rn Followup: rn - With: Private Physician - When: As needed - Reason: Recheck today's complaints, Re-evaluation by your physician Discharge Instructions: - Nausea and Vomiting, Adult rn - Proctitis rn - Discharge Summary Sheet ko1 Forms: - Medication Reconciliation Form rn - Antibiotic rn paralegal - Prescription Opioid Use rn - Patient Portal Instructions rn - Leadership Thank You Letter rn - Work release form ko1 Prescriptions: - Flagyl 500 mg Oral Tablet - take 1 tablet ORAL route every 8 hours for 10 days; 30 tablet; Refills: 0, rn Product Selection Permitted - Cipro 500 mg Oral tablet - take 1 tablet ORAL route every 12 hours for 10 days; 20 tablet; Refills: 0, rn Product Selection Permitted - promethazine 25 mg Oral Tablet - take 1 tablet ORAL route every 6 hours As needed; 20 tablet; Refills: 0, rn Product Selection Permitted Signatures: Dispatcher [employer] EDMS Ephraim Moody MD MD rn Prokisch, Amanda, RN RN ap3 Larissa Vogt RN RN ko1 Marilyn Berger RN nj1 Corrections: (The following items were deleted from the chart) 09: 09:22 PMHx: Crohn's; ap3 ap3 09: 09:29 CBC+H.LAB.BRZ ordered. EDMS EDMS 09: 09:29 COMPREHENSIVE METABOLIC PANEL+C.LAB.BRZ ordered. EDMS EDMS 09: 09:29 LIPASE+C.LAB.BRZ ordered. EDMS EDMS 09:29 09:29 Test, Urine+UC.LAB.BRZ ordered. EDMS EDMS 09: 09:29 Urinalysis+U.LAB.BRZ ordered. EDMS EDMS
[2023-08-28 13:05] VITALS: TEMP 98.1; O2SAT 98
[2023-08-28 13:06] VITALS: BP 133/78
== END 2023-08-28 12:15 | disposition home or self-care (01) ==
LOC: ER 09:13
DX: K62.89 Other specified diseases of anus and rectum (principal); R11.2 Nausea with vomiting, unspecified
CPT/HCPCS: 36415; 74176; 80053; 81001; 81025; 83690; 85025; 96360; 96361; 99284; J2405; J7030

== ENCOUNTER 2023-12-18 08:00 | Emergency (ER) | payer BC, SELFPAY ==
[2023-12-18] MEDS ORDERED: METRONIDAZOLE 500mg IVPB 500 MG/100 ML BAG IV ONE (08:50)
[2023-12-18] MEDS ORDERED: CIPROFLOXACIN 400mg IV 400 MG/200 ML BAG IV ONE (08:50)
[2023-12-18] MEDS ORDERED: MORPHINE 4 MG/ML SYR ONE (08:50)
[2023-12-18] MEDS ORDERED: FAMOTIDINE 20 MG/2 ML VIAL IV ONE (08:50)
[2023-12-18] MEDS ORDERED: ONDANSETRON 4 MG/2 ML VIAL ONE (08:50)
[2023-12-18] MEDS ORDERED: NA CHLORIDE 0.9% 1,000 ML ONE (08:51)
[2023-12-18 09:16] LABS: Specific Gravity 1.022 (1.005-1.030)
[2023-12-18 09:18] LABS: Specific Gravity 1.022 (1.005-1.030); Urine Bacteria None Seen /HPF (<20); Urine Bilirubin NEGATIVE (Negative); Urine Blood Trace (Negative); Urine Clarity Extremely Turbid (Clear); Urine Color Light-Yellow (Yellow); Urine Culture Reflex Order NOT NEEDED; Urine Glucose NEGATIVE (Negative); Urine Ketones NEGATIVE (Negative); Urine Microscopic Reflex YN ORDER UMIC; Urine Mucus Slight /HPF (None Seen); Urine Nitrite NEGATIVE (Negative); Urine Protein NEGATIVE (Negative); Urine RBC <5 /HPF (None Seen); Urine Urobilinogen Normal (Normal); Urine WBC <5 /HPF (<5); Urine pH 6.5 (5.0-7.0)
[2023-12-18 09:37] LABS: Absolute Basophils 0.1 K/uL (0-0.5); Absolute Eosinophils 0.1 K/uL (0-0.5); Absolute Lymphocytes (CBC) 2.5 K/uL (0.7-4.9); Absolute Monocytes 0.5 K/uL (0.1-1.3); Basophils % 0.6 % (0-1.3); Hemoglobin 13.3 g/dL (12.0-15.0); Lymphocytes % 27.3 % (15.3-44.8); MCH 30.8 pg (27.0-35.0); MCHC 34.1 g/dL (32.0-36.0); MCV 90.4 fL (80-100); MPV 9.5 fL (7.6-11.3); Monocytes % 5.5 % (3.3-12.3); Neutrophils % 65.6 % (41.7-73.7); Platelets 287 thou/uL (152-406); RBC Red Blood Cell Count 4.32 M/uL (3.86-4.86)
--- NOTE | 2023-12-18 09:39 | RAD REPORT ---
CLINICAL HISTORY: [facility] MAIN Y ABD PAIN Bed Name: 14 COMPARISON: None. FINDINGS: Gallbladder: Normal. Bile ducts: No intrahepatic or extrahepatic biliary dilatation. Common bile duct measures 3 mm. Liver: Size: Normal. Echogenicity: Normal. Contour: Smooth. IMPRESSION: Unremarkable exam.
[2023-12-18 09:52] LABS: ALT/SGPT 20 U/L (13-56); Albumin 3.7 g/dL (3.4-5.0); Alkaline Phosphatase 63 U/L (45-117); BUN Blood Urea Nitrogen 10 mg/dL (7-18); Bicarbonate 26 mEq/L (21-32); Bilirubin Total 0.4 mg/dL (0.2-1.0); Globulin 3.8 g/dL (2.3-3.5); Glomerular Filtration Rate 81 ml/min (=/>90); Glucose Level 98 mg/dL (74-106); Lipase 29 U/L (13-75); Protein, Total 7.5 g/dL (6.4-8.2); Sodium Level 140 mEq/L (136-145)
[2023-12-18 10:00] LABS: AST/SGOT < 10 U/L (15-37)
--- NOTE | 2023-12-18 10:42 | RAD REPORT ---
EXAMINATION: CT ABDOMEN AND PELVIS WITHOUT CONTRAST CLINICAL INDICATION: Female, 28 years old. [facility] MAIN ABD PAIN ORAL ONLY Bed Name: 14 TECHNIQUE: CT abdomen and pelvis was performed, without IV contrast, as per department protocol. Axia l, sagittal and coronal reconstructions were obtained. One or more of the following dose reduction techniques were used: Automated exposure control, adjustment of the mA and kV according to the patien t size, and iterative reconstruction. Unless otherwise specified, incidental findings do not require dedicated imaging follow-up. COMPARISON: No prior exam. FINDINGS: The lack of intravenous contrast limits the sensitivity of this exam for evaluation of solid visceral organs, vascular structures, and retroperitoneum. LOWER CHEST: The visualized lung bases are clear. LIVER: Normal in size and contour. No focal lesion. SPLEEN: Normal size. No focal lesion. PANCREAS: No mass, ductal dilation, or damian-pancreatic fluid. ADRENALS: Normal; no mass. KIDNEYS AND URETERS: Normal size and contour. No hydronephrosis. URINARY BLADDER: Normal contour. GASTROINTESTINAL TRACT: No evidence of bowel obstruction, significant free fluid, free air or abscess . APPENDIX: Normal appendix. LYMPH NODES: No lymphadenopathy. MUSCULOSKELETAL: No acute or suspicious osseous abnormality. ADDITIONAL FINDINGS: IUD present in the uterus. IMPRESSION: No acute or concerning abnormalities in the abdomen or pelvis, with evaluation limited by lack of IV contrast.
--- NOTE | 2023-12-18 11:16 | ER ---
Nurse's Notes [facility] Name: Ben Rosa Age: 28 yrs Sex: Female : 1995 Arrival Date: 12/18/2023 Time: 08:00 Bed 14 Private MD: Diagnosis: Abdominal pain, unspecified;Vomiting Presentation: 12/17 08:12 Chief complaint: Patient states: Lower pelvic pressure for 4 days. N/V this morning. ll1 +fatigue and sweats. Coronavirus screen: Client denies travel out of the [place] in the last 14 days. diarrhea, fatigue, nausea, vomiting. Ebola Screen: Patient denies travel to an Ebola-affected area in the 21 days before illness onset. Initial Sepsis Screen: Does the patient meet any 2 criteria? No. Patient's initial sepsis screen is negative. Does the patient have a suspected source of infection? No. Patient's initial sepsis screen is negative. Risk Assessment: Do you want to hurt yourself or someone else? Patient reports no desire to harm self or others. Onset of symptoms was December 15, 2023. 08:12 Method Of Arrival: Ambulatory ll1 08:12 Acuity: JOSE 3 ll1 Triage Assessment: 08:14 General: Appears distressed, uncomfortable, Behavior is calm, cooperative, appropriate ll1 for age. Pain: Complains of pain in abdomen Pain currently is 4 out of 10 on a pain scale. Quality of pain is described as aching, dull, pressure, Pain began 4 days ago. Neuro: No deficits noted. Cardiovascular: No deficits noted. GI: Reports lower abdominal pain, nausea, vomiting. 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 - Social history:: Smoking status: Patient denies any tobacco usage or history of. - Family history:: not pertinent. Screenin:25 [facility] ED Fall Risk Assessment (Adult) History of falling in the last 3 months, kc6 including since admission No falls in past 3 months (0 pts) Confusion or Disorientation No (0 pts) Intoxicated or Sedated No (0 pts) Impaired Gait No (0 pts) Mobility Assist Device Used No (0 pt) Altered Elimination No (0 pt) Score/Fall Risk Level 0 - 2 = Low Risk. Abuse screen: Denies threats or abuse. Denies injuries from another. Nutritional screening: No deficits noted. Tuberculosis screening: No symptoms or risk factors identified. Assessment: 08:20 General: Appears in no apparent distress. uncomfortable, well groomed, well developed, kc6 Behavior is calm, cooperative, appropriate for age, Reports chills for 1-2 days, feeling ill for > 3 days, fatigue for >3 days. Pain: Complains of pain in abdomen and pelvis. Neuro: Level of Consciousness is awake, alert, obeys commands, Oriented to person, place, time, situation, Appropriate for age. Cardiovascular: Capillary refill < 3 seconds. Respiratory: Airway is patent Trachea midline Respiratory effort is even, unlabored, Respiratory pattern is regular, symmetrical. GI: Abdomen is flat, non-distended, Bowel sounds present X 4 quads. Abd is soft X 4 quads Reports lower abdominal pain, diarrhea, nausea, vomiting. : No signs and/or symptoms were reported regarding the genitourinary system. Urine is clear. EENT: No signs and/or symptoms were reported regarding the EENT system. Derm: No signs and/or symptoms reported regarding the dermatologic system. Skin is intact, is healthy with good turgor, Skin is pink, warm \T\ dry. Musculoskeletal: No signs and/or symptoms reported regarding the musculoskeletal system. Circulation, motion, and sensation intact. Capillary refill < 3 seconds, Range of motion: intact in all extremities. 09:36 Reassessment: pt completed PO contrast at this time. CT made aware. kc6 09:57 Reassessment: Patient appears in no apparent distress at this time. No changes from kc6 previously documented assessment. Patient and/or family updated on plan of care and expected duration. Pain level reassessed. Patient is alert, oriented x 3, equal unlabored respirations, skin warm/dry/pink. Patient states feeling better. Patient states symptoms have improved. Vital Signs: 08:12 BP 99 / 43; Pulse 65; Resp 17; Temp 97.9; Pulse Ox 96% on R/A; Weight 90.72 kg; Height ll1 5 ft. 5 in. ; Pain 4/10; 08:25 BP 110 / 69; kc6 09:57 BP 116 / 69; Pulse 55; Resp 16 S; Pulse Ox 97% ; Pain 0/10; kc6 08:12 Body Mass Index 33.28 (90.72 kg, 165.1 cm) ll1 08:12 Pain Scale: Adult ll1 09:57 Pain Scale: Adult kc6 ED Course: 08:03 Patient arrived in ED. ra3 08:05 Arm band placed on Patient placed in an exam room, on a stretcher. ll1 08:08 Arcenio Chua MD is Attending Physician. caro 08:11 Cecille Duenas RN is Primary Nurse. kc6 08:14 Triage completed. ll1 08:25 Patient has correct armband on for positive identification. Placed in gown. Bed in low kc6 position. Call light in reach. Side rails up X 1. Pulse ox on. NIBP on. Door closed. Noise minimized. Lights dimmed. Pillow given. 09:08 Test, Urine Sent. kc6 09:08 Urinalysis w/ reflexes Sent. kc6 09:11 Abdomen Limited US In Process Unspecified. EDMS 09:36 Inserted saline lock: 20 gauge in right antecubital area, using aseptic technique. kc6 Blood collected. Flushed with 10 mL NS. Patient maintains SpO2 saturation greater than 95% on room air. 10:32 Abdomen In Process Unspecified. EDMS 11:15 Estrella Lala MD is Referral Physician. caro 11:41 No provider procedures requiring assistance completed. IV discontinued, intact, kc6 bleeding controlled, No redness/swelling at site. Pressure dressing applied. Administered Medications: 09:35 Drug: NS 0.9% IV 1000 ml IV at 1 bolus Per protocol; 1000 mL bolus Route: IV; Rate: 1 kc6 bolus; Site: right antecubital; 09:36 Drug: Famotidine IVP 20 mg IVP once; dilute with 10 mL 0.9% NaCl; give over 2 minutes kc6 Route: IVP; Site: right antecubital; 09:55 Follow up: Response: No adverse reaction kc6 09:36 Drug: Ondansetron IVP 4 mg IVP once; over 2 minutes Route: IVP; Site: right antecubital;kc6 09:55 Follow up: Response: No adverse reaction; Nausea is decreased; Vomiting decreased kc6 09:36 Drug: morphine IVP or IV 4 mg IVP once over 4 mins Route: IVP; Infused Over: 4 mins; kc6 Site: right antecubital; 09:55 Follow up: Response: No adverse reaction; Pain is decreased; RASS: Alert and Calm (0) kc6 09:36 Drug: metroNIDAZOLE IVPB 500 mg 100 ml IVPB at 200 ml/hr once over 30 mins Volume: 100 kc6 ml; Route: IVPB; Rate: 200 ml/hr; Infused Over: 30 mins; Site: right antecubital; 09:55 Drug: Ciprofloxacin IVPB 400 mg 200 ml IVPB once over 60 mins Volume: 200 ml; Route: kc6 IVPB; Infused Over: 60 mins; Site: right antecubital; Medication: 11:42 VIS not applicable for this client. kc6 Outcome: 11:15 Discharge ordered by MD. elizondo 11:42 Discharged to home ambulatory, with significant other, kc6 11:42 Condition: good 11:42 Discharge instructions given to patient, significant other, Instructed on discharge instructions, follow up and referral plans. medication usage, Demonstrated understanding of instructions, follow-up care, medications, Prescriptions given X 3, 11:42 Patient left the ED. kc6 Signatures: Dispatcher [employer] Arcenio Jurado MD MD cha Lewis, Lynsay, RN RN ll1 Cecille Duenas RN RN kc6 Nataliia Cool ra3
--- NOTE | 2023-12-18 11:16 | EDPHYS ---
Physician Documentation [facility] Name: Ben Rosa Age: 28 yrs Sex: Female : 1995 Arrival Date: 12/18/2023 Time: 08:00 Bed 14 Private MD: KAT Physician Arcenio Chua HPI: 12/17 11:10 This 28 yrs old Female presents to ER via Ambulatory with complaints of caro Abdominal Pain - sweating. 11:10 The patient presents with abdominal pain. Onset: The symptoms/episode began/occurred 4 caro day(s) ago. The symptoms do not radiate. Associated signs and symptoms: none. Pertinent positives: nausea and vomiting, diarrhea. Modifying factors: The symptoms are alleviated by nothing, the symptoms are aggravated by nothing. Severity of pain: At its worst the pain was moderate in the emergency department the pain is unchanged. The patient has experienced similar episodes in the past. no f,c, n, v. 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 - Social history:: Smoking status: Patient denies any tobacco usage or history of. - Family history:: not pertinent. ROS: 11:10 Constitutional: Negative for fever, chills, and weight loss, Eyes: Negative for injury, caro pain, redness, and discharge, ENT: Negative for injury, pain, and discharge, Neck: Negative for injury, pain, and swelling, Cardiovascular: Negative for chest pain, palpitations, and edema, Respiratory: Negative for shortness of breath, cough, wheezing, and pleuritic chest pain, Back: Negative for injury and pain, : Negative for injury, bleeding, discharge, and swelling, MS/Extremity: Negative for injury and deformity, Skin: Negative for injury, rash, and discoloration, Neuro: Negative for headache, weakness, numbness, tingling, and seizure, Psych: Negative for depression, anxiety, suicide ideation, homicidal ideation, and hallucinations, Allergy/Immunology: Negative for hives, rash, and allergies, Endocrine: Negative for neck swelling, polydipsia, polyuria, polyphagia, and marked weight changes, Hematologic/Lymphatic: Negative for swollen nodes, abnormal bleeding, and unusual bruising, 11:10 Abdomen/GI: Positive for abdominal pain, nausea, vomiting, diarrhea, abdominal cramps, of the right lower quadrant and left lower quadrant, Exam: 11:10 Constitutional: This is a well developed, well nourished patient who is awake, alert, caro and in no acute distress. Head/Face: Normocephalic, atraumatic. Eyes: Pupils equal round and reactive to light, extra-ocular motions intact. Lids and lashes normal. Conjunctiva and sclera are non-icteric and not injected. Cornea within normal limits. Periorbital areas with no swelling, redness, or edema. ENT: Nares patent. No nasal discharge, no septal abnormalities noted. Tympanic membranes are normal and external auditory canals are clear. Oropharynx with no redness, swelling, or masses, exudates, or evidence of obstruction, uvula midline. Mucous membranes moist. Neck: Trachea midline, no thyromegaly or masses palpated, and no cervical lymphadenopathy. Supple, full range of motion without nuchal rigidity, or vertebral point tenderness. No Meningismus. Chest/axilla: Normal chest wall appearance and motion. Nontender with no deformity. No lesions are appreciated. Cardiovascular: Regular rate and rhythm with a normal S1 and S2. No gallops, murmurs, or rubs. Normal PMI, no JVD. No pulse deficits. Respiratory: Lungs have equal breath sounds bilaterally, clear to auscultation and percussion. No rales, rhonchi or wheezes noted. No increased work of breathing, no retractions or nasal flaring. Back: No spinal tenderness. No costovertebral tenderness. Full range of motion. Skin: Warm, dry with normal turgor. Normal color with no rashes, no lesions, and no evidence of cellulitis. MS/ Extremity: Pulses equal, no cyanosis. Neurovascular intact. Full, normal range of motion. Neuro: Awake and alert, GCS 15, oriented to person, place, time, and situation. Cranial nerves II-XII grossly intact. Motor strength 5/5 in all extremities. Sensory grossly intact. Cerebellar exam normal. Normal gait. Psych: Awake, alert, with orientation to person, place and time. Behavior, mood, and affect are within normal limits. 11:10 Abdomen/GI: Inspection: abdomen appears normal, Bowel sounds: normal, Palpation: mild abdominal tenderness, in the right lower quadrant and left lower quadrant, Liver: no appreciated palpable abnormalities, Hernia: not appreciated, Vital Signs: 08:12 BP 99 / 43; Pulse 65; Resp 17; Temp 97.9; Pulse Ox 96% on R/A; Weight 90.72 kg; Height ll1 5 ft. 5 in. ; Pain 4/10; 08:25 BP 110 / 69; kc6 09:57 BP 116 / 69; Pulse 55; Resp 16 S; Pulse Ox 97% ; Pain 0/10; kc6 08:12 Body Mass Index 33.28 (90.72 kg, 165.1 cm) ll1 08:12 Pain Scale: Adult ll1 09:57 Pain Scale: Adult kc6 MDM: 08:09 Patient medically screened. [facility] 11:13 Differential diagnosis: Cholelithiasis, diverticulitis, gastritis, GI Bleed, caro Menorrhagia, Mesenteric ischemia or infarction, non-specific abd pain, pancreatitis, Peritonitis, Pyelonephritis, Ureterolithiasis, urinary tract infection. Data reviewed: vital signs, nurses notes, lab test result(s), radiologic studies, CT scan, ultrasound. Consideration of Admission/Observation Escalation of care including admission/observation considered. I considered the following discharge prescriptions or medication management in the emergency department Medications were administered in the Emergency Department. See MAR. Independent interpretation of the following test(s) in the Emergency Department CT Scan: My interpretation is ct ab/pel . Radiology Department Ultrasound: My interpretation is gb neg. Test considered but Not performed:. Care significantly affected by the following chronic conditions: face trauma, perianal fistula. 12/17 08:39 Order name: CBC with Diff; Complete Time: 11: [facility] 12/17 08:39 Order name: CMP; Complete Time: 11: [facility] 12/17 08:39 Order name: Lipase; Complete Time: 11: [facility] 12/17 08:39 Order name: Test, Urine; Complete Time: 11: [facility] 12/17 08:39 Order name: Urinalysis w/ reflexes; Complete Time: 11: [facility] 12/17 08:39 Order name: Abdomen Limited US; Complete Time: 11: [facility] 12/17 08:48 Order name: Abdomen ; Complete Time: 11:09 EDMS 12/17 08:39 Order name: IV Saline Lock; Complete Time: 09:35 caro 12/17 08:39 Order name: Labs collected and sent; Complete Time: 09:35 caro Administered Medications: 09:35 Drug: NS 0.9% IV 1000 ml IV at 1 bolus Per protocol; 1000 mL bolus Route: IV; Rate: 1 kc6 bolus; Site: right antecubital; 09:36 Drug: Famotidine IVP 20 mg IVP once; dilute with 10 mL 0.9% NaCl; give over 2 minutes kc6 Route: IVP; Site: right antecubital; 09:55 Follow up: Response: No adverse reaction [facility] 09:36 Drug: Ondansetron IVP 4 mg IVP once; over 2 minutes Route: IVP; Site: right antecubital;kc6 09:55 Follow up: Response: No adverse reaction; Nausea is decreased; Vomiting decreased [facility] 09:36 Drug: morphine IVP or IV 4 mg IVP once over 4 mins Route: IVP; Infused Over: 4 mins; kc6 Site: right antecubital; 09:55 Follow up: Response: No adverse reaction; Pain is decreased; RASS: Alert and Calm (0) [facility] 09:36 Drug: metroNIDAZOLE IVPB 500 mg 100 ml IVPB at 200 ml/hr once over 30 mins Volume: 100 kc6 ml; Route: IVPB; Rate: 200 ml/hr; Infused Over: 30 mins; Site: right antecubital; 09:55 Drug: Ciprofloxacin IVPB 400 mg 200 ml IVPB once over 60 mins Volume: 200 ml; Route: kc6 IVPB; Infused Over: 60 mins; Site: right antecubital; Disposition Summary: 12/18/23 11:15 Discharge Ordered Notes: Location: Home caro Problem: new caro Symptoms: have improved caro Condition: Stable caro Diagnosis - Abdominal pain, unspecified caro - Vomiting caro Followup: caro - With: Private Physician - When: 2 - 3 days - Reason: Recheck today's complaints, Continuance of care, Re-evaluation by your physician Followup: caro - With: Estrella Lala MD - When: 2 - 3 days - Reason: Recheck today's complaints, Re-evaluation by your physician Discharge Instructions: - Abdominal Pain, Adult caro - Abdominal Pain, Adult, Rbew-co-Dece caro - Vomiting, Adult caro - Discharge Summary Sheet kc6 Forms: - Medication Reconciliation Form caro - Antibiotic Education caro - Prescription Opioid Use caro - Patient Portal Instructions caro - Leadership Thank You Letter caro - Work release form kc6 Prescriptions: - ondansetron 4 mg Oral Tablet,disintegrating - take 1 tablet ORAL route every 6-8 hours for 5 days; 20 tablet; Refills: 0, [facility] Product Selection Permitted - Pepcid 20 mg Oral tablet - take 1 tablet ORAL route every 12 hours for 21 days; 42 tablet; Refills: 0, [facility] Product Selection Permitted - dicyclomine 20 mg Oral tablet - take 1 tablet ORAL route 4 times per day; 28 tablet; Refills: 0, Product [facility] Selection Permitted Signatures: Dispatcher [employer] EDArcenio Fuller MD MD cha Lewis, Lynsay, RN RN ll1 Cecille Duenas RN RN kc6 Corrections: (The following items were deleted from the chart) 08:47 08:39 Abdomen Pelvis W Con+CT.RAD.BRZ ordered. EDMS EDMS
[2023-12-18 11:51] VITALS: TEMP 97.9
[2023-12-18 12:06] VITALS: BP 116/69; O2SAT 97
== END 2023-12-18 11:42 | disposition home or self-care (01) ==
LOC: ER 08:00
DX: R10.31 Right lower quadrant pain (principal); R11.10 Vomiting, unspecified
CPT/HCPCS: 85025; 81001; 36415; 81025; 83690; 80053; 74176; 76705; 96375; 96374; 99284; J2405; J0744; J7030

== ENCOUNTER 2024-06-23 13:57 | Emergency (ER) | payer BC ==
[2024-06-23] MEDS ORDERED: dexAMETHasone 10 MG/ML VIAL ONE (14:39)
[2024-06-23 14:42] LABS: Influenza A Ag Negative; Influenza B Ag Negative; SARS-CoV-2 Antigen Rapid Res Negative (Negative)
--- NOTE | 2024-06-23 15:24 | RAD REPORT ---
EXAMINATION: TWO VIEW CHEST XR CLINICAL INDICATION: Congestion;Fever TECHNIQUE: 2 views of the chest was performed. COMPARISON: 07/10/2023 FINDINGS: Reticular opacities in the right middle lobe likely developing pneumonia/infection. The lungs are oth erwise clear. The heart is normal in size. No displaced fractures evident.
--- NOTE | 2024-06-23 15:36 | ER ---
Nurse's Notes [id number] Name: Ben Rosa Age: 28 yrs Sex: Female : 1995 Arrival Date: 06/23/2024 Time: 13:57 Bed 11 Private MD: Diagnosis: Pneumonia due to other specified bacteria Presentation: 06/23 14:08 Chief complaint: Patient states: congestion, cough, and chills that began Sunday. aa5 14:08 Coronavirus screen: congestion. Ebola Screen: Patient denies travel to an [facility] Ebola-affected area in the 21 days before illness onset. Initial Sepsis Screen: Does the patient meet any 2 criteria? No. Patient's initial sepsis screen is negative. Does the patient have a suspected source of infection? No. Patient's initial sepsis screen is negative. Risk Assessment: Do you want to hurt yourself or someone else? Patient reports no desire to harm self or others. Onset of symptoms was May 2024. 14:08 Method Of Arrival: Ambulatory aa5 14:08 Acuity: JOSE 4 aa5 Historical: - Allergies: 14:16 Bactrim; aa5 14:16 Iodine (rash); aa5 14:16 PENICILLINS; aa5 - Home Meds: 14:16 None [Active]; aa5 - PMHx: 14:16 facial trauma; perianal fistula; aa5 - PSHx: 14:16 Adenoid excision; perianal fistula repair x 8; Tonsillectomy; aa5 - Immunization history:: Adult Immunizations unknown. - Infectious Disease History:: Denies. - Social history:: Smoking status: Patient denies any tobacco usage or history of. Screenin:02 [facility] ED Fall Risk Assessment (Adult) History of falling in the last 3 months, kc6 including since admission No falls in past 3 months (0 pts) Confusion or Disorientation No (0 pts) Intoxicated or Sedated No (0 pts) Impaired Gait No (0 pts) Mobility Assist Device Used No (0 pt) Altered Elimination No (0 pt) Score/Fall Risk Level 0 - 2 = Low Risk Oriented to surroundings, Maintained a safe environment, Educated pt \T\ family on fall prevention, incl call for assistance when getting out of bed. Abuse screen: Denies threats or abuse. Denies injuries from another. Nutritional screening: No deficits noted. Tuberculosis screening: No symptoms or risk factors identified. Assessment: 15:02 General: Appears in no apparent distress. comfortable, well groomed, well developed, kc6 Behavior is calm, cooperative, appropriate for age, Reports chills for 1-2 days. Pain: Complains of pain in right hip. Neuro: Level of Consciousness is awake, alert, obeys commands, Oriented to person, place, time, situation, Appropriate for age. Cardiovascular: Capillary refill < 3 seconds. Respiratory: Airway is patent Trachea midline Respiratory effort is even, unlabored, Respiratory pattern is regular, symmetrical, Breath sounds are clear bilaterally. EENT: Reports nasal congestion. Vital Signs: 14:08 BP 128 / 79; Pulse 77; Resp 18 S; Temp 98.3(O); Pulse Ox 98% on R/A; Weight 90.72 kg aa5 (R); Height 5 ft. 4 in. (R); 14:08 Body Mass Index 34.33 (90.72 kg, 162.56 cm) aa5 ED Course: 14:00 Patient arrived in ED. mr 14:01 Britany Tong, NANETTE [facility]. iw 14:01 Fidel Salazar MD is Attending Physician. iw 14:08 Arm band placed on Patient placed in an exam room, on a stretcher. aa5 14:14 Cecille Duenas, RN is Primary Nurse. [facility] [place] 14:16 COVID swab sent to lab. Flu and/or RSV swab sent to lab. Strep swab sent to lab. aa5 14:17 Triage completed. aa5 15:02 Patient has correct armband on for positive identification. Bed in low position. Call kc6 light in reach. Side rails up X 1. Pulse ox on. NIBP on. Door closed. Noise minimized. Lights dimmed. Pillow given. Verbal reassurance given. 15:02 No provider procedures requiring assistance completed. Patient maintains SpO2 kc6 saturation greater than 95% on room air. 15:14 Chest Pa And Lat (2 Views) XRAY In Process Unspecified. EDMS 15:42 Patient did not have IV access during this emergency room visit. iw Administered Medications: 14:47 Drug: Dexamethasone IM 10 mg IM once Route: IM; Site: right gluteus; kc6 Medication: 15:43 VIS not applicable for this client. iw Outcome: 15:35 Discharge ordered by . dr5 15:42 Discharged to home ambulatory, iw 15:42 Condition: good 15:42 Discharge instructions given to patient, Instructed on discharge instructions, follow up and referral plans. medication usage, Demonstrated understanding of instructions, follow-up care, medications, Prescriptions given X 1, 15:43 Patient left the ED. iw Signatures: Dispatcher [employer] EDMS Matias Ana Luisa, Reg Reg mr Aleisha Rosa RN RN iw Nurys Blanco RN RN sunday5 Cecille Duenas RN RN kc6 Tong Garg, GLASS WASHER-C GLASS WASHER-Cdr5
[2024-06-23 15:48] VITALS: BP 128/79; TEMP 98.3; O2SAT 98
--- NOTE | 2024-06-24 15:43 | EDPHYS ---
Physician Documentation [facility] Name: Ben Rosa Age: 28 yrs Sex: Female : 1995 Arrival Date: 06/23/2024 Time: 13:57 Bed 11 Private MD: ED Physician Fidel Salazar HPI: 06/23 16:41 This 28 yrs old Black Female presents to ER via Ambulatory with complaints of Fever, dr5 Congestion. 16:42 Patient is a 28-year-old female with history of perianal fistula coming in with fever dr5 and congestion since last Sunday and subjective fevers at home.. Historical: - Allergies: 14:16 Bactrim; aa5 14:16 Iodine (rash); aa5 14:16 PENICILLINS; aa5 - Home Meds: 14:16 None [Active]; aa5 - PMHx: 14:16 facial trauma; perianal fistula; aa5 - PSHx: 14:16 Adenoid excision; perianal fistula repair x 8; Tonsillectomy; aa5 - Immunization history:: Adult Immunizations unknown. - Infectious Disease History:: Denies. - Social history:: Smoking status: Patient denies any tobacco usage or history of. ROS: 16:44 Constitutional: as per hpi dr5 Exam: 16:44 Constitutional: This is a well developed, well nourished patient who is awake, alert, dr5 and in no acute distress. Head/Face: Normocephalic, atraumatic. ENT: Nares patent. No nasal discharge, no septal abnormalities noted. Tympanic membranes are normal and external auditory canals are clear. Oropharynx with no redness, swelling, or masses, exudates, or evidence of obstruction, uvula midline. Mucous membranes moist. Neck: Trachea midline, no thyromegaly or masses palpated, and no cervical lymphadenopathy. Supple, full range of motion without nuchal rigidity, or vertebral point tenderness. No Meningismus. Chest/axilla: Normal chest wall appearance and motion. Nontender with no deformity. No lesions are appreciated. Cardiovascular: Regular rate and rhythm with a normal S1 and S2. Normal PMI, no JVD. No pulse deficits. Respiratory: Lungs have equal breath sounds bilaterally, clear to auscultation. No rales, rhonchi or wheezes noted. No increased work of breathing, no retractions or nasal flaring. Back: No spinal tenderness. No costovertebral tenderness. Full range of motion. Skin: Warm, dry with normal turgor. Normal color with no rashes, no lesions, and no evidence of cellulitis. Neuro: Awake and alert, GCS 15, oriented to person, place, time, and situation. Cranial nerves II-XII grossly intact. Motor strength 5/5 in all extremities. Sensory grossly intact. Cerebellar exam normal. Normal gait. Vital Signs: 14:08 BP 128 / 79; Pulse 77; Resp 18 S; Temp 98.3(O); Pulse Ox 98% on R/A; Weight 90.72 kg aa5 (R); Height 5 ft. 4 in. (R); 14:08 Body Mass Index 34.33 (90.72 kg, 162.56 cm) aa5 MDM: 14:04 Medical Screening Exam initiated dr5 16:44 Differential diagnosis: viral Infection, bacterial infection, URI, pneumonia. Data dr5 reviewed: vital signs, nurses notes. I considered the following discharge prescriptions or medication management in the emergency department Medications were administered in the Emergency Department. See MAR. Care significantly affected by the following chronic conditions: Perianal fistula. Care significantly affected by the following Social Determinants of Health: Poor access to healthcare and/or lack of insurance, Poor access to transportation, Problems related to employment. Counseling: I had a detailed discussion with the patient and/or guardian regarding the historical points, exam findings, and any diagnostic results supporting the discharge/admit diagnosis, the presence of at least one elevated blood pressure reading (>120/80) during this emergency department visit, radiology results, the need for outpatient follow up, for definitive care, a family practitioner, to return to the emergency department if symptoms worsen or persist or if there are any questions or concerns that arise at home. ED course: Will cover patient for pneumonia with doxycycline and Vantin for community-acquired pneumonia. Dexamethasone injection given in ER. Recommended increasing hydration and alternating Tylenol Motrin as needed for pain and fever. All labs and chest x-ray results given to patient. All questions answered. Strict ER precautions given. 06/23 14:04 Order name: Group A Streptococcus Rapid; Complete Time: 14:35 dr5 06/23 14:04 Order name: COVID-19 Ag + Flu A+B Ag; Complete Time: 14:43 dr5 06/23 14:35 Order name: Throat Culture EDOK 06/23 14:04 Order name: Chest Pa And Lat (2 Views) XRAY; Complete Time: 15:30 dr5 Administered Medications: 14:47 Drug: Dexamethasone IM 10 mg IM once Route: IM; Site: right gluteus; kc6 Disposition Summary: 06/23/24 15:35 Discharge Ordered Notes: Location: Home dr5 Condition: Stable dr5 Diagnosis - Pneumonia due to other specified bacteria dr5 Followup: dr5 - With: Emergency Department - When: As needed - Reason: Worsening of condition Followup: dr5 - With: Private Physician - When: 1 - 2 days - Reason: Recheck today's complaints, Continuance of care, Re-evaluation by your physician Discharge Instructions: - Discharge Summary Sheet dr5 - Community-Acquired Pneumonia, Adult dr5 Forms: - Work release form dr5 - Medication Reconciliation Form dr5 - Antibiotic Education dr5 - Patient Portal Instructions dr5 - Leadership Thank You Letter dr5 Prescriptions: - Doxycycline Hyclate 100 mg Oral Tablet - take 1 tablet ORAL route every 12 hours; 20 tablet; Refills: 0, Product dr5 Selection Permitted - cefpodoxime 200 mg Oral tablet - take 1 tablet ORAL route every 12 hours for 10 days with food; 20 tablet; dr5 Refills: 0, Product Selection Permitted Addendum: 06/25/2024 14:44 I was immediately available for consultation during this patient's visit. I did not e c2 personally see the patient or discuss the patient with the DARYN. . Signatures: Dispatcher [employer] Nurys Mensah RN RN aa5 Cecille Duenas RN RN kc6 Fidel Salazar MD MD ec2 Tong Garg FNP-C FNP-Cdr5
== END 2024-06-23 15:43 | disposition home or self-care (01) ==
LOC: ER 13:57
DX: J15.8 Pneumonia due to other specified bacteria (principal); Z11.52 Encounter for screening for COVID-19
CPT/HCPCS: 87070; 36415; 71046; 96372; 99284; 87428; J1100